=== PATIENT | male | born 2000 | race Caucasian/White ===

== ENCOUNTER 2024-01-04 10:25 | Inpatient (IN) | payer SELFPAY ==
[2024-01-04] VITALS (7 sets, daily range): BP systolic 125–136; BP diastolic 73–92; PULSE 100–129; RESP 18–20; TEMP 36.5–36.8; O2SAT 92–99; BMI 18.1
--- NOTE | 2024-01-04 10:37 | ED.C_ITS ---
HPI - Psych 2 General: Chief Complaint: Psychiatric Symptoms Stated Complaint: mhe Time Seen by Provider: 01/04/24 10:29 Source: patient Mode of arrival: ambulatory Limitations: no limitations History of Present Illness: 23-year-old male states that he has been severely depressed. He states that history depression he supposed be on meds but has not taken them in months. Patient here is a very depressed mood is very slow to answer my questions he does admit to being suicidal and having active suicidal thoughts denies any specific plan. Associated symptoms: Reports depression and suicidal ideation Related Data Home Medications Medication Instructions Recorded Confirmed No Known Home Medications 01/04/24 01/04/24 Allergies Allergy/AdvReac Type Severity Reaction Status Date / Time Penicillins Allergy ALGY-Swell Verified 01/04/24 10:48 Lip/Tongue/Throat Review of Systems 2 Const: Denies: fever(s), chills, body aches or change in appetite ENMT: Denies: throat pain or dental pain Card: Denies: chest pain Resp: Denies: dyspnea GI: Denies: abdominal pain, nausea, vomiting or diarrhea Musc: Denies: neck pain or back pain Skin/Breast: Denies: rash Neuro: Denies: headache(s) Psych: Reports: depression and suicidal ideation Physical Exam 2 Const: COMMON NORMALS: no acute distress, patient oriented x3 and healthy appearing HENMT: COMMON NORMALS: normocephalic and atraumatic HEAD & SCALP: n ormocephalic and atraumatic Eye: COMMON NORMALS: conjunctivae normal CONJUNCTIVA: Yes conjunctivae normal Neck/C-Spine: COMMON NORMALS: full ROM and supple Chest: COMMONS NORMALS: normal inspection of the chest Resp: COMMON NORMALS: normal respiratory effort Cardio: COMMON NORMALS: regular rate RATE: regular rate Extremity: COMMON NORMALS: normal to inspection and full ROM Neuro: COMMON NORMALS: patient oriented x3, moves all extremities and no focal motor deficits Psych: MOOD & AFFECT: Yes depressed mood THOUGHT CONTENT: Yes Suicidality present Skin: COMMON NORMALS: no rashes or lesions noted and no wounds GENERAL SKIN EXAM: no rashes or lesions noted Course 2 Vital Signs: Vital signs: Vital Signs Temperature 98.2 F 01/04/24 10:37 Pulse Rate 129 H 01/04/24 10:37 Blood Pressure 130/82 01/04/24 10:37 Pulse Oximetry 96 01/04/24 10:37 Oxygen Delivery Me thod Room Air 01/04/24 10:37 MDM - Psych Medical Decision Making Patient presents here with depression along with suicidal ideations patient is medically cleared I spoke to psychiatrist will admit at this time. Medical Records I reviewed the patient's medical records. Lab Data I reviewed the patient's lab results. 01/04/24 11:11 01/04/24 11:11 Laboratory Results WBC 11.26 10^3/uL (3.29-11.43) 01/04/24 11:11 RBC 5.59 10^6/uL (3.85-5.65) 01/04/24 11:11 Hgb 16.20 g/dL (11.27-16.99) 01/04/24 11:11 Hct 47.8 % (37-53) 01/04/24 11:11 MCV 85.5 fl (82-101) 01/04/24 11:11 MCH 29.0 pg (27-33) 01/04/24 11:11 MCHC 33.9 g/dL (30-55) 01/04/24 11:11 RDW 13.1 % (12.1-15.1) 01/04/24 11:11 Plt Count 284 10^3/cmm (157-399) 01/04/24 11:11 MPV 10.5 fL (7.4-10.4) H 01/04/24 11:11 Neut % (Auto) 78.5 % 01/04/24 11:11 Lymph % (Auto) 14.6 % 01/04/24 11:11 [place] % (Auto) 5.6 % 01/04/24 11:11 Eos % (Auto) 0.1 % 01/04/24 11:11 Baso % (Auto) 0.8 % 01/04/24 11:11 Neut # (Auto) 8.85 10^3/uL (1.8-7.7) H 01/04/24 11:11 Lymph # (Auto) 1.6 10^3/uL (0.8-4.8) 01/04/24 11:11 [place] # (Auto) 0.6 10^3/uL (0.2-0.9) 01/04/24 11:11 Eos # (Auto) 0.0 10^3/uL (0.0-0.8) 01/04/24 11:11 Baso # (Auto) 0.1 10^3/uL (0.0-0.1) 01/04/24 11:11 Nucleated RBC % (auto) 0 % 01/04/24 11:11 Nucleated RBCs # 0.0 /100WBC 01/04/24 11:11 Urine Opiates Screen Negative ng/mL (Negative) 01/04/24 10:38 Ur Barbiturates Screen Negative ng/mL (Negative) 01/04/24 10:38 Ur Phencyclidine Scrn Negative ng/mL (Negative) 01/04/24 10:38 Ur Amphetamines Screen Negative ng/mL (Negative) 01/04/24 10:38 U Benzodiazepines Scrn Negative ng/mL (Negative) 01/04/24 10:38 Urine Cocaine Screen Negative ng/mL (Negative) 01/04/24 10:38 U Marijuana (THC) Screen Negative ng/mL (Negative) 01/04/24 10:38 No radiology studies performed this visit Discharge Plan Discharge Patient Disposition: Admitted As Inpatient Clinical Impression: Suicidal ideation Condition: Stable Prescriptions: No Action No Known Home Medications Coding Level of Care Code ED Rotary Lithographic Press Operator for Shanika Carter
[2024-01-04 11:06] LABS: Amphetamines Screen Urine Negative (Negative); Barbiturates Screen Urine Negative (Negative); Benzodiazepines Screen Urine Negative (Negative); Cocaine Screen Urine Negative (Negative); Opiate Screen Urine Negative (Negative); PCP Screen Urine Negative (Negative); THC Screen Urine Negative (Negative)
--- NOTE | 2024-01-04 11:23 | PC.NURSE ---
96 hour hold rights read and reviewed with patient. Patient given a copy and verbalized understandings.
[2024-01-04 11:25] LABS: Basophils # 0.1 10^3/uL (0.0-0.1); Basophils % 0.8 %; Eosinophils % 0.1 %; Hematocrit 47.8 % (37-53); Lymphocytes # 1.6 10^3/uL (0.8-4.8); Lymphocytes % 14.6 %; Mean Corpuscular HGB Conc 33.9 g/dL (30-55); Mean Corpuscular Volume 85.5 fl (82-101); Mean Platelet Volume 10.5 fL (7.4-10.4); Monocytes # 0.6 10^3/uL (0.2-0.9); Monocytes % 5.6 %; Neutrophils # 8.85 10^3/uL (1.8-7.7); Neutrophils % 78.5 %; Nucleated Red Blood Cells % 0 %; Platelet Count 284 10^3/cmm (157-399); Red Blood Count 5.59 10^6/uL (3.85-5.65); Red Cell Distribution Width 13.1 % (12.1-15.1); White Blood Count 11.26 10^3/uL (3.29-11.43)
[2024-01-04 11:46] LABS: Alanine Aminotransferase 13 U/L (0-41); Alkaline Phosphatase 80 U/L (40-130); Anion Gap 22.6 (5-19); Aspartate Amino Transferase 16 U/L (0-40); Blood Urea Nitrogen 20 mg/dL (6-20); Calcium 9.7 mg/dL (8.5-10.5); Carbon Dioxide 25 mmol/L (22-29); Chloride 99 mmol/L (98-107); Creatinine Clr Calc Pharmacy 119.7767; Globulin 3.4 g/dL (1.3-4.6); Glomerular Filtration Rate 119.8 mL/min (90-130); Glucose 92 mg/dL (65-115); Osmolality Calculated 298 mOsm/kg (285-295); Potassium 3.6 mmol/L (3.5-5.1); Sodium 143 mmol/L (136-145); Total Bilirubin 0.7 mg/dL (0.15-1.2); Total Protein 8.4 g/dL (6.6-8.7)
[2024-01-04 11:47] LABS: Acetaminophen < 5.0 ug/mL (10-30); Alcohol Level < 10 mg/dL (0-10); Salicylate < 0.3 mg/dL (3-10)
[2024-01-05 05:41] VITALS: BP 118/79; PULSE 99; RESP 16; TEMP 36.6; O2SAT 100
--- NOTE | 2024-01-05 09:10 | PC.NURSE ---
PT CURRENTLY DENIES SI/HI/AH/VH. PT CURRENTLY ENDORSES DEPRESSION AND ANXIETY RATING BOTH A 10/10 ON A 0-10 SCALE WHERE 0 IS NONE AND 10 IS THE WORST POSSIBLE. THIS NURSE SPOKE WITH PT ABOUT PRN MEDICATIONS. PT INITIALLY AGREED. ONCE PT WAS GIVEN MEDICATION PT DID NOT TAKE MEDICATION. PT JUST STARED AT THIS NURSE. THIS NURSE ASKED PT IF HE STILL WANTED TO TAKE THE MEDICATION. PT CONTINUED TO JUST STARE AT THIS NURSE. DURING ASSESSMENT PT TOLD THIS NURSE I FEEL GUILTY. THIS NURSE ASKED IF THE PT WAS WILLING TO EXPLAIN WHY HE FEELS GUILTY PT STATED THE WAY I TREAT PEOPLE. PT RESPONSES ARE DELAYED AND MUMBLED. PT APPEARS GUARDED AND IS EVASIVE. PT HAS AN UNBLINKING STARE DURING CONVERSATION WITH THIS NURSE. PT WAS COOPERATIVE WITH ASSESSMENT AT THIS TIME.
--- NOTE | 2024-01-05 09:44 | PC.NURSE ---
this DINKEY MECHANIC spoke with pt about medication list. pt states uses [facility]. pt states he only takes the medicine for acid indigestion but he isnt now and the other medication he was taking he did not like so he hasnt been taking it. pt shook his head yes when asked if it was ok if I spoke with his mother and the pharmacy for medication information. spoke with [facility] phramacist stated that pt last time they recieved an prescription was 01/03/23 but pt did not pick any of them up. sertraline,buspar,venlafxine, arpiprazole. prescribing doctor is rachel Werner at [facility] phone number [phone]
--- NOTE | 2024-01-05 13:00 | P.NPUHP_ITS ---
Providers/Chief Complaint 2 Admitting Physician: Justo Ordaz MD Chief Complaint: mhe HPI NPU History of Present Illness Dangelo Moore is a 23 year old male who presented to the emergency department with complaints of being severely depressed. It was uncertain as to how the patient had come to arrive in the emergency department. He was admitted to the neuropsychiatric unit for further evaluation and treatment. On interview, the patient reports that he has been feeling more depressed. He had endorsed having some increase in suicidal thoughts but was not specific. He had answered questions extremely slowly with significant halting in his speech often lasting several seconds. He had reported that he had been previously treated for bipolar schizophrenia and stated that his previous medications had not helped him. He reports that he has not been on medication for several months. He had reported that he was initially from [place] and had come here less than a year ago in order to follow a girl. He denied any substance use. He had endorsed having increased concern that he would somehow be harmed and was reporting that he had concerns that others around him could read his mind and that his thoughts were being broadcasted. He reported having periods of intense depression but was unable to elaborate. He had reported having problems with concentration. The patient had reported no change in appetite. He had reported no clear problems with any medical issues. He had reported having some problems with managing his worry. He had indicated that he was having some difficulties with trusting others. He stated that he had previously been psychiatrically hospitalized and stated that he did not like hospitals and that he did not like taking medications. The patient had reported that he had felt that he was in some kind of trouble because he was lying to others but he did not elaborate regarding this matter. Inpatient psychiatric history: Patient had reported 2 previous inpatient hospitalizations in the last few years 1 in [facility] and another in [facility] in [place] both for psychiatric issues. Previous records had revealed that the patient had been treated with Abilify on an inpatient basis as well. Outpatient psychiatric history: None Substance abuse history: He had minimized any use of drugs or alcohol. Allergies: Penicillin Medical history: None reported Surgical history: None reported Current medications: None reported Legal history: He had reported some history of having his fingerprints tested but reported no clear legal problems. Family psychiatric history: He had reported a history of bipolar and schizophrenia and the maternal side of the family. Social history: Patient reports that he was born in [facility]. He reported that he had graduated from high school. He had denied any history of trauma during his childhood and reports that he grew up residing with his mother and stepfather. He had reported no siblings. He had reported having to previous relationships and reported having a recent break-up with a girl in [place] as well as a previous relationship with another woman in [place] who he states chose to stay in [place] when the patient moved to [place] for less than obvious reasons. He denied any history of sexual physical or emotional abuse. Meds NPU Home Medications Medication Instructions Recorded Confirmed Last Taken Type No Known Home Medications 01/04/24 01/04/24 Unknown History Allergies Allergy/AdvReac Type Severity Reaction Status Date / Time Penicillins Allergy ALGY-Swell Verified 01/04/24 10:48 Lip/Tongue/Throat Mental Status Exam 2 MSE Comments: Patient is a thin white male who appeared somewhat malnourished. There was no evidence of any abnormal involuntary motor movements tics or tremors appreciated. There was extreme psychomotor slowing noted but no overt catatonia appreciated. His speech was halting and extremely slow with incredibly prominent increase in speech latency. His thought process was linear and logical. His thought content showed some evidence of suicidal ideation without a plan. He denied any homicidal ideation. There was also evidence of guilt and a sense of hopelessness. He had acknowledged auditory hallucinations and did appear at times to be responding to internal stimuli. There was clear paranoia and evidence of some odd delusions and ideas of reference along with thought broadcasting noted. He was alert and oriented to person but did not answer regarding place or time. His recent and remote memory appeared poor at this time. His insight is impaired. His judgment is poor. His impulse control appeared limited. Vitals/I&O/Wt Last Vital Signs Temp 97.9 F 01/05/24 14:00 Pulse 105 H 01/05/24 14:00 Resp 18 01/05/24 14:00 BP 146/92 01/05/24 14:00 Pulse Ox 98 01/05/24 14:00 O2 Del Method Room Air 01/04/24 12:13 Weight last 48 hrs Weight 58.967 kg Data NPU 01/04/24 11:11 01/04/24 11:11 A&P Assessment and plan (1) Schizophrenia: Plan 23-year-old male admitted with a past history of schizophrenia or bipolar disorder currently on no medications and presenting with severe psychosis including thought blocking and thought broadcasting. #1.? Engage patient in individual milieu and group therapy. #2?? Recommend sober living treatment at the highest level of care to which the patient is willing to commit #3??? Trial of Invega recommended at 3mg, if patient refuses medication, will likely require forced medication as patient to remain on 96 hour hold. #4?? TO-15 minute checks #5?? Will attempt to gather collateral information Involuntary Hold Information 2 96 Hour Hold: 96 Hour Involuntary Admission: Yes 96 Hour Hold Ending Date: 01/10/24 96 Hour Hold Ending Time: 10:45 Attestations NPU 2 Medical Necessity Statement*: Inpatient hospitalization is medically necessary and deemed to ?be ?the clinically appropriate intervention ?at this time.? We will monitor/initiate medications and make changes as indicated.? The patient will be in the hospital for over 2 midnights.? The patient?s likely length of stay 7-10 days. Coding Level of Care Code Acute Code for Chg Fwd Diagnoses Schizophrenia F20.9
--- NOTE | 2024-01-05 13:15 | PC.NURSE ---
PT REFUSED SCHEDULED INVEGA. PT STATED THAT HE WAS WILLING TO TAKE THE MEDICATION THEN REFUSED TO TAKE IT. PT HELD THE MEDICATION CUP AND MOVED THE MEDICATION AROUND IN THE MED CUP BUT NEVER ATTEMPTED TO TAKE THE MEDICATION. PT THEN REFUSED TO TAKE THE MEDICATIONS.
[2024-01-05 14:00] VITALS: BP 146/92; PULSE 105; RESP 18; TEMP 36.6; O2SAT 98
--- NOTE | 2024-01-05 16:24 | PC.NURSE ---
@1532 female patient came to nurses window stating pt was in hallway without clothing. this maintenance and operations supervisor, CAT Escamilla, and Cat Aranda went out into hallway requested pt to go back into room an to please put his clothes back on. after walking up and down the hallway pt finally walked into his room, pt continues to stare at nursing staff but does not say anything. pt pulling on bottom of his shirt like he would like to rip it as he is pacing in his room.
--- NOTE | 2024-01-05 17:22 | PC.NURSE ---
pt in room ripped shirt in half, came out of bathroom with pants down walking towards this tar chaser and case management. pt did not respond verbally when spoken to but did after a pause pulled up his pants and gave this tar chaser his ripped shirt and replaced it with another one. pt while holding new shirt acted like he was tring to rip that one in half. security out in hallway for dayo.
[2024-01-05] MEDS: diphenhydrAMINE 50 mg/mL SDV 1mL IM (18:36)
[2024-01-05] MEDS: LORazepam 2 mg/mL INJ 1 mL IM (18:37)
[2024-01-05] MEDS: haloperidol inj 5 mg/mL INJ 1 mL IM (18:37)
--- NOTE | 2024-01-05 18:37 | PC.NURSE ---
GENERATION MANAGER ALERTED THIS NURSE THAT PT WAS ATTEMPTING TO RIP OFF HIS SCRUBS AGAIN. THIS NURSE WENT TO SPEAK WITH PT AND SEE IF THERE WAS SOMETHING WE COULD DO TO ASSIST. PT DID NOT RESPOND VERBALLY JUST CONTINUED TO ATTEMPT TO RIP HIS SCRUBS THIS NURSE OFFERED TO TAKE HIM INTO A ROOM THAT WOULD BE ONLY HIS TO MAKE HIM MORE COMFORTABLE. PT FOLLOWED THIS NURSE AND THE GENERATION MANAGER INTO HIS PRIVATE ROOM AND CONTINUED TO ATTEMPT TO RIP HIS SHIRT OFF. THIS NURSE WENT TO SPEAK WITH PHYSICIAN ABOUT NEXT STEP. PHYSICIAN ORDERED FOR PT TO RECEIVE BENADRYL 50MG IM, 5MG HALDOL IM AND 2MG ATIVAN IM. THIS NURSE CONTACTED SECURITY WHILE OPERATOR COATING FURNACE AND GENERATION MANAGER ARE WATCHING PT. THIS NURSE PREPARED MEDICATION AND THEN MEDICATIONS WERE ADMINISTERED.
--- NOTE | 2024-01-05 18:58 | PC.NURSE ---
@1825 walked down [facility] to observe pts, upon arriving to pt room pt looking out the window pt pulling on shirt attempting to rip it off, also pulling neckline of shirt hard enough to pull himself off balance an stumbling sideways. pt turn from window continuing to attempt to rip shirt off at that time pt pulled shirt up neck like he was going to choke himself x 3 times. Notified Auto Electrical Technician of pt activities.security called.this service station cashier verbally instructed pt that he was to stop pulling on his shirt and that we did not do that here, pt continued pulling shirt but did not pull his shirt as to choke himself. charge hand and security came to room pt asked to lay on bed,pt complied, Benadryl 50mg, Haldol 5mg and lorazepam 2mg administered Im by this service station cashier and Charge nurse. pt continues to lay in bed.
--- NOTE | 2024-01-05 19:45 | PC.NURSE ---
girlfriend number [phone] mom number [phone]
[2024-01-05 20:27] VITALS: BP 109/70; PULSE 111; RESP 15; O2SAT 99
[2024-01-06 06:00] VITALS: BP 116/77; PULSE 119; RESP 18; O2SAT 97
[2024-01-06] MEDS: paliperidone ER 3 mg Tablet PO (09:34)
[2024-01-06 14:00] VITALS: BP 108/70; PULSE 116; RESP 16; TEMP 36.6; O2SAT 98
--- NOTE | 2024-01-06 17:10 | P.NPUPN_ITS ---
Subjective NPU 2 Subjective: 23-year-old male with a history of unspe cified psychosis and possible schizophrenia admitted with paranoia, and complaints of depression, suicidal ideation and thought broadcasting. Patient had engaged in some very unusual behavior on the unit. He had stripped off his close yesterday and was walking around naked. He had required as needed medications for agitation. He had initially refused to take his medication orally but was able to take his medication this morning without difficulty. He had continued to report that he felt guilty and stated that he was feeling suicidal. He had admitted to having a relapse with the presence of the symptoms after discontinuing the medication shortly after his last hospitalization in the winter 2022. Mental Status Exam 2 MSE Comments: Patient is a thin white male who appeared to have significant psychomotor slowing. There was no evidence of any abnormal involuntary motor movements tics or tremors appreciated. His speech was halting and slow with incredibly prominent increase in increasee in speech latency. His thought process was linear but superficial. His thought content showed some evidence of suicidal ideation without a plan. He denied any homicidal ideation. There was also evidence of guilt and a sense of hopelessness. He had acknowledged auditory hallucinations and did appear at times to be responding to internal stimuli. There was clear paranoia and evidence of some odd delusions and ideas of reference along with thought broadcasting noted. He was alert and oriented to person but did not answer regarding place or time. There was active paranoia. His recent and remote memory appeared poor at this time. His insight is impaired. His judgment is poor. His impulse control appeared limited. He was alert and oriented to person and place, month and year but not date or day of week. Vitals/I&O/Wt Last Vital Signs Temp 97.8 F 01/06/24 14:00 Pulse 116 H 01/06/24 14:00 Resp 16 01/06/24 14:00 BP 108/70 01/06/24 14:00 Pulse Ox 98 01/06/24 14:00 O2 Del Method Room Air 01/04/24 12:13 Data NPU 01/04/24 11:11 01/04/24 11:11 A&P Assessment and plan (1) Schizophrenia: Plan 23-year-old male admitted with a past history of schizophrenia or bipolar disorder currently on no medications and presenting with severe psychosis including thought blocking and thought broadcasting. #1.? Engage patient in individual milieu and group therapy. #2?? Recommend sober living treatment at the highest level of care to which the patient is willing to commit #3??? Increase invega to 6mg daily, if patient refuses medication, he will likely require forced medication as patient to remain on 96 hour hold. #4?? TO-15 minute checks #5?? Will attempt to gather collateral information Involuntary Hold Information 2 96 Hour Hold: 96 Hour Involuntary Admission: Yes 96 Hour Hold Ending Date: 01/10/24 96 Hour Hold Ending Time: 10:45 Attestations NPU 2 Medical Necessity Statement*: Inpatient hospitalization is medically necessary and deemed to ?be ?the clinically appropriate intervention ?at this time.? We will monitor/initiate medications and make changes as indicated.? The patient?s likely length of stay 7-10 days. Coding Level of Care Code Acute Code for Chg Fwd Diagnoses Schizophrenia F20.9
[2024-01-06 22:00] VITALS: BP 111/78; PULSE 103; RESP 18; TEMP 36.8; O2SAT 97
[2024-01-07 06:00] VITALS: BP 99/68; PULSE 113; RESP 18; O2SAT 98
[2024-01-07] MEDS: paliperidone ER 3 mg Tablet 6 MG PO (08:41)
--- NOTE | 2024-01-07 08:45 | PC.NURSE ---
RN IN ROOM TO ATTEMPT ASSESSMENT. PT IS EVASIVE WITH ASSESSMENT AND PRESENTS WITH FLAT AFFECT AND STARES OFF INTO SPACE. WHEN ASKED A QUESTION PT LOOKS UP OR TO THE SIDE THEN ANSWERS THE QUESTION WITH A DELAYED RESPONSE AND IS NOTED TO HAVE DIFFICULTY FINDING THE WORDS OR FORMING SENTENCE STRUCTURE. MOOD APPEARS DEPRESSED. DOES RATE ANXIETY 4/10 AND DEPRESSION SHAKES HIS HEAD NO SHAKES HEAD YES TO SLEEPING GOOD LAST NIGHT. PT MAKES LITTLE TO NO EYE CONTACT WITH NURSE. DENIES PAIN. WHEN ASKED WHAT HIS GOAL IS FOR THE DAY PT CONTINUES TO STARE AT THE FLOOR AND GIVES NO REPSONSE. RN ASKED IF HE NEEDED ANYTHING, PT CONTINUED TO STARE OFF AND DID NOT ANSWER. SUPPORT WAS VOICED. PT DOES NOT INTERACT WITH STAFF OR PEERS. WITHDRAWS TO ROOM AND ISOLATES AWAY FROM OTHERS.
--- NOTE | 2024-01-07 11:34 | PC.NURSE ---
PT WAS OBSERVED PACING IN DAYROOM PULLING AT SCRUB TOP IF HE WAS VERY AGITATED. STAFF OBSERVED ANOTHER PT HAD MOVED CHAIRS AND TABLES RESULTING IN BLOCKING IN PT IN THE DAY ROOM. THE OTHER PT WAS ALSO OBSERVED TALKING TO HIM NON STOP WHICH RESULTED IN AGITATING HIM MORE. STAFF IMMEDIATELY WENT AND RE-ARRANGED THE CHAIRS AND TABLES SO PT COULD MOVE FREELY. STAFF ALSO REDIRECTED THE OTHER PT AWAY FROM HIM AND EDUCATED TO STOP TALKING TO HIM EXCESSIVELY. PT WAS OFFERED PRN ANXIETY MEDICATIONS BUT PT JUST STOOD AND STARED AT STAFF PULLING ON SCRUB TOP AND DID NOT SAY A WORD. PT THEN WENT TO ROOM LAID DOWN, TOOK OFF SCRUB TOP AND WAS OBSERVED RESTING. PT CONTINUES TO STAY IN ROOM AND REST. THE OTHER PATIENT ON THE UNIT THAT WAS UPSETTING HIM WAS MOVED TO THE NORTH SIDE TO DISCOURAGE ANYMORE ANXIETY INDUCING BEHAVIORS. .
[2024-01-07 14:00] VITALS: BP 116/77; PULSE 95; RESP 16; TEMP 36.6; O2SAT 100
--- NOTE | 2024-01-07 14:33 | P.NPUPN_ITS ---
Subjective NPU 2 Subjective: 23-year-old male with a history of unspe cified psychosis and possible schizophrenia admitted with paranoia, and complaints of depression, suicidal ideation and thought broadcasting. The patient described his mood is not well. He had continued to isolate himself on the milieu. He had not engaged in any stripping of his close today. He continued to endorse feeling as if his thoughts were somehow betraying him. He had reported some feelings of guilt and continued to endorse depressed mood. The patient reported having a significant amount of worry but would not elaborate. The patient had reported having some difficulties with sleep. Mental Status Exam 2 MSE Comments: Patient is a thin white male who appeared to have significant psychomotor slowing. There was no evidence of any abnormal involuntary motor movements tics or tremors appreciated. His speech was halting and slow with incredibly prominent increase in increasee in speech latency. His thought process was linear but superficial. His thought content showed some evidence of suicidal ideation without a plan. He denied any homicidal ideation. There was also evidence of guilt and a sense of hopelessness. He had acknowledged auditory hallucinations and did appear at times to be responding to internal stimuli. There was clear paranoia and evidence of some odd delusions and ideas of reference along with thought broadcasting noted. He was alert and oriented to person but did not answer regarding place or time. There was active paranoia. His recent and remote memory appeared poor at this time. His insight is impaired. His judgment is poor. His impulse control appeared limited. He was alert and oriented to person and place, month and year but not date or day of week. Vitals/I&O/Wt Last Vital Signs Temp 98 F 01/07/24 14:00 Pulse 95 01/07/24 14:00 Resp 16 01/07/24 14:00 BP 116/77 01/07/24 14:00 Pulse Ox 100 01/07/24 14:00 O2 Del Method Room Air 01/07/24 06:00 Data NPU 01/04/24 11:11 01/04/24 11:11 A&P Assessment and plan (1) Schizophrenia: Plan 23-year-old male admitted with a past history of schizophrenia or bipolar disorder currently on no medications and presenting with severe psychosis including thought blocking and thought broadcasting. #1.? Engage patient in individual milieu and group therapy. #2?? Recommend sober living treatment at the highest level of care to which the patient is willing to commit #3???Continue invega 6mg daily, if patient refuses medication, he will likely require forced medication as patient to remain on 96 hour hold. #4?? TO-15 minute checks #5?? Will attempt to gather collateral information Involuntary Hold Information 2 96 Hour Hold: 96 Hour Involuntary Admission: Yes 96 Hour Hold Ending Date: 01/10/24 96 Hour Hold Ending Time: 10:45 Attestations NPU 2 Medical Necessity Statement*: Inpatient hospitalization is medically necessary and deemed to ?be ?the clinically appropriate intervention ?at this time.? We will monitor/initiate medications and make changes as indicated.? The patient?s likely length of stay 7-10 days. Coding Level of Care Code Acute Code for Chg Fwd Diagnoses Schizophrenia F20.9
[2024-01-07 20:50] VITALS: BP 124/89; PULSE 128; RESP 20; TEMP 36.4; O2SAT 98
[2024-01-07] MEDS: diphenhydrAMINE 50 mg/mL SDV 1mL IM (20:52)
[2024-01-07] MEDS: LORazepam 2 mg/mL INJ 1 mL IM (21:25)
[2024-01-07 22:16] VITALS: BP 121/86; PULSE 108; RESP 17; TEMP 36.6; O2SAT 99
--- NOTE | 2024-01-07 23:18 | PC.NURSE ---
Patient medication reaction Around 2044 patient calmly walked up to the nurse?s station complaining of his neck hurting. It was observed that his head was tipped toward his left shoulder and fixed. This nurse administered Cogentin per protocol for EPS, see Mar, than called Dr. Singer immediately. Orders where given to give 50 mg of Benadryl IM and it was administered at 2049, see MAR, while patient was sitting on the bench. Security was present. It was observed that the patient?s eyes were fixed and he was not responding to questions unless they were repeated several times. Patient was than assisted back to his room and this nurse and CK Manriquez stayed with the patient. type photography supervisor Xochilt was notified and arrived shortly after. By 2112, the patient?s symptoms, as stated, where not improving so this nurse called Dr. Singer again. Orders were given to give 2 mg Ativan IM. It was given at 2122, see MAR. New orders received for further treatment if symptoms return. Staff remained with patient. Around 2139 the patients symptoms had resolved and he walked to the desk to get snacks. Patient than went to the dayroom and played cards and CK Manriquez remained with him for approximately 30 minutes. Patient remained calm during this episode. Patient stated the symptoms had started just moments before he notified staff. Patient was educated that if these symptoms return to notify staff immediately.
[2024-01-08 06:00] VITALS: BP 101/65; PULSE 78; RESP 16; O2SAT 97
--- NOTE | 2024-01-08 09:27 | PC.NURSE ---
Addendum entered by Kori Christianson RN 01/08/24 09:29: continuation of note: Patient also said that he is doing better than yesterday because he is not letting thoughts get into my head. This nurse asked if he remembered what has been going on over the last few days. Patient said that he remembers groups and what people have told him. Patient oriented to self and location, able to answer that he is in a hospital in [place]. Denies pain. BM today. Original Note: Morning Assessment Patient cooperative and appropriate during morning assessment. Patient had appropriate eye contact with this nurse, with appropriate speech delivery. Patient denies suicidal thoughts, homicidal thoughts, and AVH. Patient states that he has some anxious and depressive feelings because he is always trying to make everybody else happy, always trying to not let people down. Patient went on to say that he puts everybody's needs above his own needs. Aliyah
[2024-01-08 14:00] VITALS: BP 106/72; PULSE 103; RESP 16; TEMP 36.8; O2SAT 96
--- NOTE | 2024-01-08 14:53 | P.NPUPN_ITS ---
Subjective NPU 2 Subjective: 23-year-old male with a history of unspe cified psychosis and possible schizophrenia admitted with paranoia, and complaints of depression, suicidal ideation and thought broadcasting. The patient had reported feeling significantly better and was more alert and engaged in treatment. Unfortunately the patient appeared to have some episode of neck stiffness a lot requiring the use of anticholinergics last night to relieve the symptoms. He had also reported having this problem previously on Abilify approximately 9 months ago. He had continued to report being distracted by his thoughts but stated that it was better currently. There was no episodes of stripping his clothes off yesterday. Mental Status Exam 2 MSE Comments: Patient is a thin white male who appeared to have significant psychomotor slowing. There was no evidence of any abnormal involuntary motor movements tics or tremors appreciated. His speech was halting but more fluent and less prominent speech latency. His thought process was linear but superficial. His thought content showed some evidence of suicidal ideation without a plan. He denied any homicidal ideation. There was also evidence of guilt and a sense of hopelessness. He had acknowledged auditory hallucinations and did appear at times to be responding to internal stimuli. There was clear paranoia and evidence of some odd delusions and ideas of reference along with thought broadcasting noted. He was alert and oriented to person but did not answer regarding place or time. There was active paranoia. His recent and remote memory appeared poor at this time. His insight is impaired. His judgment is poor. His impulse control appeared limited. He was alert and oriented to person and place, month and year but not date or day of week. Vitals/I&O/Wt Last Vital Signs Temp 98.2 F 01/08/24 14:00 Pulse 103 H 01/08/24 14:00 Resp 16 01/08/24 14:00 BP 106/72 01/08/24 14:00 Pulse Ox 96 01/08/24 14:00 O2 Del Method Room Air 01/08/24 14:00 Weight last 48 hrs Weight 60.951 kg Data NPU 01/04/24 11:11 01/04/24 11:11 A&P Assessment and plan (1) Schizophrenia: Plan 23-year-old male admitted with a past history of schizophrenia or bipolar disorder currently on no medications and presenting with severe psychosis including thought blocking and thought broadcasting. #1.? Engage patient in individual milieu and group therapy. #2?? Recommend sober living treatment at the highest level of care to which the patient is willing to commit #3???Will hold Invega and begin Abilify 10mg daily instead. #4?? TO-15 minute checks #5?? Will attempt to gather collateral information Involuntary Hold Information 2 96 Hour Hold: 96 Hour Involuntary Admission: Yes 96 Hour Hold Ending Date: 01/10/24 96 Hour Hold Ending Time: 10:45 Attestations NPU 2 Medical Necessity Statement*: Inpatient hospitalization is medically necessary and deemed to ?be ?the clinically appropriate intervention ?at this time.? We will monitor/initiate medications and make changes as indicated.? The patient?s likely length of stay 7-10 days. Coding Level of Care Code Acute Code for Chg Fwd Diagnoses Schizophrenia F20.9
[2024-01-08] MEDS: benztropine 1 mg Tablet PO (17:58)
[2024-01-08] MEDS: ARIPiprazole 10 mg Tablet PO (20:09)
[2024-01-08] MEDS: hyDROXYzine 25 mg Capsule 50 MG PO (20:09)
[2024-01-08 21:29] VITALS: BP 123/77; PULSE 108; RESP 18; TEMP 36.5; O2SAT 96
[2024-01-09 06:00] VITALS: BP 118/78; PULSE 105; RESP 17; TEMP 36.4; O2SAT 98
--- NOTE | 2024-01-09 08:54 | PC.NURSE ---
IN DAY ROOM EATING BREAKFAST. DENIES PAIN. DENIES SI/HI AND AVH AT THIS TIME. PT IS NOTED TO HAVE FLAT AFFECT BUT IS INTERACTING WITH RN BETTER THAN PREVIOUS DAYS. PTS SPEECH IS NO LONGER DELAYED. RATES ANXIETY 5/10 AND DEPRESSION 4/10. MED NURSE NOTIFIED OF INCREASED ANXIETY SO PT CAN RECEIVE MEDICATIONS TO HELP DECREASE HIS ANXIETY. PT STATES GOAL FOR THE DAY IS THE SAME USUAL I NEED TO JUST GET RIGHT I GUESS. PT REPORTED A REACTION WHILE TAKING THE INVEGA THAT IT MADE MY NECK REAL TIGHT. PT WAS EDUCATED THAT HE WOULD CONTINUE TO RECEIVE COGENTIN WHILE ON ANTIPSYCHOTICS TO REDUCE AND RELIEVE THE EFFECTS. PT VERBALZIED UNDERSTANDING. ALL QUESTIONS ANSWERED AND SUPPORT VOICED.
[2024-01-09] MEDS: benztropine 1 mg Tablet PO ×2 (09:04→17:50)
[2024-01-09] MEDS: hyDROXYzine 25 mg Capsule 50 MG PO ×2 (09:04→21:06)
[2024-01-09 14:00] VITALS: BP 116/77; PULSE 107; RESP 16; TEMP 36.7; O2SAT 99
--- NOTE | 2024-01-09 16:11 | P.NPUPN_ITS ---
Subjective NPU 2 Subjective: 23-year-old male with a history of unspe cified psychosis and likely schizophrenia admitted with paranoia, and complaints of depression, suicidal ideation and thought broadcasting. The patient reported that he continued to have isolate himself fearing that others could listen to his thoughts. The patient had reported adequate sleep. He had reported no complaints of neck stiffness today. He reported continued depression but minimized having thoughts of suicide today. He had continued to state that he had been distracted by his thoughts as he had described having problems with making decisions. No bizarre behavior was noted on the unit today. Mental Status Exam 2 MSE Comments: Patient is a thin white male who appeared to have significant psychomotor slowing. There was no evidence of any abnormal involuntary motor movements tics or tremors appreciated. His speech was halting but more fluent and with continued increase in speech latency. His thought process was linear but superficial. His thought content showed some evidence of suicidal ideation without a plan. He denied any homicidal ideation. There was also evidence of guilt and a sense of hopelessness. He had acknowledged auditory hallucinations and did appear at times to be responding to internal stimuli. There was clear paranoia and evidence of some odd delusions and ideas of reference along with thought broadcasting noted. He was alert and oriented to person but did not answer regarding place or time. There was active paranoia. His recent and remote memory appeared poor at this time. His insight is impaired. His judgment is poor. His impulse control appeared limited. He was alert and oriented to person and place, month and year but not date or day of week. Vitals/I&O/Wt Last Vital Signs Temp 98.1 F 01/09/24 14:00 Pulse 107 H 01/09/24 14:00 Resp 16 01/09/24 14:00 BP 116/77 01/09/24 14:00 Pulse Ox 99 01/09/24 14:00 O2 Del Method Room Air 01/09/24 14:00 Weight last 48 hrs Weight 60.951 kg Data NPU 01/04/24 11:11 01/04/24 11:11 A&P Assessment and plan (1) Schizophrenia: Plan 23-year-old male admitted with a past history of schizophrenia or bipolar disorder currently on no medications and presenting with severe psychosis including thought blocking and thought broadcasting. #1.? Engage patient in individual milieu and group therapy. #2?? Recommend sober living treatment at the highest level of care to which the patient is willing to commit #3???Increase abilify to 15mg daily. #4?? TO-15 minute checks #5?? Will attempt to gather collateral information Involuntary Hold Information 2 96 Hour Hold: 96 Hour Involuntary Admission: Yes 96 Hour Hold Ending Date: 01/10/24 96 Hour Hold Ending Time: 10:45 Attestations NPU 2 Medical Necessity Statement*: Inpatient hospitalization is medically necessary and deemed to ?be ?the clinically appropriate intervention ?at this time.? We will monitor/initiate medications and make changes as indicated.? The patient?s likely length of stay 5-7 days. Coding Level of Care Code Acute Code for Chg Fwd Diagnoses Schizophrenia F20.9
[2024-01-09] MEDS: ARIPiprazole 10 mg Tablet PO (21:06)
[2024-01-09 22:00] VITALS: BP 124/86; PULSE 91; RESP 16; TEMP 36.7; O2SAT 98
[2024-01-10 06:00] VITALS: BP 100/69; PULSE 97; RESP 13; TEMP 37.2; O2SAT 97
[2024-01-10] MEDS: benztropine 1 mg Tablet PO ×2 (08:56→18:40)
[2024-01-10 14:00] VITALS: BP 121/82; PULSE 89; RESP 16; O2SAT 99
--- NOTE | 2024-01-10 16:49 | P.NPUPN_ITS ---
Subjective NPU 2 Subjective: 23-year-old male with a history of unspe cified psychosis and likely schizophrenia admitted with paranoia, and complaints of depression, suicidal ideation and thought broadcasting. The patient had reported feeling much better. He had been less isolative on the milieu. He had been conversant with other peers. The patient had stated that he had spoken with his current girlfriend and was willing to sign into the hospital voluntarily today. The patient was able to admit that he had been noncompliant with these medications before but stated that he would probably be able to remember to take 1 pill a day. He had been reporting less ideas of feeling as if his mind and thoughts were being broadcasted for 2 others. Mental Status Exam 2 MSE Comments: Patient is a thin white male who appeared to have less psychomotor slowing. There was no evidence of any abnormal involuntary motor movements tics or tremors appreciated. His speech was halting but more fluent and with less speech latency. His thought process was linear and logical. His thought content showed no suicidal or homicidal ideation. He had acknowledged auditory hallucinations and did appear at times to be responding to internal stimuli. There was residual paranoia but no overt paranoia. He was alert and oriented to person but did not answer regarding place or time. His recent and remote memory appeared poor at this time. His insight is impaired. His judgment is poor. His impulse control appeared limited. He was alert and oriented to person and place, month and year but not date or day of week. Vitals/I&O/Wt Last Vital Signs Temp 99.0 F 01/10/24 06:00 Pulse 89 01/10/24 14:00 Resp 16 01/10/24 14:00 BP 121/82 01/10/24 14:00 Pulse Ox 99 01/10/24 14:00 O2 Del Method Room Air 01/10/24 06:00 Data NPU 01/04/24 11:11 01/04/24 11:11 A&P Assessment and plan (1) Schizophrenia: Plan 23-year-old male admitted with a past history of schizophrenia or bipolar disorder currently on no medications and presenting with severe psychosis including thought blocking and thought broadcasting. #1.? Engage patient in individual milieu and group therapy. #2?? Recommend sober living treatment at the highest level of care to which the patient is willing to commit #3?? Continue abilify at 15mg daily. #4?? TO-15 minute checks #5?? Will attempt to gather collateral information Involuntary Hold Information 2 96 Hour Hold: 96 Hour Involuntary Admission: Yes 96 Hour Hold Ending Date: 01/10/24 96 Hour Hold Ending Time: 10:45 Attestations NPU 2 Medical Necessity Statement*: Inpatient hospitalization is medically necessary and deemed to ?be ?the clinically appropriate intervention ?at this time.? We will monitor/initiate medications and make changes as indicated.? The patient?s likely length of stay 5-7 days. Coding Level of Care Code Acute Code for Chg Fwd Diagnoses Schizophrenia F20.9
[2024-01-10 20:20] VITALS: BP 119/83; PULSE 85; RESP 18; TEMP 36.6; O2SAT 99
[2024-01-10] MEDS: sennosides-docusate Tablet 1 TAB PO (20:29)
[2024-01-10] MEDS: hyDROXYzine 25 mg Capsule 50 MG PO (20:29)
[2024-01-10] MEDS: ARIPiprazole 10 mg Tablet 15 MG PO (20:29)
[2024-01-11 06:00] VITALS: BP 107/74; PULSE 97; RESP 16; TEMP 36.6; O2SAT 99
[2024-01-11] MEDS: benztropine 1 mg Tablet PO ×2 (08:41→17:42)
[2024-01-11] MEDS: bisacodyl 10 mg Supp PR (11:13)
[2024-01-11 14:00] VITALS: BP 116/80; PULSE 106; RESP 16; TEMP 36.9; O2SAT 97
--- NOTE | 2024-01-11 18:47 | P.NPUPN_ITS ---
Subjective NPU 2 Subjective: 23-year-old male with acute psychosis ad mitted with increased paranoia and thought broadcasting. The patient reported feeling much better. He reported no suicidal thoughts. He had stated that he felt much better other than having problems with extreme constipation. He had stated that he was less fearful that his thoughts were being broadcast and stated that the voices in his head were quieter. The patient reported that he was comfortable with going home soon and stated that he understood that he needed to continue to take this medication to prevent relapse. Mental Status Exam 2 MSE Comments: Patient is a thin white male who appeared to have considerably less psychomotor slowing. There was no evidence of any abnormal involuntary motor movements tics or tremors appreciated. His speech was more fluent and minimal speech latency. His thought process was linear and logical. His thought content showed no suicidal or homicidal ideation. He had acknowledged auditory hallucinations that were quieter as he did not appear to be responding to internal stimuli. There was no paranoia. He His recent and remote memory appeared improved at this time. His insight is improving. His judgment is better. His impulse control appeared guarded. He was alert and oriented x3 Vitals/I&O/Wt Last Vital Signs Temp 98.4 F 01/11/24 14:00 Pulse 106 H 01/11/24 14:00 Resp 16 01/11/24 14:00 BP 116/80 01/11/24 14:00 Pulse Ox 97 01/11/24 14:00 O2 Del Method Room Air 01/11/24 14:00 Data NPU 01/04/24 11:11 01/04/24 11:11 A&P Assessment and plan (1) Schizophrenia: Plan 23-year-old male admitted with a past history of schizophrenia or bipolar disorder currently on no medications and presenting with severe psychosis including thought blocking and thought broadcasting. #1.? Engage patient in individual milieu and group therapy. #2?? Recommend sober living treatment at the highest level of care to which the patient is willing to commit #3?? Continue abilify at 15mg daily. #4?? TO-15 minute checks #5?? Will help with constipation today, use of suppository and laxative. Likely d/c in 1-2 days. Involuntary Hold Information 2 96 Hour Hold: 96 Hour Involuntary Admission: Yes 96 Hour Hold Ending Date: 01/10/24 96 Hour Hold Ending Time: 10:45 Attestations NPU 2 Medical Necessity Statement*: Inpatient hospitalization is medically necessary and deemed to ?be ?the clinically appropriate intervention ?at this time.? We will monitor/initiate medications and make changes as indicated.? The patient?s likely length of stay 1-2 days. Coding Level of Care Code Acute Code for Chg Fwd Diagnoses Schizophrenia F20.9
[2024-01-11 20:17] VITALS: BP 118/79; PULSE 93; RESP 18; TEMP 36.4; O2SAT 100
[2024-01-11] MEDS: sennosides-docusate Tablet 1 TAB PO (21:08)
[2024-01-11] MEDS: ARIPiprazole 10 mg Tablet 15 MG PO (21:09)
[2024-01-12 06:30] VITALS: BP 120/74; PULSE 89; RESP 17; TEMP 36.4; O2SAT 98
--- NOTE | 2024-01-12 09:33 | PC.NURSE ---
IN DAY ROOM EATING. PT CONTINUES TO HAVE A VERY FLAT AFFECT WITH DELAYED SPEECH AND SLOW TO RESPOND TO QUESTIONS. PT APPEARS TO BE CONFUSED ABOUT WHAT RN IS ASKING AND HAS TO BE PROMPTED ON THE ANSWERS OR QUESTIONS NEED REPEATED. DENIES PAIN.. DENIES SI/HI AND AVH AT THIS TIME. REPORTS HE SLEPT OKAY I THINK STATES HE HAS NOT HAD A BM IN A FEW DAYS BUT HAS TAKEN SOMETHING TO GO. PT STATES HIS GOAL IS TO LEAVE AND SEE MY FAMILY. PT WAS GIVEN PRIVACY TO USE THE RESTROOM. ALL QUESTIONS ANSWERED AND SUPPORT WAS VOICED.
[2024-01-12] MEDS: benztropine 1 mg Tablet PO ×2 (10:55→17:01)
[2024-01-12] MEDS: magnesium hydroxide 30 mL UDC PO (10:55)
[2024-01-12 14:00] VITALS: BP 117/72; PULSE 117; RESP 16; TEMP 36.5; O2SAT 97
--- NOTE | 2024-01-12 14:56 | P.NPUPN_ITS ---
Subjective NPU 2 Subjective: 23-year-old male with acute psychosis ad mitted with increased paranoia and thought broadcasting. The patient had reported feeling worse today. He had reported feeling guilty and stated that he had been lying to his friends and family regarding how he was doing. He had reported that he continued to feel distracted by his thoughts. He was found to be spending excessive amounts of time in the bathroom. He had complained of constipation but stated that he had been spending time thinking. Staff notes the patient had appeared more isolative and he had shown evidence of difficulties with word finding. Mental Status Exam 2 MSE Comments: Patient is a thin white male who appeared to have increased psychomotor slowing today. There was no evidence of any abnormal involuntary motor movements tics or tremors appreciated. His speech was less fluent and increase in speech latency compared to yesterday. His thought process was linear and logical. His thought content showed no suicidal or homicidal ideation. He had acknowledged auditory hallucinations and appeared to be preoccupied with excess rumination noted. He did appear to be responding to internal stimuli. His recent and remote memory appeared worse today. His insight is limited. His judgment was poor today. His impulse control appeared guarded. He was alert and oriented x3. Vitals/I&O/Wt Last Vital Signs Temp 97.5 F L 01/12/24 06:30 Pulse 89 01/12/24 06:30 Resp 17 01/12/24 06:30 BP 120/74 01/12/24 06:30 Pulse Ox 98 01/12/24 06:30 O2 Del Method Room Air 01/11/24 14:00 Data NPU 01/04/24 11:11 01/04/24 11:11 A&P Assessment and plan (1) Schizophrenia: Plan 23-year-old male admitted with a past history of schizophrenia or bipolar disorder currently on no medications and presenting with severe psychosis including thought blocking and thought broadcasting. #1.? Engage patient in individual milieu and group therapy. #2?? Recommend sober living treatment at the highest level of care to which the patient is willing to commit #3?? Increase abilify to 20mg daily. MONITOR closely for EPS. #4?? TO-15 minute checks #5?? Will help with constipation today, use of suppository and laxative. Involuntary Hold Information 2 96 Hour Hold: 96 Hour Involuntary Admission: Yes 96 Hour Hold Ending Date: 01/10/24 96 Hour Hold Ending Time: 10:45 Attestations NPU 2 Medical Necessity Statement*: Inpatient hospitalization is medically necessary and deemed to ?be ?the clinically appropriate intervention ?at this time.? We will monitor/initiate medications and make changes as indicated.? The patient?s likely length of stay 3-5 Mondays. Coding Level of Care Code Acute Code for Chg Fwd Diagnoses Schizophrenia F20.9
[2024-01-12] MEDS: ARIPiprazole 10 mg Tablet 15 MG PO (21:09)
[2024-01-12] MEDS: trazodone 50 mg Tablet PO (21:09)
[2024-01-12] MEDS: sennosides-docusate Tablet 1 TAB PO (21:09)
[2024-01-12 22:00] VITALS: BP 122/78; PULSE 89; RESP 18; TEMP 36.7; O2SAT 97
[2024-01-13 05:41] VITALS: BP 105/62; PULSE 95; RESP 16; TEMP 36.5; O2SAT 98
[2024-01-13] MEDS: benztropine 1 mg Tablet PO ×2 (08:45→17:15)
[2024-01-13] MEDS: hyDROXYzine 25 mg Capsule 50 MG PO (08:57)
--- NOTE | 2024-01-13 09:06 | PC.NURSE ---
Morning Assessment Patient reports constant anxiety. Patient says that he is always trying to help others instead of focusing on his own needs, which is triggering his anxiety. Patient denies suicidal ideation, homicidal ideation, and hallucinations. patient's responses to questions were delayed at times. Patient given vistaril 50mg PO. All questions answered.
[2024-01-13 14:00] VITALS: BP 114/78; PULSE 114; RESP 18; TEMP 37.5; O2SAT 97
--- NOTE | 2024-01-13 17:52 | P.NPUPN_ITS ---
Subjective NPU 2 Subjective: Patient presented today reporting that he is doing okay. He reports that things had been difficult recently. He reported that he feels he is getting better with the medication and denied any specific side effects to it. He reports how he had stopped taking the medication because he really does not like being on medication. He did report that he has been on the Abilify in the past and he thinks that it helped but he is not sure why he really stopped it. We talked about the likelihood of increasing his Abilify tomorrow after discussion of the risks, benefits and alternatives he understood and agreed to proceed as is documented in this note. He denies any current side effects of the medication. Mental Status Exam 2 MSE Comments: This is an underweight versus cachectic thin white male in hospital scrubs with limited grooming and eye contact. No abnormal movements except for psychomotor retardation.. There was no evidence of any abnormal involuntary motor movements tics or tremors appreciated. His speech was limited and decreased rate and volume. Mood described as okay, affect slightly subdued. His thought process was linear and logical. His thought content showed no suicidal or homicidal ideation. He had acknowledged auditory hallucinations and appeared to be preoccupied with excess rumination noted. He did appear to be responding to internal stimuli. Attention and concentration were limited. His recent and remote memory appeared worse today. His insight is limited. His judgment was poor today. His impulse control appeared guarded. He was alert and oriented x3. Vitals/I&O/Wt Last Vital Signs Temp 99.5 F 01/13/24 14:00 Pulse 114 H 01/13/24 14:00 Resp 18 01/13/24 14:00 BP 114/78 01/13/24 14:00 Pulse Ox 97 01/13/24 14:00 O2 Del Method Room Air 01/13/24 14:00 Data NPU 01/04/24 11:11 01/04/24 11:11 A&P Assessment and plan (1) Schizophrenia: Plan 23-year-old male admitted with a past history of schizophrenia or bipolar disorder currently on no medications and presenting with severe psychosis including thought blocking and thought broadcasting. 1. Continue current medication. Will increase Abilify to 20 mg p.o. daily tomorrow. Be mindful for EPS. 2. Continue every 15 minute checks for safety. 3. Encourage individual, group and milieu therapy. 4. Encourage sober living treatment after discharge at the highest level care to which he is willing to commit. Involuntary Hold Information 2 96 Hour Hold: 96 Hour Involuntary Admission: Yes 96 Hour Hold Ending Date: 01/10/24 96 Hour Hold Ending Time: 10:45 Attestations NPU 2 Medical Necessity Statement*: Inpatient hospitalization is medically necessary and deemed to ?be ?the clinically appropriate intervention ?at this time.? We will monitor/initiate medications and make changes as indicated.? The patient?s likely length of stay 3-5 days. Coding Level of Care Code Acute Code for Chg Fwd Diagnoses Schizophrenia F20.9
[2024-01-13] MEDS: ARIPiprazole 10 mg Tablet 15 MG PO (20:31)
[2024-01-13] MEDS: sennosides-docusate Tablet 1 TAB PO (20:31)
[2024-01-13] MEDS: trazodone 50 mg Tablet PO (20:31)
[2024-01-13 21:27] VITALS: BP 107/75; PULSE 109; RESP 18; TEMP 36.9; O2SAT 96
[2024-01-14 06:00] VITALS: BP 108/68; PULSE 83; RESP 16; TEMP 36.5; O2SAT 98
[2024-01-14] MEDS: benztropine 1 mg Tablet PO ×2 (10:07→17:41)
--- NOTE | 2024-01-14 11:54 | P.NPUPN_ITS ---
Subjective NPU 2 Subjective: Patient presented today reporting that he is doing okay. He appears to appreciate the impact of the medication and was focusing on how he seems to get caught up in these patterns of thing he does not need the medication and that he is better off without it and then he gets into difficult times and then the medications restarted and is clear at that time that the medication helps but he somehow loses sight of that. He denies any side effects of the medication and reports a plan to continue it after discharge. Mental Status Exam 2 MSE Comments: This is an underweight versus cachectic thin white male in hospital scrubs with limited grooming and eye contact. No abnormal movements except for psychomotor retardation.. There was no evidence of any abnormal involuntary motor movements tics or tremors appreciated. His speech was limited and decreased rate and volume. Mood described as okay, affect slightly subdued. His thought process was linear and logical. His thought content showed no suicidal or homicidal ideation. He had acknowledged auditory hallucinations and appeared to be preoccupied with excess rumination noted. He did appear to be responding to internal stimuli. Attention and concentration were limited. His recent and remote memory appeared worse today. His insight is limited. His judgment was poor today. His impulse control appeared guarded. He was alert and oriented x3. Vitals/I&O/Wt Last Vital Signs Temp 97.7 F 01/14/24 06:00 Pulse 83 01/14/24 06:00 Resp 16 01/14/24 06:00 BP 108/68 01/14/24 06:00 Pulse Ox 98 01/14/24 06:00 O2 Del Method Room Air 01/14/24 06:00 Data NPU 01/04/24 11:11 01/04/24 11:11 A&P Assessment and plan (1) Schizophrenia: Plan 23-year-old male admitted with a past history of schizophrenia or bipolar disorder currently on no medications and presenting with severe psychosis including thought blocking and thought broadcasting. 1. Continue current medication. Increased Abilify to 20 mg p.o. daily. Be mindful for EPS. 2. Continue every 15 minute checks for safety. 3. Encourage individual, group and milieu therapy. 4. Encourage sober living treatment after discharge at the highest level care to which he is willing to commit. Involuntary Hold Information 2 96 Hour Hold: 96 Hour Involuntary Admission: Yes 96 Hour Hold Ending Date: 01/10/24 96 Hour Hold Ending Time: 10:45 Attestations NPU 2 Medical Necessity Statement*: Inpatient hospitalization is medically necessary and deemed to ?be ?the clinically appropriate intervention ?at this time.? We will monitor/initiate medications and make changes as indicated.? The patient?s likely length of stay 2-4 days. Coding Level of Care Code Acute Code for Chg Fwd Diagnoses Schizophrenia F20.9
[2024-01-14] MEDS: magnesium hydroxide 30 mL UDC PO (12:23)
--- NOTE | 2024-01-14 12:29 | PC.NURSE ---
PT REQUESTED PRN MEDICATION TO ASSIST IN BOWEL MOVEMENT HE FEELS LIKE HE IS STRUGGLING. PT STATES HE HAD SMALL HARD BM TODAY. PT RECEIVED PRN MILK OF MAG. PT CURRENT NEEDS ARE MET AT THIS TIME.
[2024-01-14 14:00] VITALS: BP 111/73; PULSE 106; RESP 18; TEMP 36.9; O2SAT 97
[2024-01-14] MEDS: OLANZapine 5 mg ODT PO (14:26)
[2024-01-14 19:28] VITALS: BP 112/70; PULSE 122; RESP 18; TEMP 37.1; O2SAT 98
[2024-01-14] MEDS: sennosides-docusate Tablet 1 TAB PO (21:24)
[2024-01-14] MEDS: ARIPiprazole 10 mg Tablet 20 MG PO (21:25)
[2024-01-14] MEDS: hyDROXYzine 25 mg Capsule 50 MG PO (21:25)
[2024-01-14] MEDS: trazodone 50 mg Tablet PO (21:25)
[2024-01-15 06:00] VITALS: BP 102/67; PULSE 98; RESP 18; TEMP 36.8; O2SAT 97; BMI 19.0
[2024-01-15] MEDS: benztropine 1 mg Tablet PO ×2 (09:36→17:12)
[2024-01-15 14:00] VITALS: BP 111/78; PULSE 125; RESP 18; TEMP 37.2; O2SAT 95
--- NOTE | 2024-01-15 18:06 | P.NPUPN_ITS ---
Subjective NPU 2 Subjective: Patient presented today reporting that he is doing okay. We discussed the risks, benefits and alternatives of considering the long-acting injectable. We discussed the Abilify Maintena and Abilify Asimtufii. We discussed how that could help overall. He denied any side effects to his medication. Mental Status Exam 2 MSE Comments: This is an underweight versus cachectic thin white male in hospital scrubs with limited grooming and eye contact. No abnormal movements except for psychomotor retardation.. There was no evidence of any abnormal involuntary motor movements tics or tremors appreciated. His speech was limited and decreased rate and volume. Mood described as okay, affect slightly subdued. His thought process was linear and logical. His thought content showed no suicidal or homicidal ideation. He had acknowledged auditory hallucinations and appeared to be preoccupied with excess rumination noted. He did appear to be responding to internal stimuli. Attention and concentration were limited. His recent and remote memory appeared worse today. His insight is limited. His judgment was poor today. His impulse control appeared guarded. He was alert and oriented x3. Vitals/I&O/Wt Last Vital Signs Temp 98.4 F 01/15/24 21:55 Pulse 98 01/16/24 06:00 Resp 18 01/16/24 06:00 BP 107/75 01/16/24 06:00 Pulse Ox 98 01/16/24 06:00 O2 Del Method Room Air 01/16/24 06:00 Weight last 48 hrs Weight 61.745 kg Data NPU 01/04/24 11:11 01/04/24 11:11 A&P Assessment and plan (1) Schizophrenia: Plan 23-year-old male admitted with a past history of schizophrenia or bipolar disorder currently on no medications and presenting with severe psychosis including thought blocking and thought broadcasting. 1. Continue current medication. Increased Abilify to 20 mg p.o.daily. Be mindful for EPS. 2. Continue every 15 minute checks for safety. 3. Encourage individual, group and milieu therapy. 4. Encourage sober living treatment after discharge at the highest level care to which he is willing to commit. Involuntary Hold Information 2 96 Hour Hold: 96 Hour Involuntary Admission: Yes 96 Hour Hold Ending Date: 01/10/24 96 Hour Hold Ending Time: 10:45 Attestations NPU 2 Medical Necessity Statement*: Inpatient hospitalization is medically necessary and deemed to ?be ?the clinically appropriate intervention ?at this time.? We will monitor/initiate medications and make changes as indicated.? The patient?s likely length of stay 2-4 days. Coding Level of Care Code Acute Code for Chg Fwd Diagnoses Schizophrenia F20.9
[2024-01-15] MEDS: hyDROXYzine 25 mg Capsule 50 MG PO (20:13)
[2024-01-15] MEDS: sennosides-docusate Tablet 1 TAB PO (20:13)
[2024-01-15] MEDS: ARIPiprazole 10 mg Tablet 20 MG PO (20:13)
[2024-01-15 21:55] VITALS: BP 108/74; PULSE 110; RESP 18; TEMP 36.9; O2SAT 97
[2024-01-16 06:00] VITALS: BP 107/75; PULSE 98; RESP 18; O2SAT 98
[2024-01-16] MEDS: ARIPiprazole Maintena 400 MG IM (09:31)
[2024-01-16] MEDS: magnesium hydroxide 30 mL UDC PO (09:31)
[2024-01-16] MEDS: benztropine 1 mg Tablet PO ×2 (09:31→17:29)
--- NOTE | 2024-01-16 09:44 | PC.NURSE ---
IN DAY ROOM SITTING WATCHING TV. FLAT AFFECT AND DEPRESSED MOOD IS NOTED. PT IS MORE INTERACTIVE BUT AT TIMES SLOW TO RESPOND TO QUESTIONS. RATES ANXIETY AND DEPRESSION 01/18. OFFERED MEDICATIONS PT STATES I TOOK SOMETHING ALREADY PT IS REQUESTING STAFF GIVE HIM ANOTHER SUPPOSITORY FOR CONSTIPATION EVEN THO HE REPORTS A BM ON 01/15/24. THIS RN EDUCATED PT THAT WE COULD GIVE HIM SOMETHING BY MOUTH IF HE IS STILL HAVING SOME CONSTIPATION. PT STATES HE WOULD RATHER HAVE THE SUPPOSITORY. PT CONTINUES TO FIXATE ON BOWELS AND WANTS NURSING STAFF TO GIVE SUPPOSITORY. MED NURSE NOTIFIED TO GIVE SOMETHING BY MOUTH. PT STATES GOAL FOR THE DAY IS TO MAKE SOMEONE HAPPY. PT REPORTS HE IS HAVING SUICIDAL THOUGHTS THIS MORNING BUT STATES NO PLAN ONLY THOUGHTS DENIES HI AND AVH AT THIS TIME. REPORTS HE SLEPT GOOD DENIES PAIN AT THIS TIME. PT IS DUE FOR HIS ABILIFY INJECTION TODAY. EDUCATION WAS PROVIDED. ALL QUESTIONS ANSWERED AND SUPPORT WAS VOICEE.
[2024-01-16 14:00] VITALS: BP 126/83; PULSE 114; RESP 17; TEMP 36.6; O2SAT 98
--- NOTE | 2024-01-16 18:44 | P.NPUPN_ITS ---
Subjective NPU 2 Subjective: Patient presented today reporting that he is doing better. He reports that he got the injection and feels that there were no issues with that thus far. We discussed the 13 additional days of oral cross coverage that he would need but that then he could do the 1 month or 2-month injection moving forward. Staff reports of greater affect of reactivity which was also noted on direct observation. He denied any side effects to the medication. Mental Status Exam 2 MSE Comments: This is an underweight versus cachectic thin white male in hospital scrubs with limited grooming and eye contact. No abnormal movements except for psychomotor retardation.. There was no evidence of any abnormal involuntary motor movements tics or tremors appreciated. His speech was limited and decreased rate and volume. Mood described as okay, affect slightly subdued. His thought process was linear and logical. His thought content showed no suicidal or homicidal ideation. He had acknowledged auditory hallucinations and appeared to be preoccupied with excess rumination noted. He did appear to be responding to internal stimuli. Attention and concentration were limited. His recent and remote memory appeared worse today. His insight is limited. His judgment was poor today. His impulse control appeared improving. He was alert and oriented x3. Vitals/I&O/Wt Last Vital Signs Temp 97.9 F 01/16/24 14:00 Pulse 114 H 01/16/24 14:00 Resp 17 01/16/24 14:00 BP 126/83 01/16/24 14:00 Pulse Ox 98 01/16/24 14:00 O2 Del Method Room Air 01/16/24 06:00 Weight last 48 hrs Weight 61.745 kg Data NPU 01/04/24 11:11 01/04/24 11:11 A&P Assessment and plan (1) Schizophrenia: Plan 23-year-old male admitted with a past history of schizophrenia or bipolar disorder currently on no medications and presenting with severe psychosis including thought blocking and thought broadcasting. 1. Continue current medication. Increased Abilify to 20 mg p.o.daily. Be mindful for EPS. Abilify Maintena 400 mg IM initiated. Left 13 additional days of oral cross cover. 2. Continue every 15 minute checks for safety. 3. Encourage individual, group and milieu therapy. 4. Encourage sober living treatment after discharge at the highest level care to which he is willing to commit. Involuntary Hold Information 2 96 Hour Hold: 96 Hour Involuntary Admission: Yes 96 Hour Hold Ending Date: 01/10/24 96 Hour Hold Ending Time: 10:45 Attestations NPU 2 Medical Necessity Statement*: Inpatient hospitalization is medically necessary and deemed to ?be ?the clinically appropriate intervention ?at this time.? We will monitor/initiate medications and make changes as indicated.? The patient?s likely length of stay 2-4 days. Coding Level of Care Code Acute Code for Chg Fwd Diagnoses Schizophrenia F20.9
[2024-01-16 20:06] VITALS: BP 108/74; PULSE 96; RESP 16; TEMP 36.8; O2SAT 98
[2024-01-16] MEDS: ARIPiprazole 10 mg Tablet 20 MG PO (20:45)
[2024-01-16] MEDS: hyDROXYzine 25 mg Capsule 50 MG PO (20:45)
[2024-01-16] MEDS: sennosides-docusate Tablet 1 TAB PO (20:46)
[2024-01-17 06:00] VITALS: BP 120/80; PULSE 90; RESP 15; TEMP 36.6; O2SAT 99
[2024-01-17] MEDS: benztropine 1 mg Tablet PO ×2 (09:20→17:27)
[2024-01-17 14:00] VITALS: BP 107/74; PULSE 96; RESP 16; TEMP 37.1; O2SAT 98
--- NOTE | 2024-01-17 15:54 | P.NPUPN_ITS ---
Subjective NPU 2 Subjective: Patient presents today reporting that he is feeling okay. Staff report him appearing a little more subdued today but otherwise seeming to be more pleasant. This is also noted on direct observation. He began discussing feeling guilty about things that he has done but he could not really explain what he meant by that. He agreed we could sit down tomorrow and he could try to explain what he feels he needs to be guilty about. He denies any challenges with the medication and continues the cross cover denying any side effects. Mental Status Exam 2 MSE Comments: This is an underweight versus cachectic thin white male in hospital scrubs with limited grooming and eye contact. No abnormal movements except for psychomotor retardation.. There was no evidence of any abnormal involuntary motor movements tics or tremors appreciated. His speech was limited and decreased rate and volume. Mood described as okay, affect slightly subdued. His thought process was linear and logical. His thought content showed no suicidal or homicidal ideation. He had acknowledged auditory hallucinations and appeared to be preoccupied with excess rumination noted. He did appear to be responding to internal stimuli. Attention and concentration were limited. His recent and remote memory appeared worse today. His insight is limited. His judgment was poor today. His impulse control appeared improving. He was alert and oriented x3. Vitals/I&O/Wt Last Vital Signs Temp 98.8 F 01/17/24 14:00 Pulse 96 01/17/24 14:00 Resp 16 01/17/24 14:00 BP 107/74 01/17/24 14:00 Pulse Ox 98 01/17/24 14:00 O2 Del Method Room Air 01/17/24 06:00 Data NPU 01/04/24 11:11 01/04/24 11:11 A&P Assessment and plan (1) Schizophrenia: Plan 23-year-old male admitted with a past history of schizophrenia or bipolar disorder currently on no medications and presenting with severe psychosis including thought blocking and thought broadcasting. 1. Continue current medication. Increased Abilify to 20 mg p.o.daily. Be mindful for EPS. Abilify Maintena 400 mg IM initiated. Left 12 additional days of oral cross cover. 2. Continue every 15 minute checks for safety. 3. Encourage individual, group and milieu therapy. 4. Encourage sober living treatment after discharge at the highest level care to which he is willing to commit. Involuntary Hold Information 2 96 Hour Hold: 96 Hour Involuntary Admission: Yes 96 Hour Hold Ending Date: 01/10/24 96 Hour Hold Ending Time: 10:45 Attestations NPU 2 Medical Necessity Statement*: Inpatient hospitalization is medically necessary and deemed to ?be ?the clinically appropriate intervention ?at this time.? We will monitor/initiate medications and make changes as indicated.? The patient?s likely length of stay 1-3 days. Coding Level of Care Code Acute Code for Chg Fwd Diagnoses Schizophrenia F20.9
[2024-01-17 19:22] VITALS: BP 137/91; PULSE 94; RESP 16; TEMP 36.5; O2SAT 100
[2024-01-17] MEDS: ARIPiprazole 10 mg Tablet 20 MG PO (20:35)
[2024-01-17] MEDS: sennosides-docusate Tablet 1 TAB PO (20:35)
[2024-01-17] MEDS: trazodone 50 mg Tablet PO (20:36)
[2024-01-18 06:00] VITALS: BP 125/89; PULSE 96; RESP 18; TEMP 36.6; O2SAT 98
[2024-01-18] MEDS: benztropine 1 mg Tablet PO ×2 (09:22→17:41)
[2024-01-18 14:00] VITALS: BP 103/71; PULSE 89; RESP 16; TEMP 36.9; O2SAT 99
--- NOTE | 2024-01-18 16:03 | P.NPUPN_ITS ---
Subjective NPU 2 Subjective: Patient presented today reporting that he is doing okay. Significant change in plans occurred as his significant other came to understand some issues from his past that led her to not want him to return and so he is now focused on how he can get back to [place]. He is unsure of whether his truck is in the condition to make a 12-hour trip plus he is short on findings and says that it took him at least $200 to get out here and will take at least that much to get back. He denies any side effects of the medication and we discussed the likelihood of discharge in the next 48 hours. Mental Status Exam 2 MSE Comments: This is an underweight versus cachectic thin white male in hospital scrubs with limited grooming and eye contact. No abnormal movements except for psychomotor retardation.. There was no evidence of any abnormal involuntary motor movements tics or tremors appreciated. His speech was limited and decreased rate and volume. Mood described as okay, affect slightly subdued. His thought process was linear and logical. His thought content showed no suicidal or homicidal ideation. He had acknowledged auditory hallucinations and appeared to be preoccupied with excess rumination noted. He did appear to be responding to internal stimuli. Attention and concentration were limited. His recent and remote memory appeared worse today. His insight is limited. His judgment was poor today. His impulse control appeared improving. He was alert and oriented x3. Vitals/I&O/Wt Last Vital Signs Temp 98.4 F 01/18/24 14:00 Pulse 89 01/18/24 14:00 Resp 16 01/18/24 14:00 BP 103/71 01/18/24 14:00 Pulse Ox 99 01/18/24 14:00 O2 Del Method Room Air 01/18/24 14:00 Data NPU 01/04/24 11:11 01/04/24 11:11 A&P Assessment and plan (1) Schizophrenia: Plan 23-year-old male admitted with a past history of schizophrenia or bipolar disorder currently on no medications and presenting with severe psychosis including thought blocking and thought broadcasting. 1. Continue current medication. Increased Abilify to 20 mg p.o.daily. Be mindful for EPS. Abilify Maintena 400 mg IM initiated. Left 11 additional days of oral cross cover. 2. Continue every 15 minute checks for safety. 3. Encourage individual, group and milieu therapy. 4. Encourage sober living treatment after discharge at the highest level care to which he is willing to commit. Involuntary Hold Information 2 96 Hour Hold: 96 Hour Involuntary Admission: Yes 96 Hour Hold Ending Date: 01/10/24 96 Hour Hold Ending Time: 10:45 Attestations NPU 2 Medical Necessity Statement*: Inpatient hospitalization is medically necessary and deemed to ?be ?the clinically appropriate intervention ?at this time.? We will monitor/initiate medications and make changes as indicated.? The patient?s likely length of stay 1-3 days. Coding Level of Care Code Acute Code for Chg Fwd Diagnoses Schizophrenia F20.9
[2024-01-18 19:46] VITALS: BP 118/75; PULSE 108; RESP 16; TEMP 36.6; O2SAT 98
[2024-01-18] MEDS: trazodone 50 mg Tablet PO (21:07)
[2024-01-18] MEDS: ARIPiprazole 10 mg Tablet 20 MG PO (21:07)
[2024-01-18] MEDS: sennosides-docusate Tablet 1 TAB PO (21:07)
[2024-01-19 06:00] VITALS: BP 114/71; PULSE 105; RESP 15; TEMP 36.6; O2SAT 99
[2024-01-19] MEDS: benztropine 1 mg Tablet PO ×2 (09:03→18:09)
[2024-01-19] MEDS: hyDROXYzine 25 mg Capsule 50 MG PO (09:36)
--- NOTE | 2024-01-19 09:37 | PC.NURSE ---
patient visibly anxious. administered vistaril 50mg PO. Patient is unable to verbalize cause of anxiety. Patient tremulous with delayed responses to questions. Patient has flat affect.
[2024-01-19 14:00] VITALS: BP 128/79; PULSE 98; RESP 14; TEMP 37.2; O2SAT 100
--- NOTE | 2024-01-19 15:00 | P.NPUPN_ITS ---
Subjective NPU 2 Subjective: Patient presents today reporting that he is doing okay. He continues to be somewhat unclear of things per staff reports and direct observation. There are significant logistical concerns related to him being discharged and going home in this truck including issues with the truck itself, finances as well as concerns about whether he is actually in a state where driving [place]country alone would be appropriate. He is starting to come to supervisor weaving with the fact that the relationship that he entered is likely dissolved and he is trying to come up with a plan be in his current somewhat confused state. He denies any side effects of the medications. Mental Status Exam 2 MSE Comments: This is an underweight versus cachectic thin white male in hospital scrubs with limited grooming and eye contact. No abnormal movements except for psychomotor retardation.. There was no evidence of any abnormal involuntary motor movements tics or tremors appreciated. His speech was limited and decreased rate and volume. Mood described as okay, affect slightly subdued. His thought process was linear and logical. His thought content showed no suicidal or homicidal ideation. He had acknowledged auditory hallucinations and appeared to be preoccupied with excess rumination noted. He did appear to be responding to internal stimuli. Attention and concentration were limited. His recent and remote memory appeared worse today. His insight is limited. His judgment was poor today. His impulse control appeared improving. He was alert and oriented x3. Vitals/I&O/Wt Last Vital Signs Temp 97.8 F 01/19/24 06:00 Pulse 105 H 01/19/24 06:00 Resp 15 01/19/24 06:00 BP 114/71 01/19/24 06:00 Pulse Ox 99 01/19/24 06:00 O2 Del Method Room Air 01/19/24 06:00 Data NPU 01/04/24 11:11 01/04/24 11:11 A&P Assessment and plan (1) Schizophrenia: Plan 23-year-old male admitted with a past history of schizophrenia or bipolar disorder currently on no medications and presenting with severe psychosis including thought blocking and thought broadcasting. 1. Continue current medication. Increased Abilify to 20 mg p.o.daily. Be mindful for EPS. Abilify Maintena 400 mg IM initiated. Left 10 additional days of oral cross cover. 2. Continue every 15 minute checks for safety. 3. Encourage individual, group and milieu therapy. 4. Encourage sober living treatment after discharge at the highest level care to which he is willing to commit. 5. Discussions about discharge underway however significant limitations exist in the possible plan of him returning back to [place]. Supposedly the vehicle is in disrepair and may not be the best option for making the trip. The cost of the repairs exceed monies he has available and he is even limited in the monies he may have for gas. He also continues to be somewhat confused and is unclear whether him driving home without a copilot is a reasonable idea. Involuntary Hold Information 2 96 Hour Hold: 96 Hour Involuntary Admission: Yes 96 Hour Hold Ending Date: 01/10/24 96 Hour Hold Ending Time: 10:45 Attestations NPU 2 Medical Necessity Statement*: Inpatient hospitalization is medically necessary and deemed to ?be ?the clinically appropriate intervention ?at this time.? We will monitor/initiate medications and make changes as indicated.? The patient?s likely length of stay 1-3 days. Coding Level of Care Code Acute Code for Chg Fwd Diagnoses Schizophrenia F20.9
[2024-01-19 20:16] VITALS: BP 126/85; PULSE 90; RESP 16; TEMP 36.7; O2SAT 99
[2024-01-19] MEDS: sennosides-docusate Tablet 1 TAB PO (21:00)
[2024-01-19] MEDS: ARIPiprazole 10 mg Tablet 20 MG PO (21:00)
[2024-01-20 06:00] VITALS: BP 110/75; PULSE 96; RESP 16; TEMP 36.8; O2SAT 99
[2024-01-20] MEDS: benztropine 1 mg Tablet PO ×2 (09:41→18:01)
[2024-01-20 14:00] VITALS: BP 117/77; PULSE 105; RESP 16; TEMP 36.6; O2SAT 100
--- NOTE | 2024-01-20 18:43 | P.NPUPN_ITS ---
Subjective NPU 2 Subjective: Patient presented today reporting that he is doing okay. 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 He is working with the social work team for possible correction situation here in town while things improving are feasible for him to possibly leave the area. He denied any side effects of the medication. Mental Status Exam 2 MSE Comments: This is an underweight versus cachectic thin white male in hospital scrubs with limited grooming and eye contact. No abnormal movements except for psychomotor retardation.. There was no evidence of any abnormal involuntary motor movements tics or tremors appreciated. His speech was limited and decreased rate and volume. Mood described as okay, affect slightly subdued. His thought process was linear and logical. His thought content showed no suicidal or homicidal ideation. He had acknowledged auditory hallucinations and appeared to be preoccupied with excess rumination noted. He did appear to be responding to internal stimuli. Attention and concentration were limited. His recent and remote memory appeared worse today. His insight is limited. His judgment was poor today. His impulse control appeared improving. He was alert and oriented x3. Vitals/I&O/Wt Last Vital Signs Temp 98 F 01/20/24 14:00 Pulse 105 H 01/20/24 14:00 Resp 16 01/20/24 14:00 BP 117/77 01/20/24 14:00 Pulse Ox 100 01/20/24 14:00 O2 Del Method Room Air 01/20/24 14:00 Data NPU 01/04/24 11:11 01/04/24 11:11 A&P Assessment and plan (1) Schizophrenia: Plan 23-year-old male admitted with a past history of schizophrenia or bipolar disorder currently on no medications and presenting with severe psychosis including thought blocking and thought broadcasting. 1. Continue current medication. Increased Abilify to 20 mg p.o.daily. Be mindful for EPS. Abilify Maintena 400 mg IM initiated. Left 10 additional days of oral cross cover. 2. Continue every 15 minute checks for safety. 3. Encourage individual, group and milieu therapy. 4. Encourage sober living treatment after discharge at the highest level care to which he is willing to commit. 5. Discussions about discharge underway however significant limitations exist in the possible plan of him returning back to [place]. Supposedly the vehicle is in disrepair and may not be the best option for making the trip. The cost of the repairs exceed monies he has available and he is even limited in the monies he may have for gas. He also continues to be somewhat confused and is unclear whether him driving home without a copilot is a reasonable idea. Involuntary Hold Information 2 96 Hour Hold: 96 Hour Involuntary Admission: Yes 96 Hour Hold Ending Date: 01/10/24 96 Hour Hold Ending Time: 10:45 Attestations NPU 2 Medical Necessity Statement*: Inpatient hospitalization is medically necessary and deemed to ?be ?the clinically appropriate intervention ?at this time.? We will monitor/initiate medications and make changes as indicated.? The patient?s likely length of stay 3-4 days. Coding Level of Care Code Acute Code for Chg Fwd Diagnoses Schizophrenia F20.9
[2024-01-20] MEDS: ARIPiprazole 10 mg Tablet 20 MG PO (20:19)
[2024-01-20] MEDS: sennosides-docusate Tablet 1 TAB PO (20:19)
[2024-01-20 20:47] VITALS: BP 99/67; PULSE 82; RESP 17; TEMP 36.6; O2SAT 98
[2024-01-21 06:00] VITALS: BP 95/60; PULSE 95; RESP 16; TEMP 36.6; O2SAT 98
--- NOTE | 2024-01-21 08:30 | P.NPUPN_ITS ---
Subjective NPU 2 Subjective: Patient presented today that he is doing okay. He is in agreement that we need to have a better plan for his discharge given his current limitations but he continues to feel like he is getting better daily. We discussed the possibility that he might need to get a ride home and have the vehicle be a secondary plan versus a primary plan. He denied any side effects of medication. Mental Status Exam 2 MSE Comments: This is an underweight versus cachectic thin white male in hospital scrubs with limited grooming and eye contact. No abnormal movements except for psychomotor retardation.. There was no evidence of any abnormal involuntary motor movements tics or tremors appreciated. His speech was limited and decreased rate and volume. Mood described as okay, affect slightly subdued. His thought process was linear and logical. His thought content showed no suicidal or homicidal ideation. He had acknowledged auditory hallucinations and appeared to be preoccupied with excess rumination noted. He did appear to be responding to internal stimuli. Attention and concentration were limited. His recent and remote memory appeared worse today. His insight is limited. His judgment was poor today. His impulse control appeared improving. He was alert and oriented x3. Vitals/I&O/Wt Last Vital Signs Temp 97.9 F 01/21/24 06:00 Pulse 95 01/21/24 06:00 Resp 16 01/21/24 06:00 BP 95/60 01/21/24 06:00 Pulse Ox 98 01/21/24 06:00 O2 Del Method Room Air 01/21/24 06:00 01/21/24 01/22/24 01/22/24 22:59 06:59 14:59 Intake Total 240 / 240 Balance 240 / 240 Weight last 48 hrs Weight 60.237 kg Data NPU 01/04/24 11:11 01/04/24 11:11 A&P Assessment and plan (1) Schizophrenia: Plan 23-year-old male admitted with a past history of schizophrenia or bipolar disorder currently on no medications and presenting with severe psychosis including thought blocking and thought broadcasting. 1. Continue current medication. Increased Abilify to 20 mg p.o.daily. Be mindful for EPS. Abilify Maintena 400 mg IM initiated. Left 10 additional days of oral cross cover. 2. Continue every 15 minute checks for safety. 3. Encourage individual, group and milieu therapy. 4. Encourage sober living treatment after discharge at the highest level care to which he is willing to commit. 5. Discussions about discharge underway however significant limitations exist in the possible plan of him returning back to [place]. Supposedly the vehicle is in disrepair and may not be the best option for making the trip. The cost of the repairs exceed monies he has available and he is even limited in the monies he may have for gas. He also continues to be somewhat confused and is unclear whether him driving home without a copilot is a reasonable idea. Involuntary Hold Information 2 96 Hour Hold: 96 Hour Involuntary Admission: Yes 96 Hour Hold Ending Date: 01/10/24 96 Hour Hold Ending Time: 10:45 Attestations NPU 2 Medical Necessity Statement*: Inpatient hospitalization is medically necessary and deemed to ?be ?the clinically appropriate intervention ?at this time.? We will monitor/initiate medications and make changes as indicated.? The patient?s likely length of stay 3-4 days. Coding Level of Care Code Acute Code for Chg Fwd Diagnoses Schizophrenia F20.9
[2024-01-21] MEDS: benztropine 1 mg Tablet PO ×2 (09:29→18:31)
[2024-01-21 14:00] VITALS: BP 99/66; PULSE 85; RESP 16; TEMP 36.7; O2SAT 99
[2024-01-21] MEDS: ARIPiprazole 10 mg Tablet 20 MG PO (20:05)
[2024-01-21] MEDS: sennosides-docusate Tablet 1 TAB PO (20:05)
[2024-01-21 20:15] VITALS: BP 101/73; PULSE 89; RESP 18; TEMP 37.1; O2SAT 97
[2024-01-22 06:00] VITALS: BP 106/71; PULSE 89; RESP 18; TEMP 36.8; O2SAT 97
[2024-01-22] MEDS: benztropine 1 mg Tablet PO ×2 (08:39→17:21)
--- NOTE | 2024-01-22 12:33 | P.NPUPN_ITS ---
Subjective NPU 2 Subjective: Patient presented today reporting that he is doing okay. Staff report that he appears brighter which is noted on direct observation. We continue to discuss discharge planning and the possibility that instead of focusing everything about how he is going to get his car back and get money to make sure that his car is in appropriate repair to make the drive that maybe we should talk to his family about him going home and having a place that the truck can be parked and maybe has a stable he could return and figure out what to do with the truck instead of staying here without support and hoping for stability to get the truck back. We discussed working with the social work team on this possibility tomorrow. Mental Status Exam 2 MSE Comments: This is an underweight versus cachectic thin white male in hospital scrubs with limited grooming and eye contact. No abnormal movements except for psychomotor retardation.. There was no evidence of any abnormal involuntary motor movements tics or tremors appreciated. His speech was limited and decreased rate and volume. Mood described as okay, affect slightly subdued. His thought process was linear and logical. His thought content showed no suicidal or homicidal ideation. He had acknowledged auditory hallucinations and appeared to be preoccupied with excess rumination noted. He did appear to be responding to internal stimuli. Attention and concentration were limited. His recent and remote memory appeared worse today. His insight is limited. His judgment was poor today. His impulse control appeared improving. He was alert and oriented x3. Vitals/I&O/Wt Last Vital Signs Temp 98.2 F 01/22/24 06:00 Pulse 89 01/22/24 06:00 Resp 18 01/22/24 06:00 BP 106/71 01/22/24 06:00 Pulse Ox 97 01/22/24 06:00 O2 Del Method Room Air 01/21/24 06:00 01/21/24 01/22/24 01/22/24 22:59 06:59 14:59 Intake Total 240 / 240 Balance 240 / 240 Weight last 48 hrs Weight 60.237 kg Data NPU 01/04/24 11:11 01/04/24 11:11 A&P Assessment and plan (1) Schizophrenia: Plan 23-year-old male admitted with a past history of schizophrenia or bipolar disorder currently on no medications and presenting with severe psychosis including thought blocking and thought broadcasting. 1. Continue current medication. Increased Abilify to 20 mg p.o.daily. Be mindful for EPS. Abilify Maintena 400 mg IM initiated. Left 5 additional days of oral cross cover. 2. Continue every 15 minute checks for safety. 3. Encourage individual, group and milieu therapy. 4. Encourage sober living treatment after discharge at the highest level care to which he is willing to commit. 5. Discussions about discharge underway however significant limitations exist in the possible plan of him returning back to [place]. Supposedly the vehicle is in disrepair and may not be the best option for making the trip. The cost of the repairs exceed monies he has available and he is even limited in the monies he may have for gas. He also continues to be somewhat confused and is unclear whether him driving home without a copilot is a reasonable idea. Involuntary Hold Information 2 96 Hour Hold: 96 Hour Involuntary Admission: Yes 96 Hour Hold Ending Date: 01/10/24 96 Hour Hold Ending Time: 10:45 Attestations NPU 2 Medical Necessity Statement*: Inpatient hospitalization is medically necessary and deemed to ?be ?the clinically appropriate intervention ?at this time.? We will monitor/initiate medications and make changes as indicated.? The patient?s likely length of stay 2-3 days. Coding Level of Care Code Acute Code for Chg Fwd Diagnoses Schizophrenia F20.9
[2024-01-22 14:00] VITALS: BP 109/77; PULSE 75; RESP 16; TEMP 36.6; O2SAT 100
[2024-01-22] MEDS: ARIPiprazole 10 mg Tablet 20 MG PO (20:33)
[2024-01-22] MEDS: sennosides-docusate Tablet 1 TAB PO (20:33)
[2024-01-22 21:13] VITALS: BP 124/87; PULSE 101; RESP 18; TEMP 37.1; O2SAT 99
[2024-01-23 06:00] VITALS: BP 113/77; PULSE 97; RESP 17; TEMP 36.8; O2SAT 98
[2024-01-23] MEDS: docusate sodium 100 mg Capsule PO (11:49)
[2024-01-23] MEDS: benztropine 1 mg Tablet PO ×2 (11:49→18:07)
[2024-01-23] MEDS: diphenhydrAMINE 50 mg Capsule PO (12:20)
[2024-01-23 14:00] VITALS: BP 120/78; PULSE 94; RESP 16; TEMP 36.6; O2SAT 100
--- NOTE | 2024-01-23 15:06 | P.NPUPN_ITS ---
Subjective NPU 2 Subjective: Patient presented today reporting that he is doing okay. We continue to discuss the idea of him considering [place] versus staying around here. He has been working with the social work team and with some family members about what possibilities exist for him in [place]. Also there have been discussions that instead of ever coming back for the truck that he sells the truck here and uses the money to get back home. He denied any side effects to the medication and we continue to discuss the plan for discontinuing the oral medication this week. Mental Status Exam 2 MSE Comments: This is an underweight versus cachectic thin white male in hospital scrubs with limited grooming and eye contact. No abnormal movements except for psychomotor retardation.. There was no evidence of any abnormal involuntary motor movements tics or tremors appreciated. His speech was limited and decreased rate and volume. Mood described as okay, affect slightly subdued. His thought process was linear and logical. His thought content showed no suicidal or homicidal ideation. He had acknowledged auditory hallucinations and appeared to be preoccupied with excess rumination noted. He did appear to be responding to internal stimuli. Attention and concentration were limited. His recent and remote memory appeared worse today. His insight is limited. His judgment was poor today. His impulse control appeared improving. He was alert and oriented x3. Vitals/I&O/Wt Last Vital Signs Temp 98.2 F 01/23/24 06:00 Pulse 97 01/23/24 06:00 Resp 17 01/23/24 06:00 BP 113/77 01/23/24 06:00 Pulse Ox 98 01/23/24 06:00 O2 Del Method Room Air 01/21/24 06:00 Weight last 48 hrs Weight 60.237 kg Data NPU 01/04/24 11:11 01/04/24 11:11 A&P Assessment and plan (1) Schizophrenia: Plan 23-year-old male admitted with a past history of schizophrenia or bipolar disorder currently on no medications and presenting with severe psychosis including thought blocking and thought broadcasting. 1. Continue current medication. Increased Abilify to 20 mg p.o.daily. Be mindful for EPS. Abilify Maintena 400 mg IM initiated. Left 4 additional days of oral cross cover. 2. Continue every 15 minute checks for safety. 3. Encourage individual, group and milieu therapy. 4. Encourage sober living treatment after discharge at the highest level care to which he is willing to commit. 5. Discussions about discharge underway however significant limitations exist in the possible plan of him returning back to [place]. Supposedly the vehicle is in disrepair and may not be the best option for making the trip. The cost of the repairs exceed monies he has available and he is even limited in the monies he may have for gas. He also continues to be somewhat confused and is unclear whether him driving home without a copilot is a reasonable idea. Involuntary Hold Information 2 96 Hour Hold: 96 Hour Involuntary Admission: Yes 96 Hour Hold Ending Date: 01/10/24 96 Hour Hold Ending Time: 10:45 Attestations NPU 2 Medical Necessity Statement*: Inpatient hospitalization is medically necessary and deemed to ?be ?the clinically appropriate intervention ?at this time.? We will monitor/initiate medications and make changes as indicated.? The patient?s likely length of stay 1-3 days. Coding Level of Care Code Acute Code for Chg Fwd Diagnoses Schizophrenia F20.9
[2024-01-23] MEDS: sennosides-docusate Tablet 1 TAB PO (20:35)
[2024-01-23] MEDS: ARIPiprazole 10 mg Tablet 20 MG PO (20:35)
[2024-01-23 21:03] VITALS: BP 108/76; PULSE 94; RESP 16; TEMP 36.8; O2SAT 98
[2024-01-24 06:00] VITALS: BP 107/70; PULSE 66; RESP 15; TEMP 36.7; O2SAT 98
[2024-01-24] MEDS: benztropine 1 mg Tablet PO ×2 (08:01→17:27)
[2024-01-24] MEDS: polyethylene glycol 3350 Pkt 17 gm PO (08:01)
--- NOTE | 2024-01-24 08:03 | P.NPUPN_ITS ---
Subjective NPU 2 Subjective: Patient presented today reporting that he is doing okay. He is working with the social work team on the possibility of his aunt being able to help out with getting a body here. We continue to assist him because he has a court case on and we are trying to see if we can come to some resolution on that as well so that he can leave town Free and clear and not worry about having to come back either for any legal issues or even his truck possibly as he is considering selling that. But he also reports he is not clear if he has a tidal or not which were trying to determine. He denied any side effects to the medication. Mental Status Exam 2 MSE Comments: This is an underweight versus cachectic thin white male in hospital scrubs with limited grooming and eye contact. No abnormal movements except for psychomotor retardation.. There was no evidence of any abnormal involuntary motor movements tics or tremors appreciated. His speech was limited and decreased rate and volume. Mood described as okay, affect slightly subdued. His thought process was linear and logical. His thought content showed no suicidal or homicidal ideation. He had acknowledged auditory hallucinations and appeared to be preoccupied with excess rumination noted. He did appear to be responding to internal stimuli. Attention and concentration were limited. His recent and remote memory appeared worse today. His insight is limited. His judgment was poor today. His impulse control appeared improving. He was alert and oriented x3. Vitals/I&O/Wt Last Vital Signs Temp 98.0 F 01/24/24 06:00 Pulse 66 01/24/24 06:00 Resp 15 01/24/24 06:00 BP 107/70 01/24/24 06:00 Pulse Ox 98 01/24/24 06:00 O2 Del Method Room Air 01/23/24 14:00 Data NPU 01/04/24 11:11 01/04/24 11:11 A&P Assessment and plan (1) Schizophrenia: Plan 23-year-old male admitted with a past history of schizophrenia or bipolar disorder currently on no medications and presenting with severe psychosis including thought blocking and thought broadcasting. 1. Continue current medication. Increased Abilify to 20 mg p.o.daily. Be mindful for EPS. Abilify Maintena 400 mg IM initiated. Left 3 additional days of oral cross cover. 2. Continue every 15 minute checks for safety. 3. Encourage individual, group and milieu therapy. 4. Encourage sober living treatment after discharge at the highest level care to which he is willing to commit. 5. Discussions about discharge underway however significant limitations exist in the possible plan of him returning back to [place]. Supposedly the vehicle is in disrepair and may not be the best option for making the trip. The cost of the repairs exceed monies he has available and he is even limited in the monies he may have for gas. He also continues to be somewhat confused and is unclear whether him driving home without a copilot is a reasonable idea. Involuntary Hold Information 2 96 Hour Hold: 96 Hour Involuntary Admission: Yes 96 Hour Hold Ending Date: 01/10/24 96 Hour Hold Ending Time: 10:45 Attestations NPU 2 Medical Necessity Statement*: Inpatient hospitalization is medically necessary and deemed to ?be ?the clinically appropriate intervention ?at this time.? We will monitor/initiate medications and make changes as indicated.? The patient?s likely length of stay 1-3 days. Coding Level of Care Code Acute Code for Chg Fwd Diagnoses Schizophrenia F20.9
[2024-01-24 14:00] VITALS: BP 117/77; PULSE 88; RESP 16; TEMP 36.9; O2SAT 98
[2024-01-24] MEDS: ARIPiprazole 10 mg Tablet 20 MG PO (19:25)
[2024-01-24] MEDS: sennosides-docusate Tablet 1 TAB PO (19:27)
[2024-01-24 19:29] VITALS: BP 97/67; PULSE 93; RESP 18; TEMP 36.9; O2SAT 97
[2024-01-25 06:00] VITALS: BP 101/71; PULSE 86; RESP 18; TEMP 36.6; O2SAT 99
[2024-01-25] MEDS: benztropine 1 mg Tablet PO ×2 (08:44→17:12)
[2024-01-25] MEDS: polyethylene glycol 3350 Pkt 17 gm PO (08:44)
--- NOTE | 2024-01-25 16:40 | W.PM.NPUDCS ---
Diagnoses at Discharge Discharge Diagnosis (1) Schizophrenia: Status: Acute Reason for Visit Reason for Visit: mhe Brief History: History of Present Illness Dangelo Moore is a 23 year old male who presented to the emergency department with complaints of being severely depressed. It was uncertain as to how the patient had come to arrive in the emergency department. He was admitted to the neuropsychiatric unit for further evaluation and treatment. On interview, the patient reports that he has been feeling more depressed. He had endorsed having some increase in suicidal thoughts but was not specific. He had answered questions extremely slowly with significant halting in his speech often lasting several seconds. He had reported that he had been previously treated for bipolar schizophrenia and stated that his previous medications had not helped him. He reports that he has not been on medication for several months. He had reported that he was initially from [place] and had come here less than a year ago in order to follow a girl. He denied any substance use. He had endorsed having increased concern that he would somehow be harmed and was reporting that he had concerns that others around him could read his mind and that his thoughts were being broadcasted. He reported having periods of intense depression but was unable to elaborate. He had reported having problems with concentration. The patient had reported no change in appetite. He had reported no clear problems with any medical issues. He had reported having some problems with managing his worry. He had indicated that he was having some difficulties with trusting others. He stated that he had previously been psychiatrically hospitalized and stated that he did not like hospitals and that he did not like taking medications. The patient had reported that he had felt that he was in some kind of trouble because he was lying to others but he did not elaborate regarding this matter. Inpatient psychiatric history: Patient had reported 2 previous inpatient hospitalizations in the last few years 1 in [facility] and another in [facility] in [place] both for psychiatric issues. Previous records had revealed that the patient had been treated with Abilify on an inpatient basis as well. Outpatient psychiatric history: None Substance abuse history: He had minimized any use of drugs or alcohol. Allergies: Penicillin Medical history: None reported Surgical history: None reported Current medications: None reported Legal history: He had reported some history of having his fingerprints tested but reported no clear legal problems. Family psychiatric history: He had reported a history of bipolar and schizophrenia and the maternal side of the family. Social history: Patient reports that he was born in [facility]. He reported that he had graduated from high school. He had denied any history of trauma during his childhood and reports that he grew up residing with his mother and stepfather. He had reported no siblings. He had reported having to previous relationships and reported having a recent break-up with a girl in [place] as well as a previous relationship with another woman in [place] who he states chose to stay in [place] when the patient moved to [place] for less than obvious reasons. He denied any history of sexual physical or emotional abuse. Involuntary Hold Information 96 Hour Hold: 96 Hour Involuntary Admission: Yes 96 Hour Hold Ending Date: 01/10/24 96 Hour Hold Ending Time: 10:45 Mental Status Exam MSE Comments: This is an underweight versus cachectic thin white male in hospital scrubs with limited grooming and eye contact. No abnormal movements except for psychomotor retardation.. There was no evidence of any abnormal involuntary motor movements tics or tremors appreciated. His speech was limited and decreased rate and volume. Mood described as okay, affect slightly subdued. His thought process was linear and logical. His thought content showed no suicidal or homicidal ideation. He had acknowledged auditory hallucinations and appeared to be preoccupied with excess rumination noted. He did appear to be responding to internal stimuli. Attention and concentration were limited. His recent and remote memory appeared worse today. His insight is limited. His judgment was poor today. His impulse control appeared improving. He was alert and oriented x3. Discharge Data Studies Completed and Pending: Laboratory Results WBC 11.26 10^3/uL (3. 29-11.43) 01/04/24 11:11 RBC 5.59 10^6/uL (3.8 5-5.65) 01/04/24 11:11 Hgb 16.20 g/dL (11.27 -16.99) 01/04/24 11:11 Hct 47.8 % (37-53) 01/04/24 11:11 MCV 85.5 fl (82-101) 01/04/24 11:11 MCH 29.0 pg (27-33) 01/04/24 11:11 MCHC 33.9 g/dL (30-55) 01/04/24 11:11 RDW 13.1 % (12.1-15.1 ) 01/04/24 11:11 Plt Count 284 10^3/cmm (157 -399) 01/04/24 11:11 MPV 10.5 fL (7.4-10.4 ) H 01/04/24 11:11 Neut % (Auto) 78.5 % 01/04/24 11:11 Lymph % (Auto) 14.6 % 01/04/24 11:11 Saunders % (Auto) 5.6 % 01/04/24 11:11 Eos % (Auto) 0.1 % 01/04/24 11:11 Baso % (Auto) 0.8 % 01/04/24 11:11 Neut # (Auto) 8.85 10^3/uL (1.8 -7.7) H 01/04/24 11:11 Lymph # (Auto) 1.6 10^3/uL (0.8- 4.8) 01/04/24 11:11 Saunders # (Auto) 0.6 10^3/uL (0.2- 0.9) 01/04/24 11:11 Eos # (Auto) 0.0 10^3/uL (0.0- 0.8) 01/04/24 11:11 Baso # (Auto) 0.1 10^3/uL (0.0- 0.1) 01/04/24 11:11 Nucleated RBC % (a uto) 0 % 01/04/24 11:11 Nucleated RBCs # 0.0 /100WBC 01/04/24 11:11 Sodium 143 mmol/L (136-1 45) 01/04/24 11:11 Potassium 3.6 mmol/L (3.5-5 .1) 01/04/24 11:11 Chloride 99 mmol/L (98-107 ) 01/04/24 11:11 Carbon Dioxide 25 mmol/L (22-29) 01/04/24 11:11 Anion Gap 22.6 (5-19) H 01/04/24 11:11 BUN 20 mg/dL (6-20) 01/04/24 11:11 Creatinine 0.8 mg/dL (0.7-1. 2) 01/04/24 11:11 GFR Calculation 119.8 mL/min (90- 130) 01/04/24 11:11 Glucose 92 mg/dL (65-115) 01/04/24 11:11 Calculated Osmolal ity 298 mOsm/kg (285- 295) H 01/04/24 11:11 Calcium 9.7 mg/dL (8.5-10 .5) 01/04/24 11:11 Total Bilirubin 0.7 mg/dL (0.15-1 .2) 01/04/24 11:11 AST 16 U/L (0-40) 01/04/24 11:11 ALT 13 U/L (0-41) 01/04/24 11:11 Alkaline Phosphata se 80 U/L (40-130) 01/04/24 11:11 Total Protein 8.4 g/dL (6.6-8.7 ) 01/04/24 11:11 Albumin 5.0 g/dL (3.5-5.2 ) 01/04/24 11:11 Globulin 3.4 g/dL (1.3-4.6 ) 01/04/24 11:11 Salicylates < 0.3 mg/dL (3-10 ) L 01/04/24 11:11 Urine Opiates Scre en Negative ng/mL (N egative) 01/04/24 10:38 Acetaminophen < 5.0 ug/mL (10-3 0) L 01/04/24 11:11 Ur Barbiturates Sc reen Negative ng/mL (N egative) 01/04/24 10:38 Ur Phencyclidine S crn Negative ng/mL (N egative) 01/04/24 10:38 Ur Amphetamines Sc reen Negative ng/mL (N egative) 01/04/24 10:38 U Benzodiazepines Scrn Negative ng/mL (N egative) 01/04/24 10:38 Urine Cocaine Scre en Negative ng/mL (N egative) 01/04/24 10:38 U Marijuana (THC) Screen Negative ng/mL (N egative) 01/04/24 10:38 Ethyl Alcohol < 10 mg/dL (0-10) 01/04/24 11:11 Vitals: Last Vital Signs Temp 97.8 F 01/25/24 06:00 Pulse 86 01/25/24 06:00 Resp 18 01/25/24 06:00 BP 101/71 01/25/24 06:00 Pulse Ox 99 01/25/24 06:00 O2 Del Method Room Air 01/25/24 06:00 Discharge Plan Discharge Patient Disposition: Home Condition: Stable Prescriptions: New aripiprazole 20 mg tablet 20 mg PO BEDTIME 4 Days Qty: 4 0RF polyethylene glycol 3350 17 gram Powder In Packet 17 g PO DAILY 30 Days Qty: 510 1RF sennosides-docusate sodium [Stool Softener-Laxative] 8.6-50 mg Tablet 1 tab PO BEDTIME 30 Days Qty: 30 1RF Abilify Maintena 400 mg suspension,extended rel recon 400 mg IM Q28D Qty: 1 2RF Rx Instructions: Next injection 02/13/2024 then as directed. Discharge Orders: Discharge Order (Routine); Ordered 01/25/24 Ordered By: Francisco Singer [facility] - 01/25/24 6:00 pm [facility] [Outside] - 01/31/24 12:25 pm (Initial appointment with Cristy on 01/31/24 @12:30 pm ) Discharge Diet: Regular Discharge Activity: Resume usual activity Patient Instructions: Opioid Safety Discharge Attestations NPU Time Spent in Discharge Care*: less than 30 min Specific Discharge Activities: Specific discharge activities: educating patient, discussing with telehealth case manager/social workers/dc planners, documenting/other paperwork and evaluating patient/reviewing data Coding Level of Care Code Acute Code for Chg Fwd Diagnoses Schizophrenia F20.9
[2024-01-25 16:42] VITALS: BP 101/71; PULSE 86; RESP 18; TEMP 36.6; O2SAT 99
[2024-01-25] MEDS: docusate sodium 100 mg Capsule PO (17:13)
== END 2024-01-25 18:13 | disposition home or self-care (01) | DRG 885 ==
LOC: ER 11:29 → NP 12:08
PROVIDERS: Admitting Provider Psychiatry & Neurology Psychiatry; Emergency Provider Emergency Medicine; Visit Provider Psychiatry & Neurology Psychiatry
DX: F20.9 Schizophrenia, unspecified (principal); R45.851 Suicidal ideations; E46 Unspecified protein-calorie malnutrition; Z68.1 Body mass index [BMI] 19.9 or less, adult
CPT/HCPCS: 36415; 80053; 80306; 80307; 85025; 96372; 97150; 97165; 99285; J1200; J1630; J2060; Q0163

== ENCOUNTER → 2024-07-05 12:29 | Outpatient (BNVA) | payer MEDICAID, SELFPAY | PROVIDERS: Visit Provider Family Medicine | DX: R52 Pain, unspecified (principal) | CPT/HCPCS: 87400 ==

== ENCOUNTER 2025-02-12 23:56 | Inpatient (IN) | payer SELFPAY ==
[2025-02-13] VITALS (19 sets, daily range): BP systolic 115–146; BP diastolic 70–97; PULSE 71–104; RESP 16–24; TEMP 36.9; O2SAT 94–100
--- NOTE | 2025-02-13 00:07 | ED_ITS ---
HPI - General Adult 2 General: Chief complaint: Psychiatric Symptoms Stated complaint: mhe Time Seen by Provider: 02/13/25 00:01 History of Present Illness: 24yo M w/pmhx of anxiety, depression, h/ o acute psychosis (prescribed APAP resolved at that time) with a chief complaint of mental health evaluation. On my exam, patient is alert, is able to answer questions appropriately. He is not suicidal, homicidal and denies any auditory or visual hallucinations. Per report, people that he lives with states he has not been acting himself, has stayed awake for the past 4 days and has been using nitrous oxide. Patient denies any other drug use aside from marijuana. He states that he called the police himself for wellness check although he states his intent was to check on another person. He states he would like to work for the police department. Patient states that he currently does have a job and is supposed to work tomorrow. He does not wish to be evaluated and does not wish to stay for psychiatric evaluation. He has otherwise not been ill, he denies fever, upper respiratory symptoms, shortness of breath, chest pain, abdominal pain, nausea, vomiting. He has not injured himself. Per roomates, he cannot stay at their house any more and is out there. Patient admits he has been noncompliant with his medications. Related Data Previous Rx's ?Medication ?Instructions ?Recorded aripiprazole 400 mg intramuscular 400 mg IM Q28D #1 ea 01/25/24 suspension,extended release (Abilify Maintena) clindamycin HCl 150 mg capsule 150 mg PO TID #30 caps 07/05/24 (Cleocin HCl) Allergies Allergy/AdvReac Type Severity Reaction Status Date / Time Penicillins Allergy LINDAJanina-Melissall Verified 02/13/25 00:19 Lip/Tongue/Throat [facility] 2 PFS: Social History Smoking and tobacco/nicotine status: former use of tobacco/nicotine Physical Exam 2 Narrative: EXAM NARRATIVE: Vital signs were reviewed. Patient is alert and oriented. Patient is breathing comfortably, no increased WOB or accessory muscle use. SpO2 is above 95% on RA. Patient has clear lungs b/l, no rhonchi, wheezing or crackles. No hypotension or tachycardia. Abdomen is soft, nondistended and nontender. Patient is moving all extremities, no deformity or gross injury. No lower extremity edema or asymmetry. He denies SI, HI, hallucinations. Course 2 Vital Signs: Vital signs: Vital Signs Temperature 98.4 F 02/13/25 03:41 Pulse Rate 84 02/13/25 05:30 Respiratory Rate 16 02/13/25 05:30 Blood Pressure 115/71 02/13/25 05:30 Pulse Oximetry 95 02/13/25 05:30 Oxygen Delivery Me thod Room Air 02/13/25 05:30 MDM - General Adult Medical Decision Making 24yo M brought in by police for cc/of mental health evaluation. Differential diagnosis includes, but is not limited to, acute psychosis, manic episode, drug- induced psychosis, intoxication with alcohol or illicit substance, underlying illness such as endocrine disorder, underlying infection, other. On exam he is hemodynamically stable though he is mildly tachycardic. Patient is alert and is able to answer questions relatively appropriately. He denies HI, SI or hallucinations. He is amenable after discussion to let me obtain screening lab work. He was evaluated CBC, CMP, TSH, toxicology screen, UA and drug screen. Lab work does not demonstrate any medical emergency. Patient was admitted to neuropsychiatric unit by Dr. Singer. Lab Data 02/13/25 03:20 02/13/25 03:20 Laboratory Results WBC 6.42 10^3/uL (3.29-11.43) 02/13/25 03:20 RBC 4.69 10^6/uL (3.85-5.65) 02/13/25 03:20 Hgb 14.00 g/dL (11.27-16.99) 02/13/25 03:20 Hct 40.1 % (37-53) 02/13/25 03:20 MCV 85.5 fl (82-101) 02/13/25 03:20 MCH 29.9 pg (27-33) 02/13/25 03:20 MCHC 34.9 g/dL (30-55) 02/13/25 03:20 RDW 12.6 % (12.1-15.1) 02/13/25 03:20 Plt Count 255 10^3/cmm (157-399) 02/13/25 03:20 MPV 9.9 fL (7.4-10.4) 02/13/25 03:20 Neut % (Auto) 55.5 % 02/13/25 03:20 Lymph % (Auto) 33.3 % 02/13/25 03:20 George % (Auto) 9.0 % 02/13/25 03:20 Eos % (Auto) 0.9 % 02/13/25 03:20 Baso % (Auto) 1.1 % 02/13/25 03:20 Neut # (Auto) 3.56 10^3/uL (1.8-7.7) 02/13/25 03:20 Lymph # (Auto) 2.1 10^3/uL (0.8-4.8) 02/13/25 03:20 George # (Auto) 0.6 10^3/uL (0.2-0.9) 02/13/25 03:20 Eos # (Auto) 0.1 10^3/uL (0.0-0.8) 02/13/25 03:20 Baso # (Auto) 0.1 10^3/uL (0.0-0.1) 02/13/25 03:20 Nucleated RBC % (auto) 0 % 02/13/25 03:20 Nucleated RBCs # 0.0 /100WBC 02/13/25 03:20 Sodium 134 mmol/L (136-145) L 02/13/25 03:20 Potassium 3.5 mmol/L (3.5-5.1) 02/13/25 03:20 Chloride 98 mmol/L (98-107) 02/13/25 03:20 Carbon Dioxide 23 mmol/L (22-29) 02/13/25 03:20 Anion Gap 16.5 (5-19) 02/13/25 03:20 BUN 8 mg/dL (6-20) 02/13/25 03:20 Creatinine 0.7 mg/dL (0.7-1.2) 02/13/25 03:20 GFR Calculation 138.6 mL/min (90-130) H 02/13/25 03:20 Glucose 103 mg/dL (65-115) 02/13/25 03:20 Calculated Osmolality 277 mOsm/kg (285-295) L 02/13/25 03:20 Calcium 9.3 mg/dL (8.5-10.5) 02/13/25 03:20 Total Bilirubin 0.5 mg/dL (0.15-1.2) 02/13/25 03:20 AST 20 U/L (0-40) 02/13/25 03:20 ALT 11 U/L (0-41) 02/13/25 03:20 Alkaline Phosphatase 77 U/L (40-130) 02/13/25 03:20 Total Protein 7.1 g/dL (6.6-8.7) 02/13/25 03:20 Albumin 4.6 g/dL (3.5-5.2) 02/13/25 03:20 Globulin 2.5 g/dL (1.3-4.6) 02/13/25 03:20 TSH 2.20 uIU/mL (0.27-4.20) 02/13/25 03:20 Urine Color Yellow (Yellow) 02/13/25 00:24 Urine Appearance Clear (CLEAR) 02/13/25 00:24 Urine pH 6.0 (5-7) 02/13/25 00:24 Ur Specific [place] 1.010 (1.005-1.030) 02/13/25 00:24 Urine Protein Negative (Negative) 02/13/25 00:24 Urine Glucose (UA) Negative (Normal) 02/13/25 00:24 Urine Ketones Negative (Negative) 02/13/25 00:24 Urine Blood Negative (Negative) 02/13/25 00:24 Urine Nitrate Negative (Negative) 02/13/25 00:24 Urine Bilirubin Negative (Negative) 02/13/25 00:24 Urine Urobilinogen 0.2 mg/dL (Negative) 02/13/25 00:24 Ur Leukocyte Esterase Negative (Negative) 02/13/25 00:24 Urine RBC 0-2 /hpf (0-2) 02/13/25 00:24 Urine WBC 0-5 /hpf (0-5) 02/13/25 00:24 Ur Squamous Epith Cells 0-5 /hpf (0-5) 02/13/25 00:24 Amorphous Sediment Not Reportable 02/13/25 00:24 Urine Bacteria None seen /hpf (NONE) 02/13/25 00:24 Hyaline Casts 0-4 /lpf H 02/13/25 00:24 Salicylates < 0.3 mg/dL (3-10) L 02/13/25 03:20 Urine Opiates Screen Negative ng/mL (Negative) 02/13/25 00:24 Acetaminophen < 5.0 ug/mL (10-30) L 02/13/25 03:20 Ur Barbiturates Screen Negative ng/mL (Negative) 02/13/25 00:24 Ur Phencyclidine Scrn Negative ng/mL (Negative) 02/13/25 00:24 Ur Amphetamines Screen Negative ng/mL (Negative) 02/13/25 00:24 U Benzodiazepines Scrn Negative ng/mL (Negative) 02/13/25 00:24 Urine Cocaine Screen Negative ng/mL (Negative) 02/13/25 00:24 U Marijuana (THC) Screen Positive ng/mL (Negative) H 02/13/25 00:24 Ethyl Alcohol < 10 mg/dL (0-10) 02/13/25 03:20 No radiology studies performed this visit Discharge Plan Discharge Patient Disposition: Admitted As Inpatient Clinical Impression: Acute psychosis, Tamiko Condition: Stable Coding Level of Care Code ED [facility] Monitor for Shanika Carter
[2025-02-13 01:55] LABS: Glucose Urine UA Negative (Normal); Nitrate Urine Negative (Negative); Specific Gravity, Urine 1.010 (1.005-1.030)
[2025-02-13 01:57] LABS: Add Urine Microscopic? YES
[2025-02-13 02:02] LABS: PCP Screen Urine Negative (Negative)
--- NOTE | 2025-02-13 02:53 | PC.NURSE ---
96 HH Pt served with copy of 96 HH right by this RN and security. Pt animated and unable to focus on conversation. Pt continuously interrupted this RN and was up pacing in the room. Pt making bizarre, rapid fire comments Is this a good thing or a bad thing? Cause your making this sound like a bad thing and I only want good things
[2025-02-13 03:30] LABS: Hematocrit 40.1 % (37-53); Hemoglobin 14.00 g/dL (11.27-16.99); Mean Corpuscular HGB Conc 34.9 g/dL (30-55); Mean Corpuscular Hemoglobin 29.9 pg (27-33); Mean Corpuscular Volume 85.5 fl (82-101); Nucleated Red Blood Cells % 0 %; Platelet Count 255 10^3/cmm (157-399); Red Blood Count 4.69 10^6/uL (3.85-5.65); White Blood Count 6.42 10^3/uL (3.29-11.43)
--- NOTE | 2025-02-13 03:52 | PC.NURSE ---
Pt pacing in pt room. Pt yelling. This nurse to bedside to administer Geodon as ordered by provider. Pt asked this nurse Did I wake up and ask you to have babies? when entering the pt room. Pt cooperative during medication administration.
[2025-02-13 03:58] LABS: Acetaminophen < 5.0 ug/mL (10-30); Alanine Aminotransferase 11 U/L (0-41); Albumin Level 4.6 g/dL (3.5-5.2); Alcohol Level < 10 mg/dL (0-10); Alkaline Phosphatase 77 U/L (40-130); Anion Gap 16.5 (5-19); Aspartate Amino Transferase 20 U/L (0-40); Blood Urea Nitrogen 8 mg/dL (6-20); Calcium 9.3 mg/dL (8.5-10.5); Carbon Dioxide 23 mmol/L (22-29); Chloride 98 mmol/L (98-107); Globulin 2.5 g/dL (1.3-4.6); Glucose 103 mg/dL (65-115); Osmolality Calculated 277 mOsm/kg (285-295); Potassium 3.5 mmol/L (3.5-5.1); Salicylate < 0.3 mg/dL (3-10); Sodium 134 mmol/L (136-145); Thyroid Stimulating Hormone 2.20 uIU/mL (0.27-4.20); Total Protein 7.1 g/dL (6.6-8.7)
--- NOTE | 2025-02-13 07:02 | PC.NURSE ---
THIS NURSE ASSUMED CARE @ [id number].
--- NOTE | 2025-02-14 06:31 | PC.NURSE ---
vs not collected resp 16 RN notified
--- NOTE | 2025-02-14 07:16 | W.PM.NPUH&PS ---
Providers/Chief Complaint Admitting Physician: Francisco Singer MD Chief Complaint: mhe HPI NPU History of Present Illness Dangelo Moore is a 24 year old male who presented to the emergency department with the following report: Chief complaint: Psychiatric Symptoms Stated complaint: mhe Time Seen by Provider: 02/13/25 00:01 History of Present Illness: 24yo M w/pmhx of anxiety, depression, h/o acute psychosis (prescribed APAP resolved at that time) with a chief complaint of mental health evaluation. On my exam, patient is alert, is able to answer questions appropriately. He is not suicidal, homicidal and denies any auditory or visual hallucinations. Per report, people that he lives with states he has not been acting himself, has stayed awake for the past 4 days and has been using nitrous oxide. Patient denies any other drug use aside from marijuana. He states that he called the police himself for wellness check although he states his intent was to check on another person. He states he would like to work for the police department. Patient states that he currently does have a job and is supposed to work tomorrow. He does not wish to be evaluated and does not wish to stay for psychiatric evaluation. He has otherwise not been ill, he denies fever, upper respiratory symptoms, shortness of breath, chest pain, abdominal pain, nausea, vomiting. He has not injured himself. Per roomates, he cannot stay at their house any more and is out there. Patient admits he has been noncompliant with his medications. He was admitted to the neuropsychiatric unit for definitive treatment of those issues. He is known to [facility] psychiatry through inpatient services and some crisis services. He presented with a UDS positive for cannabis only and his BAL was unremarkable. His major interaction with [facility] was throughout past psychiatric inpatient stay which ended in January 2024. An excerpt of the discharge summary is included below for context and the fact that he is a poor historian, and is psychotic and there have been no known substantive changes. He presents as a diminished and incapable historian reporting that he is here because he did what he was told to do. Some of his responses felt like parroting as he responded on those utilizing words or phraseology of this card writer hand. He denied knowledge of why he was asked to come here. He reports that things are fine and he had no issues. Though he did endorse not taking his medication for some time active use of marijuana but reporting that he has laid off of any alcohol. We discussed the risks, benefits and alternatives of initiating the medication and getting him back on medications to hope to address his odd behavior and he understood and agreed to proceed as is documented in this note. Other areas of questioning were fruitless though he did say that he lived with these 2 females and that things have been going fairly well. However the reports we have been receiving from collateral informants thus far have suggested quite the opposite. Per his 01/25/2024 [facility] inpatient psychiatric discharge summary: Discharge Diagnosis (1) Schizophrenia: Status: Acute Reason for Visit Reason for Visit: mhe Brief History: History of Present Illness Dangelo Moore is a 23 year old male who presented to the emergency department with complaints of being severely depressed. It was uncertain as to how the patient had come to arrive in the emergency department. He was admitted to the neuropsychiatric unit for further evaluation and treatment. On interview, the patient reports that he has been feeling more depressed. He had endorsed having some increase in suicidal thoughts but was not specific. He had answered questions extremely slowly with significant halting in his speech often lasting several seconds. He had reported that he had been previously treated for bipolar schizophrenia and stated that his previous medications had not helped him. He reports that he has not been on medication for several months. He had reported that he was initially from [place] and had come here less than a year ago in order to follow a girl. He denied any substance use. He had endorsed having increased concern that he would somehow be harmed and was reporting that he had concerns that others around him could read his mind and that his thoughts were being broadcasted. He reported having periods of intense depression but was unable to elaborate. He had reported having problems with concentration. The patient had reported no change in appetite. He had reported no clear problems with any medical issues. He had reported having some problems with managing his worry. He had indicated that he was having some difficulties with trusting others. He stated that he had previously been psychiatrically hospitalized and stated that he did not like hospitals and that he did not like taking medications. The patient had reported that he had felt that he was in some kind of trouble because he was lying to others but he did not elaborate regarding this matter. Inpatient psychiatric history: Patient had reported 2 previous inpatient hospitalizations in the last few years 1 in [facility] and another in hospital in [place] both for psychiatric issues. Previous records had revealed that the patient had been treated with Abilify on an inpatient basis as well. Outpatient psychiatric history: None Substance abuse history: He had minimized any use of drugs or alcohol. Allergies: Penicillin Medical history: None reported Surgical history: None reported Current medications: None reported Legal history: He had reported some history of having his fingerprints tested but reported no clear legal problems. Family psychiatric history: He had reported a history of bipolar and schizophrenia and the maternal side of the family. Social history: Patient reports that he was born in [facility]. He reported that he had graduated from high school. He had denied any history of trauma during his childhood and reports that he grew up residing with his mother and stepfather. He had reported no siblings. He had reported having to previous relationships and reported having a recent break-up with a girl in [place] as well as a previous relationship with another woman in [place] who he states chose to stay in [place] when the patient moved to [place] for less than obvious reasons. He denied any history of sexual physical or emotional abuse. Hospital Course He slowly acclimated to the individual, group and milieu therapies provided. He presented reporting some issaddiction however his UDS was negative and his BAL was unremarkable. He presented with psychosis and was eventually started on Invega but did not respond well to that and was switched over to Abilify which was titrated to 20 mg p.o. daily. He was then put on the Abilify Maintena injections 400 mg IM prior to discharge and given oral coadministration as advised for 14 days. He had a positive response. He had some challenges from the standpoint of finances and housing. He worked with the social work team on those issues. He was on a 96-hour hold and we observe him against the backdrop of the issues related to that. He worked with the social work team to get appropriate outpatient appointments and follow ups and was able to get sober living and residential treatment and more to life. He had significant improvement during his stay. He was able to contract for safety outside of the hospital prior to discharge. During the hospitalization, he had routine laboratory studies which were within normal limits except for a few outliers. Additionally she had a general medical evaluation which was also within normal limits and revealed no new acute processes. At the time of discharge, he denied psychosis or lethality. His mood and anxiety was well managed. He endorse a plan to avoid all drugs of abuse and follow-up with the treatment team recommendations after discharge. He was evaluated and deemed to be absent credible lethality, and had achieved the maximum benefit from inpatient hospitalization. So he was discharged. Meds NPU Home Medications ?Medication ?Instructions ?Recorded ?Confirmed ?Last Taken ?Type No Known Home Medications 02/13/25 02/13/25 Unknown History Allergies Allergy/AdvReac Type Severity Reaction Status Date / Time Penicillins Allergy EVERETT-Aishwarya Verified 02/13/25 00:19 Lip/Tongue/Throat PFSH NPU PFSH: Social History Smoking and tobacco/nicotine status: former use of tobacco/nicotine Mental Status Exam MSE Comments: This is an underweight versus cachectic thin white male in hospital scrubs with limited grooming and eye contact. No abnormal movements except for psychomotor agitation. There was no evidence of any abnormal involuntary motor movements tics or tremors appreciated. Somewhat cooperative with exam in moderate distress. His speech was increased rate and normal volume. Mood described as fine, affect hyper and irritable. His thought process was linear but at times disorganized. His thought content showed no suicidal or homicidal ideation. There is some grandiose and delusions noted but no delusions reported. He had acknowledged auditory hallucinations and appeared to be preoccupied with excess rumination noted. He did appear to be responding to internal stimuli. Attention and concentration were limited and his recent and remote memory were limited but none were formally tested. He was alert and oriented times person and place. His insight, judgment and impulse control are all impaired. Vitals/I&O/Wt Last Vital Signs Temp 98.4 F 02/13/25 20:28 Pulse 99 02/13/25 20:28 Resp 18 02/13/25 20:28 BP 146/93 02/13/25 20:28 Pulse Ox 98 02/13/25 20:28 O2 Del Method Room Air 02/13/25 20:28 Weight last 48 hrs Weight 70.307 kg Data NPU 02/13/25 03:20 02/13/25 03:20 A&P Assessment and plan 1. Schizophrenia: 2. Acute psychosis: 3. Tamiko: Plan: This is a 24-year-old male admitted with a past history of schizophrenia versus bipolar disorder who presents on a 96-hour hold off of medication with severe psychosis including thought blocking and thought broadcasting was like previous hospitalization with positive UDS for cannabis. 1. Restart medication but plan to return to long-acting injectable. Will restart Abilify 2 mg p.o. daily. 2. Continue every 15 minute checks for safety. 3. Encourage individual, group and milieu therapy. 4. Encourage sober living treatment after discharge at the highest level care to which he is willing to commit. 5. Obtain collateral information. 6. Observe against the backdrop of the 96-hour hold. PDMP PDMP Reviewed: Not Reviewed Involuntary Hold Information Hold Status: Legal Status: 96 Hour Hold Date/Time Hold Expires: 02/19/25 @ 02:15 96 Hour Hold: 96 Hour Involuntary Admission: Yes Attestations NPU Medical Necessity Statement*: Inpatient hospitalization is medically necessary and the clinically appropriate intervention at this time.? We will monitor/initiate medications and make changes as indicated.? He will be in the hospital over 2 midnights. The patient?s likely length of stay 5-7 days. Coding Level of Care Code Acute Code for g Fwd Diagnoses Schizophrenia F20.9 Acute psychosis F23 Tamiko F30.9
[2025-02-14] MEDS: diphenhydrAMINE 50 mg/mL SDV 1mL IM (09:14)
[2025-02-14] MEDS: LORazepam 2 mg/mL INJ 1 mL IM (09:14)
[2025-02-14] MEDS: haloperidol inj 5 mg/mL INJ 1 mL IM (09:14)
--- NOTE | 2025-02-14 12:32 | PC.NURSE ---
pt did not eat lunch, pt resting in bed with eyes closed. pt received med earlier in this morning and is resting comfortable in bed
[2025-02-14 13:40] VITALS: RESP 16
--- NOTE | 2025-02-14 13:40 | PC.NURSE ---
pt in bed resting with eyes closed, vitals not done nurse aware
[2025-02-14 20:41] VITALS: BP 134/83; PULSE 104; RESP 19; O2SAT 98
--- NOTE | 2025-02-15 12:07 | W.PM.NPUPNS ---
Subjective NPU Subjective: Patient presented today reporting that he is doing all right. He had been very resistant to restarting medications that he had not been taking this time and it seemed to assist him in improving in his last hospitalization. Patient was fairly intrusive into other peoples conversations and personal space per staff reports and direct observation. We discussed the risks, benefits and alternatives of restarting the Abilify which would be something that could help him get out of here more quickly and he understood and agreed to proceed as is documented in this note. Mental Status Exam MSE Comments: This is an underweight versus cachectic thin white male in hospital scrubs with limited grooming and eye contact. No abnormal movements except for psychomotor agitation. There was no evidence of any abnormal involuntary motor movements tics or tremors appreciated. Somewhat cooperative with exam in moderate distress. His speech was increased rate and normal volume. Mood described as fine, affect hyper and irritable. His thought process was linear but at times disorganized. His thought content showed no suicidal or homicidal ideation. There is some grandiose and delusions noted but no delusions reported. He had acknowledged auditory hallucinations and appeared to be preoccupied with excess rumination noted. He did appear to be responding to internal stimuli. Attention and concentration were limited and his recent and remote memory were limited but none were formally tested. He was alert and oriented times person and place. His insight, judgment and impulse control are all impaired. Vitals/I&O/Wt Last Vital Signs Temp 98.4 F 02/13/25 20:28 Pulse 104 H 02/14/25 20:41 Resp 19 H 02/14/25 20:41 BP 134/83 02/14/25 20:41 Pulse Ox 98 02/14/25 20:41 O2 Del Method Room Air 02/14/25 20:41 Data NPU 02/13/25 03:20 02/13/25 03:20 A&P Assessment and plan 1. Schizophrenia: 2. Acute psychosis: 3. Tamiko: Plan: This is a 24-year-old male admitted with a past history of schizophrenia versus bipolar disorder who presents on a 96-hour hold off of medication with severe psychosis including thought blocking and thought broadcasting was like previous hospitalization with positive UDS for cannabis. 1. Restart medication but plan to return to long-acting injectable. Will restart Abilify 10 mg p.o. daily. 2. Continue every 15 minute checks for safety. 3. Encourage individual, group and milieu therapy. 4. Encourage sober living treatment after discharge at the highest level care to which he is willing to commit. 5. Obtain collateral information. 6. Observe against the backdrop of the 96-hour hold. PDMP PDMP Reviewed: Not Reviewed Involuntary Hold Information Hold Status: Legal Status: 96 Hour Hold Date/Time Hold Expires: 02/19/25 @ 02:15 96 Hour Hold: 96 Hour Involuntary Admission: Yes Attestations NPU Medical Necessity Statement*: Inpatient hospitalization is medically necessary and the clinically appropriate intervention at this time.? We will monitor/initiate medications and make changes as indicated. The patient?s likely length of stay 5-7 days. Coding Level of Care Code Acute Code for [facility] Fwd Diagnoses Schizophrenia F20.9 Acute psychosis F23 Tamiko F30.9
[2025-02-15 14:00] VITALS: BP 132/84; PULSE 105; RESP 17; TEMP 36.8; O2SAT 100
--- NOTE | 2025-02-15 18:04 | PC.NURSE ---
pt continues to go to exit doors when staff members are needing in. having to be redirected pt to get away from doors. pt states he is ready to leave just open the doors for me.
[2025-02-15 20:35] VITALS: BP 133/92; PULSE 78; RESP 19; TEMP 36.6; O2SAT 97
[2025-02-16 06:00] VITALS: BP 119/77; PULSE 99; RESP 18; TEMP 36.3; O2SAT 100
[2025-02-16 14:00] VITALS: BP 115/79; PULSE 117; RESP 16; TEMP 36.9; O2SAT 98
--- NOTE | 2025-02-16 14:42 | P.NPUPN_ITS ---
Subjective NPU 2 Subjective: Patient presented today reporting that things are going fine. He continued to be intrusive per staff reports and direct observation often introducing himself into the conversations of others even when there in their own rooms. He reports a desire to leave sooner rather than later but he knows that he needs to stay here and get his medications adjusted. We discussed the risks, benefits and alternatives of increasing his Abilify to 20 mg and likely move towards the injection and he understood and agreed to proceed as documented in this note. He denied any side effects of the medication. Mental Status Exam 2 MSE Comments: This is an underweight versus cachectic thin white male in hospital scrubs with limited grooming and eye contact. No abnormal movements except for psychomotor agitation. There was no evidence of any abnormal involuntary motor movements tics or tremors appreciated. Somewhat cooperative with exam in moderate distress. His speech was increased rate and normal volume. Mood described as fine, affect hyper and irritable. His thought process was linear but at times disorganized. His thought content showed no suicidal or homicidal ideation. There is some grandiose and delusions noted but no delusions reported. He had acknowledged auditory hallucinations and appeared to be preoccupied with excess rumination noted. He did appear to be responding to internal stimuli. Attention and concentration were limited and his recent and remote memory were limited but none were formally tested. He was alert and oriented times person and place. His insight, judgment and impulse control are all impaired. Vitals/I&O/Wt Last Vital Signs Temp 98.4 F 02/16/25 14:00 Pulse 117 H 02/16/25 14:00 Resp 16 02/16/25 14:00 BP 115/79 02/16/25 14:00 Pulse Ox 98 02/16/25 14:00 O2 Del Method Room Air 02/16/25 14:00 Data NPU 02/13/25 03:20 02/13/25 03:20 A&P Assessment and plan 1. Schizophrenia: 2. Acute psychosis: 3. Tamiko: Plan: This is a 24-year-old male admitted with a past history of schizophrenia versus bipolar disorder who presents on a 96-hour hold off of medication with severe psychosis including thought blocking and thought broadcasting was like previous hospitalization with positive UDS for cannabis. 1. Restart medication but plan to return to long-acting injectable. Will restart Abilify 10 mg p.o. daily. Increase Abilify to 20 mg p.o. daily 2. Continue every 15 minute checks for safety. 3. Encourage individual, group and milieu therapy. 4. Encourage sober living treatment after discharge at the highest level care to which he is willing to commit. 5. Obtain collateral information. 6. Observe against the backdrop of the 96-hour hold. PDMP PDMP Reviewed: Not Reviewed Involuntary Hold Information 2 Hold Status: Legal Status: 96 Hour Hold Date/Time Hold Expires: 02/19/25 @ 02:15 96 Hour Hold: 96 Hour Involuntary Admission: Yes Attestations NPU 2 Medical Necessity Statement*: Inpatient hospitalization is medically necessary and the clinically appropriate intervention at this time.? We will monitor/initiate medications and make changes as indicated. The patient?s likely length of stay 5-7 days. Coding Level of Care Code Acute Code for [facility] Fwd Diagnoses Schizophrenia F20.9 Acute psychosis F23 Tamiko F30.9
[2025-02-16 20:40] VITALS: BP 115/74; PULSE 92; RESP 16; TEMP 36.4; O2SAT 98
[2025-02-17 06:00] VITALS: BP 120/98; PULSE 89; RESP 18; TEMP 36.6; O2SAT 100; BMI 17.2
[2025-02-17 14:00] VITALS: BP 123/84; PULSE 107; RESP 16; TEMP 36.6; O2SAT 99
--- NOTE | 2025-02-17 14:15 | P.NPUPN_ITS ---
Subjective NPU 2 Subjective: Patient presented today reporting that that he is taking his medication as prescribed. He continued to be intrusive but slightly less so per staff reports and direct observation. He denied any issues with a desire increasing his Abilify to 20 mg and was mostly ambivalant about a move towards the injection. He denied any side effects of the medication. Mental Status Exam 2 MSE Comments: This is an underweight versus cachectic thin white male in hospital scrubs with limited grooming and eye contact. No abnormal movements except for psychomotor agitation. There was no evidence of any abnormal involuntary motor movements tics or tremors appreciated. Somewhat cooperative with exam in moderate distress. His speech was increased rate and normal volume. Mood described as fine, affect hyper and irritable. His thought process was linear but at times disorganized. His thought content showed no suicidal or homicidal ideation. There is some grandiose and delusions noted but no delusions reported. He had acknowledged auditory hallucinations and appeared to be preoccupied with excess rumination noted. He did appear to be responding to internal stimuli. Attention and concentration were limited and his recent and remote memory were limited but none were formally tested. He was alert and oriented times person and place. His insight, judgment and impulse control are all impaired. Vitals/I&O/Wt Last Vital Signs Temp 97.9 F 02/17/25 14:00 Pulse 107 H 02/17/25 14:00 Resp 16 02/17/25 14:00 BP 123/84 02/17/25 14:00 Pulse Ox 99 02/17/25 14:00 O2 Del Method Room Air 02/17/25 14:00 Weight last 48 hrs Weight 57.72 kg Data NPU 02/13/25 03:20 02/13/25 03:20 A&P Assessment and plan 1. Schizophrenia: 2. Acute psychosis: 3. Tamiko: Plan: This is a 24-year-old male admitted with a past history of schizophrenia versus bipolar disorder who presents on a 96-hour hold off of medication with severe psychosis including thought blocking and thought broadcasting was like previous hospitalization with positive UDS for cannabis. 1. Restart medication but plan to return to long-acting injectable. Will restart Abilify 10 mg p.o. daily. Increased Abilify to 20 mg p.o. daily 2. Continue every 15 minute checks for safety. 3. Encourage individual, group and milieu therapy. 4. Encourage sober living treatment after discharge at the highest level care to which he is willing to commit. 5. Obtain collateral information. 6. Observe against the backdrop of the 96-hour hold. PDMP PDMP Reviewed: Not Reviewed Involuntary Hold Information 2 Hold Status: Legal Status: 96 Hour Hold Date/Time Hold Expires: 02/19/25 @ 02:15 96 Hour Hold: 96 Hour Involuntary Admission: Yes Attestations NPU 2 Medical Necessity Statement*: Inpatient hospitalization is medically necessary and the clinically appropriate intervention at this time.? We will monitor/initiate medications and make changes as indicated. The patient?s likely length of stay 5-7 days. Coding Level [facility] Care Code [facility] Sch[facility] F20.9 Acute psychosis F23 Tamiko F30.9
[2025-02-17 20:25] VITALS: BP 125/92; PULSE 90; RESP 18; TEMP 36.8; O2SAT 97
[2025-02-18 06:00] VITALS: BP 135/70; PULSE 104; RESP 18; TEMP 36.5; O2SAT 100
[2025-02-18 14:00] VITALS: BP 123/90; PULSE 86; RESP 17; TEMP 36.9; O2SAT 99
--- NOTE | 2025-02-18 14:42 | P.NPUPN_ITS ---
Subjective NPU 2 Subjective: Patient presented today reporting that he is doing okay. We discussed the risks, benefits and alternatives of the Abilify injection and that we needed to make sure we got things as stable as possible as he continued to lobby for discharge. He is much more pleasant today per staff reports and direct observation and he denied any side effects of the medication. Mental Status Exam 2 MSE Comments: This is an underweight versus cachectic thin white male in hospital scrubs with limited grooming and eye contact. No abnormal movements except for psychomotor agitation. There was no evidence of any abnormal involuntary motor movements tics or tremors appreciated. Somewhat cooperative with exam in moderate distress. His speech was increased rate and normal volume. Mood described as fine, affect hyper and irritable. His thought process was linear but at times disorganized. His thought content showed no suicidal or homicidal ideation. There is some grandiose and delusions noted but no delusions reported. He had acknowledged auditory hallucinations and appeared to be preoccupied with excess rumination noted. He did appear to be responding to internal stimuli. Attention and concentration were limited and his recent and remote memory were limited but none were formally tested. He was alert and oriented times person and place. His insight, judgment and impulse control are all impaired. Vitals/I&O/Wt Last Vital Signs Temp 97.7 F 02/18/25 06:00 Pulse 104 H 02/18/25 06:00 Resp 18 02/18/25 06:00 BP 135/70 02/18/25 06:00 Pulse Ox 100 02/18/25 06:00 O2 Del Method Room Air 02/18/25 06:00 Weight last 48 hrs Weight 57.72 kg Data NPU 02/13/25 03:20 02/13/25 03:20 A&P Assessment and plan 1. Schizophrenia: 2. Acute psychosis: 3. Tamiko: Plan: This is a 24-year-old male admitted with a past history of schizophrenia versus bipolar disorder who presents on a 96-hour hold off of medication with severe psychosis including thought blocking and thought broadcasting was like previous hospitalization with positive UDS for cannabis. 1. Restart medication but plan to return to long-acting injectable. Will restart Abilify 10 mg p.o. daily. Increased Abilify to 20 mg p.o. daily. Initiate Abilify injection. 2. Continue every 15 minute checks for safety. 3. Encourage individual, group and milieu therapy. 4. Encourage sober living treatment after discharge at the highest level care to which he is willing to commit. 5. Obtain collateral information. 6. Observe against the backdrop of the 96-hour hold. PDMP PDMP Reviewed: Not Reviewed Involuntary Hold Information 2 Hold Status: Legal Status: 96 Hour Hold Date/Time Hold Expires: 02/19/25 @ 02:15 96 Hour Hold: 96 Hour Involuntary Admission: Yes Attestations NPU 2 Medical Necessity Statement*: Inpatient hospitalization is medically necessary and the clinically appropriate intervention at this time.? We will monitor/initiate medications and make changes as indicated. The patient?s likely length of stay 4-6 days. Coding [facility] F20.9 Acute psychosis F23 Tamiko F30.9
[2025-02-18 20:33] VITALS: BP 125/87; PULSE 95; RESP 18; TEMP 36.8; O2SAT 100
[2025-02-19 06:00] VITALS: BP 135/81; PULSE 84; RESP 16; O2SAT 100
--- NOTE | 2025-02-19 09:52 | P.NPUPN_ITS ---
Subjective NPU 2 Subjective: Patient presented today still having some difficulty with organization per staff reports and direct observation. He can sometimes be aimless and purposeless as he moves around but other times he is clearly showing some lack of appreciation of personal space and how others see him. Staff report him being little slightly less intrusive and showing some improvement and this was also noted on direct observation. He did get his Abilify Maintena injection and reported an openness to follow-up with even some longer-term possibly residential treatment options. He denies side effects to the medication. He reported some level of confusion about the court hearing tomorrow and we discussed the 21-day hold process and how it works. Mental Status Exam 2 MSE Comments: This is an underweight versus cachectic thin white male in hospital scrubs with limited grooming and eye contact. No abnormal movements except for psychomotor agitation. There was no evidence of any abnormal involuntary motor movements tics or tremors appreciated. Somewhat cooperative with exam in moderate distress. His speech was increased rate and normal volume. Mood described as fine, affect hyper and irritable. His thought process was linear but at times disorganized. His thought content showed no suicidal or homicidal ideation. There is some grandiose and delusions noted but no delusions reported. He had acknowledged auditory hallucinations and appeared to be preoccupied with excess rumination noted. He did appear to be responding to internal stimuli. Attention and concentration were limited and his recent and remote memory were limited but none were formally tested. He was alert and oriented times person and place. His insight, judgment and impulse control are all impaired. Vitals/I&O/Wt Last Vital Signs Temp 98.2 F 02/18/25 20:33 Pulse 84 02/19/25 06:00 Resp 16 02/19/25 06:00 BP 135/81 02/19/25 06:00 Pulse Ox 100 02/19/25 06:00 O2 Del Method Room Air 02/19/25 06:00 02/18/25 02/19/25 02/19/25 22:59 06:59 14:59 Intake Total 480 / 480 Balance 480 / 480 Data NPU 02/13/25 03:20 02/13/25 03:20 A&P Assessment and plan 1. Schizophrenia: 2. Acute psychosis: 3. Tamiko: Plan: This is a 24-year-old male admitted with a past history of schizophrenia versus bipolar disorder who presents on a 96-hour hold off of medication with severe psychosis including thought blocking and thought broadcasting was like previous hospitalization with positive UDS for cannabis. 1. Restart medication but plan to return to long-acting injectable. Will restart Abilify 10 mg p.o. daily. Increased Abilify to 20 mg p.o. daily. Initiate Abilify injection. Initiate Abilify Maintena 400 mg IM and patient will need 13 additional days of oral coadministration prior to being strictly on the oral Abilify. 2. Continue every 15 minute checks for safety. 3. Encourage individual, group and milieu therapy. 4. Encourage sober living treatment after discharge at the highest level care to which he is willing to commit. 5. Obtain collateral information. 6. Observe against the backdrop of the 96-hour hold. 21-day hold paperwork was filed with hearing tomorrow at 1130. PDMP PDMP Reviewed: Not Reviewed Involuntary Hold Information 2 Hold Status: Legal Status: 96 Hour Hold Date/Time Hold Expires: 02/19/25 @ 02:15 96 Hour Hold: 96 Hour Involuntary Admission: Yes Attestations NPU 2 Medical Necessity Statement*: Inpatient hospitalization is medically necessary and the clinically appropriate intervention at this time.? We will monitor/initiate medications and make changes as indicated. The patient?s likely length of stay 3-5 days. Coding Level of Care Code Acute Code for [facility] Fwd Diagnoses Schizophrenia F20.9 Acute psychosis F23 Tamiko F30.9
[2025-02-19] MEDS: ARIPiprazole Maintena 400 MG IM (11:08)
--- NOTE | 2025-02-19 11:19 | PC.NURSE ---
Pt given 400mg IM Abilify shot. Pt tolerated shot well.
--- NOTE | 2025-02-19 11:50 | PC.NURSE ---
Pt. was moved to the south side d/t he kept aggravating a female pt. on the north side. He escalated the female pt. to the point of needing medications and having to get security called down to the unit.
[2025-02-19 14:00] VITALS: RESP 16
[2025-02-19 20:22] VITALS: BP 134/90; PULSE 102; RESP 16; TEMP 36.9; O2SAT 98
[2025-02-20 04:41] VITALS: BP 119/83; PULSE 113; RESP 16; TEMP 36.6; O2SAT 98
--- NOTE | 2025-02-20 12:20 | PC.NURSE ---
1130 [place] 21day court appearance with the serif's deputy. Pt is off the unit.
--- NOTE | 2025-02-20 12:22 | PC.NURSE ---
1222 Pt is back on the unit, returned from court with the officers of the law.
[2025-02-20 14:00] VITALS: BP 115/88; PULSE 90; RESP 18; TEMP 36.9; O2SAT 98
--- NOTE | 2025-02-20 18:10 | P.NPUPN_ITS ---
Subjective NPU 2 Subjective: Patient presented today reporting that he is doing all right. He was without irritability or any negative symptoms or actions when he returned from the court house where he was placed on a 21-day hold. He expressed in the court that he did not think he needed to be here but he is excepting now that he is here. He reports tolerating the increase in his Abilify as well as the long-acting injectable that was administered yesterday. We continued to discuss wanting to have his energy reduced and his thought process slowed down prior to discharge back home. He denied any side effects of the medication. Mental Status Exam 2 MSE Comments: This is an underweight versus cachectic thin white male in hospital scrubs with limited grooming and eye contact. No abnormal movements except for mild psychomotor agitation. There was no evidence of any abnormal involuntary motor movements tics or tremors appreciated. More cooperative with exam in mild to moderate distress. His speech was increased rate and normal volume. Mood described as fine, affect hyper irritable but less. His thought process was linear but at times disorganized. His thought content showed no suicidal or homicidal ideation. There is some grandiose delusions noted but no delusions reported. He had denied auditory or visual hallucinations and appeared to be preoccupied with excess rumination noted. Attention and concentration were limited but improving and his recent and remote memory were limited but none were formally tested. He was alert and oriented times person and place. His insight, judgment and impulse control are all impaired. Vitals/I&O/Wt Last Vital Signs Temp 98.4 F 02/20/25 20:11 Pulse 102 H 02/20/25 20:11 Resp 18 02/20/25 20:11 BP 117/79 02/20/25 20:11 Pulse Ox 97 02/20/25 20:11 O2 Del Method Room Air 02/20/25 20:11 Data NPU 02/13/25 03:20 02/13/25 03:20 A&P Assessment and plan 1. Schizophrenia: 2. Acute psychosis: 3. Tamiko: Plan: This is a 24-year-old male admitted with a past history of schizophrenia versus bipolar disorder who presents on a 96-hour hold off of medication with severe psychosis including thought blocking and thought broadcasting was like previous hospitalization with positive UDS for cannabis. 1. Restart medication but plan to return to long-acting injectable. Will restart Abilify 10 mg p.o. daily. Increased Abilify to 20 mg p.o. daily. Initiate Abilify injection. Initiate Abilify Maintena 400 mg IM and patient will need 12 additional days of oral coadministration prior to being strictly on the oral Abilify. 2. Continue every 15 minute checks for safety. 3. Encourage individual, group and milieu therapy. 4. Encourage sober living treatment after discharge at the highest level care to which he is willing to commit. 5. Obtain collateral information. 6. Observe against the backdrop of the 96-hour hold. 21-day hold paperwork was filed with hearing today at 1130 Patient placed on a 21-day hold. PDMP PDMP Reviewed: Not Reviewed Involuntary Hold Information 2 Hold Status: Legal Status: 96 Hour Hold Date/Time Hold Expires: 03/13/25 96 Hour Hold: 96 Hour Involuntary Admission: Yes Attestations NPU 2 Medical Necessity Statement*: Inpatient hospitalization is medically necessary and the clinically appropriate intervention at this time.? We will monitor/initiate medications and make changes as indicated. The patient?s likely length of stay 3-5 days. Coding Level of Care Code Acute Code for g Fwd Diagnoses Schizophrenia F20.9 Acute psychosis F23 Tamiko F30.9
[2025-02-20 20:11] VITALS: BP 117/79; PULSE 102; RESP 18; TEMP 36.9; O2SAT 97
[2025-02-21 06:00] VITALS: BP 101/63; PULSE 91; RESP 16; TEMP 36.9; O2SAT 98
[2025-02-21 14:00] VITALS: BP 115/66; PULSE 97; RESP 18; TEMP 36.8; O2SAT 98
--- NOTE | 2025-02-21 20:25 | P.NPUPN_ITS ---
Subjective NPU 2 Subjective: Patient presented today reporting that he is doing fine. He reports the medication is working and he is thinking he is ready to go. We discussed having his roommate release one of his roommates come by and interact with him and see how close to baseline they feel he is at that we have a target for him for discharge. He was agreeable to that and we discussed working with the social work team to have them come by and give an assessment. We discussed him being somewhat less intrusive but still having some of that trait and hoping to see less of that. He denies any side effects to his medication. Mental Status Exam 2 MSE Comments: This is an underweight versus cachectic thin white male in hospital scrubs with limited grooming and eye contact. No abnormal movements except for mild psychomotor agitation. There was no evidence of any abnormal involuntary motor movements tics or tremors appreciated. More cooperative with exam in mild to moderate distress. His speech was increased rate and normal volume. Mood described as fine, affect hyper irritable but less. His thought process was linear but at times disorganized. His thought content showed no suicidal or homicidal ideation. There is some grandiose delusions noted but no delusions reported. He had denied auditory or visual hallucinations and appeared to be preoccupied with excess rumination noted. Attention and concentration were limited but improving and his recent and remote memory were limited but none were formally tested. He was alert and oriented times person and place. His insight, judgment and impulse control are all impaired. Vitals/I&O/Wt Last Vital Signs Temp 98.3 F 02/21/25 14:00 Pulse 97 02/21/25 14:00 Resp 18 02/21/25 14:00 BP 115/66 02/21/25 14:00 Pulse Ox 98 02/21/25 14:00 O2 Del Method Room Air 02/21/25 14:00 Data NPU 02/13/25 03:20 02/13/25 03:20 A&P Assessment and plan 1. Schizophrenia: 2. Acute psychosis: 3. Tamiko: Plan: This is a 24-year-old male admitted with a past history of schizophrenia versus bipolar disorder who presents on a 96-hour hold off of medication with severe psychosis including thought blocking and thought broadcasting was like previous hospitalization with positive UDS for cannabis. 1. Restart medication but plan to return to long-acting injectable. Will restart Abilify 10 mg p.o. daily. Increased Abilify to 20 mg p.o. daily. Initiate Abilify injection. Initiate Abilify Maintena 400 mg IM and patient will need 11 additional days of oral coadministration prior to being strictly on the oral Abilify. 2. Continue every 15 minute checks for safety. 3. Encourage individual, group and milieu therapy. 4. Encourage sober living treatment after discharge at the highest level care to which he is willing to commit. 5. Obtain collateral information. 6. Observe against the backdrop of the 96-hour hold. 21-day hold paperwork was filed with hearing today at 1130 Patient placed on a 21-day hold. PDMP PDMP Reviewed: Not Reviewed Involuntary Hold Information 2 Hold Status: Legal Status: 96 Hour Hold Date/Time Hold Expires: 03/13/25 96 Hour Hold: 96 Hour Involuntary Admission: Yes Attestations NPU 2 Medical Necessity Statement*: Inpatient hospitalization is medically necessary and the clinically appropriate intervention at this time.? We will monitor/initiate medications and make changes as indicated. The patient?s likely length of stay 3-5 days. Coding Level of Care Code Acute Code for g Fwd Diagnoses Schizophrenia F20.9 Acute psychosis F23 Tamiko F30.9
[2025-02-21 20:50] VITALS: BP 133/78; PULSE 87; RESP 18; TEMP 37.1; O2SAT 96
[2025-02-22 06:00] VITALS: BP 100/68; PULSE 84; RESP 16; TEMP 36.7; O2SAT 98
--- NOTE | 2025-02-22 07:50 | P.NPUPN_ITS ---
Subjective NPU 2 Subjective: Patient presented today reporting that he is doing fine feels he is probably ready for discharge. We discussed some slight improvement in his tamiko but continued need for observation to ensure that he has appropriate improvement. We did agree to have his roommate come in as an unbiased supporter and his roommate feels he has made improvement since he came in but still is struggling with his tamiko, intrusiveness and all the other things that we have expressed to him. He was okay with hearing that and he is aware that he is on a 21-day hold and will need to stay here until it has been determined that he has well enough for discharge. He denied any side effects of the medication. Mental Status Exam 2 MSE Comments: This is an underweight versus cachectic thin white male in hospital scrubs with limited grooming and eye contact. No abnormal movements except for mild psychomotor agitation. There was no evidence of any abnormal involuntary motor movements tics or tremors appreciated. More cooperative with exam in mild to moderate distress. His speech was increased rate and normal volume. Mood described as fine, affect hyper irritable but less. His thought process was linear but at times disorganized. His thought content showed no suicidal or homicidal ideation. There is some grandiose delusions noted but no delusions reported. He had denied auditory or visual hallucinations and appeared to be preoccupied with excess rumination noted. Attention and concentration were limited but improving and his recent and remote memory were limited but none were formally tested. He was alert and oriented times person and place. His insight, judgment and impulse control are all impaired. Vitals/I&O/Wt Last Vital Signs Temp 98.1 F 02/22/25 06:00 Pulse 84 02/22/25 06:00 Resp 16 02/22/25 06:00 BP 100/68 02/22/25 06:00 Pulse Ox 98 02/22/25 06:00 O2 Del Method Room Air 02/22/25 06:00 Data NPU 02/13/25 03:20 02/13/25 03:20 A&P Assessment and plan 1. Schizophrenia: 2. Acute psychosis: 3. Tamiko: Plan: This is a 24-year-old male admitted with a past history of schizophrenia versus bipolar disorder who presents on a 96-hour hold off of medication with severe psychosis including thought blocking and thought broadcasting was like previous hospitalization with positive UDS for cannabis. 1. Restart medication but plan to return to long-acting injectable. Will restart Abilify 10 mg p.o. daily. Increased Abilify to 20 mg p.o. daily. Initiate Abilify injection. Initiate Abilify Maintena 400 mg IM and patient will need 10 additional days of oral coadministration prior to being strictly on the oral Abilify. 2. Continue every 15 minute checks for safety. 3. Encourage individual, group and milieu therapy. 4. Encourage sober living treatment after discharge at the highest level care to which he is willing to commit. 5. Obtain collateral information. 6. Observe against the backdrop of the 96-hour hold. 21-day hold paperwork was filed with hearing today at 1130 Patient placed on a 21-day hold. PDMP PDMP Reviewed: Not Reviewed Involuntary Hold Information 2 Hold Status: Legal Status: 96 Hour Hold Date/Time Hold Expires: 03/13/25 96 Hour Hold: 96 Hour Involuntary Admission: Yes Attestations NPU 2 Medical Necessity Statement*: Inpatient hospitalization is medically necessary and the clinically appropriate intervention at this time.? We will monitor/initiate medications and make changes as indicated. The patient?s likely length of stay 3-5 days. Coding Level of Care Code Acute Code for [facility] Fwd Diagnoses Schizophrenia F20.9 Acute psychosis F23 Tamiko F30.9
[2025-02-22 14:00] VITALS: BP 122/76; PULSE 109; RESP 22; TEMP 37.1; O2SAT 97
[2025-02-22 20:31] VITALS: BP 132/95; PULSE 98; RESP 18; TEMP 36.7; O2SAT 99
[2025-02-23 06:00] VITALS: BP 105/72; PULSE 80; RESP 16; TEMP 36.6; O2SAT 97
--- NOTE | 2025-02-23 11:10 | P.NPUPN_ITS ---
Subjective NPU 2 Subjective: Patient presented today reporting that things are going all right. He continue to focus on the prospect of discharge but without as much ferver. He identified multiple options for him to discharge but we discussed making sure that we got things to a place where he would be welcome back by his roommates. He understood that as a plan. He denied any side effects to his medication. Mental Status Exam 2 MSE Comments: This is an underweight versus cachectic thin white male in hospital scrubs with limited grooming and eye contact. No abnormal movements except for mild psychomotor agitation. There was no evidence of any abnormal involuntary motor movements tics or tremors appreciated. More cooperative with exam in mild distress. His speech was increased rate and normal volume. Mood described as fine, affect less irritable and less intrusive. His thought process was linear but at times disorganized. His thought content showed no suicidal or homicidal ideation. There is some grandiose delusions noted but no delusions reported. He had denied auditory or visual hallucinations and appeared to be preoccupied with excess rumination noted. Attention and concentration were limited but improving and his recent and remote memory were limited but none were formally tested. He was alert and oriented times person and place. His insight, judgment and impulse control are all impaired. Vitals/I&O/Wt Last Vital Signs Temp 97.8 F 02/23/25 06:00 Pulse 80 02/23/25 06:00 Resp 16 02/23/25 06:00 BP 105/72 02/23/25 06:00 Pulse Ox 97 02/23/25 06:00 O2 Del Method Room Air 02/23/25 06:00 Data NPU 02/13/25 03:20 02/13/25 03:20 A&P Assessment and plan 1. Schizophrenia: 2. Acute psychosis: 3. Tamiko: Plan: This is a 24-year-old male admitted with a past history of schizophrenia versus bipolar disorder who presents on a 96-hour hold off of medication with severe psychosis including thought blocking and thought broadcasting was like previous hospitalization with positive UDS for cannabis. 1. Restart medication but plan to return to long-acting injectable. Will restart Abilify 10 mg p.o. daily. Increased Abilify to 20 mg p.o. daily. Initiate Abilify injection. Initiate Abilify Maintena 400 mg IM and patient will need 10 additional days of oral coadministration prior to being strictly on the oral Abilify. 2. Continue every 15 minute checks for safety. 3. Encourage individual, group and milieu therapy. 4. Encourage sober living treatment after discharge at the highest level care to which he is willing to commit. 5. Obtain collateral information. 6. Observe against the backdrop of the 96-hour hold. 21-day hold paperwork was filed with hearing today at 1130 Patient placed on a 21-day hold. PDMP PDMP Reviewed: Not Reviewed Involuntary Hold Information 2 Hold Status: Legal Status: 96 Hour Hold Date/Time Hold Expires: 03/13/25 96 Hour Hold: 96 Hour Involuntary Admission: Yes Attestations NPU 2 Medical Necessity Statement*: Inpatient hospitalization is medically necessary and the clinically appropriate intervention at this time.? We will monitor/initiate medications and make changes as indicated. The patient?s likely length of stay 3-5 days. Coding Level of Care Code Acute Code for [facility] Fwd Diagnoses Schizophrenia F20.9 Acute psychosis F23 Tamiko F30.9
[2025-02-23 14:26] VITALS: BP 120/81; PULSE 93; RESP 18; TEMP 36.6; O2SAT 97
[2025-02-23 21:00] VITALS: BP 110/75; PULSE 87; RESP 17; TEMP 36.5; O2SAT 97
[2025-02-24 06:00] VITALS: BP 101/63; PULSE 85; RESP 17; TEMP 36.7; O2SAT 98; BMI 18.2
--- NOTE | 2025-02-24 08:08 | P.NPUPN_ITS ---
Subjective NPU 2 Subjective: Patient presented today reporting that he is doing fine overall. He continued to have slow but steady improvement in his impulse control and we discussed him getting closer to a point of discharge. He is roommate did come in and identify improvement as well but him not being at baseline yet. He discussed when he left that he wanted to make sure he could work and so we discussed the fact that he needs to make sure that he is close to the baseline so that he does not mess up any of his work opportunities. He continues to identify a desire to leave we discussed that it would likely be at sometime this week. He denies any side effects to the medication. Mental Status Exam 2 MSE Comments: This is an underweight versus cachectic thin white male in hospital scrubs with limited grooming and eye contact. No abnormal movements except for mild psychomotor agitation. There was no evidence of any abnormal involuntary motor movements tics or tremors appreciated. More cooperative with exam in mild distress. His speech was increased rate and normal volume. Mood described as fine, affect less irritable and less intrusive. His thought process was linear but at times disorganized. His thought content showed no suicidal or homicidal ideation. There is some grandiose delusions noted but no delusions reported. He had denied auditory or visual hallucinations and appeared to be preoccupied with excess rumination noted. Attention and concentration were limited but improving and his recent and remote memory were limited but none were formally tested. He was alert and oriented times person and place. His insight, judgment and impulse control are all impaired. Vitals/I&O/Wt Last Vital Signs Temp 98.1 F 02/24/25 06:00 Pulse 85 02/24/25 06:00 Resp 17 02/24/25 06:00 BP 101/63 02/24/25 06:00 Pulse Ox 98 02/24/25 06:00 O2 Del Method Room Air 02/24/25 06:00 Weight last 48 hrs Weight 61.008 kg Data NPU 02/13/25 03:20 02/13/25 03:20 A&P Assessment and plan 1. Schizophrenia: 2. Acute psychosis: 3. Tamiko: Plan: This is a 24-year-old male admitted with a past history of schizophrenia versus bipolar disorder who presents on a 96-hour hold off of medication with severe psychosis including thought blocking and thought broadcasting was like previous hospitalization with positive UDS for cannabis. 1. Restart medication but plan to return to long-acting injectable. Will restart Abilify 10 mg p.o. daily. Increased Abilify to 20 mg p.o. daily. Initiate Abilify injection. Initiate Abilify Maintena 400 mg IM and patient will need 9 additional days of oral coadministration prior to being strictly on the oral Abilify. 2. Continue every 15 minute checks for safety. 3. Encourage individual, group and milieu therapy. 4. Encourage sober living treatment after discharge at the highest level care to which he is willing to commit. 5. Obtain collateral information. 6. Observe against the backdrop of the 96-hour hold. 21-day hold paperwork was filed with hearing today at 1130 Patient placed on a 21-day hold. PDMP PDMP Reviewed: Not Reviewed Involuntary Hold Information 2 Hold Status: Legal Status: 96 Hour Hold Date/Time Hold Expires: 03/13/25 96 Hour Hold: 96 Hour Involuntary Admission: Yes Attestations NPU 2 Medical Necessity Statement*: Inpatient hospitalization is medically necessary and the clinically appropriate intervention at this time.? We will monitor/initiate medications and make changes as indicated. The patient?s likely length of stay 2-4 days. Coding Level of Care Code Acute Code for [facility] Fwd Diagnoses Schizophrenia F20.9 Acute psychosis F23 Tamiko F30.9
[2025-02-24 13:24] VITALS: BP 125/82; PULSE 95; RESP 17; TEMP 36.7; O2SAT 98
[2025-02-24 20:18] VITALS: BP 106/70; PULSE 81; RESP 17; TEMP 36.8; O2SAT 99
[2025-02-25 06:00] VITALS: BP 112/72; PULSE 76; RESP 16; TEMP 36.6; O2SAT 99
[2025-02-25 14:00] VITALS: BP 120/74; PULSE 78; RESP 16; TEMP 37; O2SAT 98
--- NOTE | 2025-02-25 14:49 | P.NPUPN_ITS ---
Subjective NPU 2 Subjective: 24-year-old male with psychosis admitted with bizarre thoughts currently on a 21-day hold. Patient was unable to describe what had led him here into the hospital other than stating that the police had brought him here. He had stated that he was at the [facility] attempting to rent out the facility for specified period of time when he was brought here to the hospital. 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 He had admitted to using marijuana prior to arriving here. He had reported no side effects from his Abilify. The patient denied any suicidal thoughts at this time. Mental Status Exam 2 MSE Comments: This is an underweight versus cachectic thin white male in hospital scrubs with limited grooming and eye contact. No abnormal involuntary motor movements except for mild psychomotor activation as he was seen pacing the hallways. There was no evidence of any abnormal involuntary motor movements tics or tremors appreciated. He was partially cooperative on interview. His speech was normal in rate and normal volume. Mood described as good. His affect was odd and subdued. His thought process was linear but at times disorganized. His thought content showed no suicidal or homicidal ideation. There was some ideas of reference and odd delusions appreciated. He did at times appear to be responding to internal stimuli. Attention and concentration were limited but improving and his recent and remote memory were limited but none were formally tested. He was alert and oriented times person and place. His insight, judgment and impulse control are all impaired. Vitals/I&O/Wt Last Vital Signs Temp 97.8 F 02/25/25 06:00 Pulse 76 02/25/25 06:00 Resp 16 02/25/25 06:00 BP 112/72 02/25/25 06:00 Pulse Ox 99 02/25/25 06:00 O2 Del Method Room Air 02/25/25 06:00 Weight last 48 hrs Weight 61.008 kg Data NPU 02/13/25 03:20 02/13/25 03:20 A&P Assessment and plan 1. Schizophrenia: 2. Acute psychosis: 3. Tamiko: Plan: This is a 24-year-old male admitted with a past history of schizophrenia versus bipolar disorder who presents on a 96-hour hold off of medication with severe psychosis including thought blocking and thought broadcasting was like previous hospitalization with positive UDS for cannabis. 1. Restart medication but plan to return to long-acting injectable. Will restart Abilify 10 mg p.o. daily. Increased Abilify to 20 mg p.o. daily. Initiate Abilify injection. Initiate Abilify Maintena 400 mg IM and patient will need 9 additional days of oral coadministration prior to being strictly on the oral Abilify. 2. Continue every 15 minute checks for safety. 3. Encourage individual, group and milieu therapy. 4. Encourage sober living treatment after discharge at the highest level care to which he is willing to commit. 5. Obtain collateral information. 6. Patient on 21 day hold. PDMP PDMP Reviewed: Not Reviewed Involuntary Hold Information 2 Hold Status: Legal Status: 96 Hour Hold Date/Time Hold Expires: 03/13/25 96 Hour Hold: 96 Hour Involuntary Admission: Yes Attestations NPU 2 Medical Necessity Statement*: Inpatient hospitalization is medically necessary and the clinically appropriate intervention at this time.? We will monitor/initiate medications and make changes as indicated. The patient?s likely length of stay 3-5 days. Coding Level of Care Code Acute Code for [facility] Diagnoses Schizophrenia F20.9 Acute psychosis F23 Tamiko F30.9
[2025-02-25 20:08] VITALS: BP 117/67; PULSE 101; RESP 17; TEMP 36.5; O2SAT 95
[2025-02-26 06:00] VITALS: BP 116/79; PULSE 93; RESP 18; TEMP 36.7; O2SAT 99
[2025-02-26 14:00] VITALS: BP 120/87; PULSE 106; RESP 18; TEMP 36.9; O2SAT 99
--- NOTE | 2025-02-26 15:16 | W.PM.NPUPNS ---
Subjective NPU Subjective: 24-year-old male with psychosis admitted with bizarre thoughts currently on a 21-day hold. The patient continued to report hope that he could go to a sober living facility. He had continued to endorse having periods of racing thoughts. He had reported that he did not have a problem. He had endorsed being confused as to why he had been rejected and brought in by police as he had done nothing wrong. He had endorsed having periods where he felt that his thoughts were moving quickly. He had reported a previous diagnosis of tamiko and another previous hospitalization. Mental Status Exam MSE Comments: This is an underweight versus cachectic thin white male in hospital scrubs with limited grooming and intens eye contact. No abnormal involuntary motor movements except for mild psychomotor activation as he was seen pacing the hallways. There was no evidence of any abnormal involuntary motor movements tics or tremors appreciated. He was partially cooperative on interview. His speech was normal in rate and normal volume. Mood described as great. His affect was euphoric. His thought process was linear but derailed at times. His thought content showed no suicidal or homicidal ideation. There was some ideas of reference, grandiosity and odd delusions appreciated. He did not appear to be responding to internal stimuli. Attention and concentration were limited but improving and his recent and remote memory were limited but none were formally tested. He was alert and oriented times person and place. His insight, judgment and impulse control are all impaired. Vitals/I&O/Wt Last Vital Signs Temp 98.4 F 02/26/25 14:00 Pulse 106 H 02/26/25 14:00 Resp 18 02/26/25 14:00 BP 120/87 02/26/25 14:00 Pulse Ox 99 02/26/25 14:00 O2 Del Method Room Air 02/26/25 14:00 Data NPU 02/13/25 03:20 02/13/25 03:20 A&P Assessment and plan 1. Schizophrenia: 2. Acute psychosis: 3. Tamiko: Plan: This is a 24-year-old male admitted with a past history of schizophrenia versus bipolar disorder who presents on a 96-hour hold off of medication with severe psychosis including thought blocking and thought broadcasting was like previous hospitalization with positive UDS for cannabis. 1. Restart medication but plan to return to long-acting injectable. Will restart Abilify 10 mg p.o. daily. Increased Abilify to 20 mg p.o. daily. Initiate Abilify injection. Initiate Abilify Maintena 400 mg IM and patient will need 9 additional days of oral coadministration prior to being strictly on the oral Abilify. Consider addition of depakote ER 750mg in am. 2. Continue every 15 minute checks for safety. 3. Encourage individual, group and milieu therapy. 4. Encourage sober living treatment after discharge at the highest level care to which he is willing to commit. 5. Obtain collateral information. 6. Patient on 21 day hold. PDMP PDMP Reviewed: Not Reviewed Involuntary Hold Information Hold Status: Legal Status: 21 Day Hold Date/Time Hold Expires: 03/13/25 96 Hour Hold: 96 Hour Involuntary Admission: Yes Attestations NPU Medical Necessity Statement*: Inpatient hospitalization is medically necessary and the clinically appropriate intervention at this time.? We will monitor/initiate medications and make changes as indicated. The patient?s likely length of stay 3-5 days. Coding Level of Care Code Acute Code for [facility] Fwd Diagnoses Schizophrenia F20.9 Acute psychosis F23 Tamiko F30.9
[2025-02-26 19:59] VITALS: BP 126/86; PULSE 85; RESP 16; TEMP 36.7; O2SAT 98
[2025-02-27 06:00] VITALS: BP 121/70; PULSE 85; RESP 16; TEMP 36.5; O2SAT 97
[2025-02-27] MEDS: divalproex ER 500 mg Tablet (24H) 750 MG PO (08:11)
[2025-02-27 14:00] VITALS: BP 101/60; PULSE 90; RESP 16; TEMP 36.6; O2SAT 98
--- NOTE | 2025-02-27 14:38 | P.NPUPN_ITS ---
Subjective NPU 2 Subjective: 24-year-old male with psychosis admitted with bizarre thoughts, and disorganized speech currently on a 21-day hold. Patient had expressed some interest in returning to the [facility]. He did not appear to have any case management services. He had reported that he was feeling better and stated that he would continue to take his medications. Patient had continued to report that he needed to go out and began work again. He had reported having little recollection as to the events that had led to him being hospitalized although he had admitted to have not been compliant with his medications prior to arrival here in the hospital during this stay. Mental Status Exam 2 MSE Comments: This is a thin white male in hospital scrubs with improved grooming and intens eye contact. No abnormal involuntary motor movements except for mild psychomotor activation as he was seen pacing the hallways. There was no evidence of any abnormal involuntary motor movements tics or tremors appreciated. He was cooperative on interview. His speech was normal in rate and normal volume and productivity. Mood described as great. His affect was odd. His thought process was linear but superficial. His thought content showed no suicidal or homicidal ideation. There was some ideas of reference, grandiosity with no overt delusions. He did not appear to be responding to internal stimuli. Attention and concentration were limited but improving and his recent and remote memory were limited but none were formally tested. He was alert and oriented times person and place and time today. His insight was limited. His judgment and impulse control are improving. Vitals/I&O/Wt Last Vital Signs Temp 97.7 F 02/27/25 06:00 Pulse 85 02/27/25 06:00 Resp 16 02/27/25 06:00 BP 121/70 02/27/25 06:00 Pulse Ox 97 02/27/25 06:00 O2 Del Method Room Air 02/27/25 06:00 Data NPU 02/13/25 03:20 02/13/25 03:20 A&P Assessment and plan 1. Schizophrenia: 2. Acute psychosis: 3. Tamiko: Plan: This is a 24-year-old male admitted with a past history of schizophrenia versus bipolar disorder who presents on a 96-hour hold off of medication with severe psychosis including thought blocking and thought broadcasting was like previous hospitalization with positive UDS for cannabis. 1. Restart medication but plan to return to long-acting injectable. Will restart Abilify 10 mg p.o. daily. Continue Abilify now 30mg daily. Initiate Abilify Maintena 400 mg IM given on 02/19/25. Started depakote ER 750mg in am. 2. Continue every 15 minute checks for safety. 3. Encourage individual, group and milieu therapy. 4. Encourage sober living treatment after discharge at the highest level care to which he is willing to commit. 5. Obtain collateral information. 6. Patient on 21 day hold. PDMP PDMP Reviewed: Not Reviewed Involuntary Hold Information 2 Hold Status: Legal Status: 21 Day Hold Date/Time Hold Expires: 03/13/25 96 Hour Hold: 96 Hour Involuntary Admission: Yes Attestations NPU 2 Medical Necessity Statement*: Inpatient hospitalization is medically necessary and the clinically appropriate intervention at this time.? We will monitor/initiate medications and make changes as indicated. The patient?s likely length of stay 3-5 days. Coding Level of Care Code Acute Code for [facility] Diagnoses Schizophrenia F20.9 Acute psychosis F23 Tamiko F30.9
[2025-02-27 20:00] VITALS: BP 118/67; PULSE 88; RESP 16; TEMP 36.5; O2SAT 97
[2025-02-28 06:00] VITALS: BP 110/76; PULSE 92; RESP 110; TEMP 36.4; O2SAT 97
[2025-02-28] MEDS: divalproex ER 500 mg Tablet (24H) 750 MG PO (08:26)
[2025-02-28 14:00] VITALS: BP 130/86; PULSE 115; RESP 20; TEMP 36.6; O2SAT 99
[2025-02-28 14:48] VITALS: BP 110/76; PULSE 92; RESP 18; TEMP 36.4; O2SAT 97
--- NOTE | 2025-02-28 17:57 | W.PM.NPUDCS ---
Diagnoses at Discharge Discharge Diagnosis 1. Schizophrenia: 2. Acute psychosis: 3. Nunu: Reason for Visit Reason for Visit: mhe Brief History: History of Present Illness Dangelo Moore is a 24 year old male who presented to the emergency department with the following report: Chief complaint: Psychiatric Symptoms Stated complaint: mhe Time Seen by Provider: 02/13/25 00:01 History of Present Illness: 24yo M w/pmhx of anxiety, depression, h/o acute psychosis (prescribed APAP resolved at that time) with a chief complaint of mental health evaluation. On my exam, patient is alert, is able to answer questions appropriately. He is not suicidal, homicidal and denies any auditory or visual hallucinations. Per report, people that he lives with states he has not been acting himself, has stayed awake for the past 4 days and has been using nitrous oxide. Patient denies any other drug use aside from marijuana. He states that he called the police himself for wellness check although he states his intent was to check on another person. He states he would like to work for the police department. Patient states that he currently does have a job and is supposed to work tomorrow. He does not wish to be evaluated and does not wish to stay for psychiatric evaluation. He has otherwise not been ill, he denies fever, upper respiratory symptoms, shortness of breath, chest pain, abdominal pain, nausea, vomiting. He has not injured himself. Per roomates, he cannot stay at their house any more and is out there. Patient admits he has been noncompliant with his medications. He was admitted to the neuropsychiatric unit for definitive treatment of those issues. He is known to [facility] psychiatry through inpatient services and some crisis services. He presented with a UDS positive for cannabis only and his BAL was unremarkable. His major interaction with [facility] was throughout past psychiatric inpatient stay which ended in January 2024. An excerpt of the discharge summary is included below for context and the fact that he is a poor historian, and is psychotic and there have been no known substantive changes. He presents as a diminished and incapable historian reporting that he is here because he did what he was told to do. Some of his responses felt like parroting as he responded on those utilizing words or phraseology of this account underwriter. He denied knowledge of why he was asked to come here. He reports that things are fine and he had no issues. Though he did endorse not taking his medication for some time active use of marijuana but reporting that he has laid off of any alcohol. We discussed the risks, benefits and alternatives of initiating the medication and getting him back on medications to hope to address his odd behavior and he understood and agreed to proceed as is documented in this note. Other areas of questioning were fruitless though he did say that he lived with these 2 females and that things have been going fairly well. However the reports we have been receiving from collateral informants thus far have suggested quite the opposite. Per his 01/25/2024 [facility] inpatient psychiatric discharge summary: Discharge Diagnosis (1) Schizophrenia: Status: Acute Reason for Visit Reason for Visit: mhe Brief History: History of Present Illness Dangelo Moore is a 23 year old male who presented to the emergency department with complaints of being severely depressed. It was uncertain as to how the patient had come to arrive in the emergency department. He was admitted to the neuropsychiatric unit for further evaluation and treatment. On interview, the patient reports that he has been feeling more depressed. He had endorsed having some increase in suicidal thoughts but was not specific. He had answered questions extremely slowly with significant halting in his speech often lasting several seconds. He had reported that he had been previously treated for bipolar schizophrenia and stated that his previous medications had not helped him. He reports that he has not been on medication for several months. He had reported that he was initially from [place] and had come here less than a year ago in order to follow a girl. He denied any substance use. He had endorsed having increased concern that he would somehow be harmed and was reporting that he had concerns that others around him could read his mind and that his thoughts were being broadcasted. He reported having periods of intense depression but was unable to elaborate. He had reported having problems with concentration. The patient had reported no change in appetite. He had reported no clear problems with any medical issues. He had reported having some problems with managing his worry. He had indicated that he was having some difficulties with trusting others. He stated that he had previously been psychiatrically hospitalized and stated that he did not like hospitals and that he did not like taking medications. The patient had reported that he had felt that he was in some kind of trouble because he was lying to others but he did not elaborate regarding this matter. Inpatient psychiatric history: Patient had reported 2 previous inpatient hospitalizations in the last few years 1 in [facility] and another in hospital in [place] both for psychiatric issues. Previous records had revealed that the patient had been treated with Abilify on an inpatient basis as well. Outpatient psychiatric history: None Substance abuse history: He had minimized any use of drugs or alcohol. Allergies: Penicillin Medical history: None reported Surgical history: None reported Current medications: None reported Legal history: He had reported some history of having his fingerprints tested but reported no clear legal problems. Family psychiatric history: He had reported a history of bipolar and schizophrenia and the maternal side of the family. Social history: Patient reports that he was born in [facility]. He reported that he had graduated from high school. He had denied any history of trauma during his childhood and reports that he grew up residing with his mother and stepfather. He had reported no siblings. He had reported having to previous relationships and reported having a recent break-up with a girl in [place] as well as a previous relationship with another woman in [place] who he states chose to stay in [place] when the patient moved to [place] for less than obvious reasons. He denied any history of sexual physical or emotional abuse. Hospital Course He slowly acclimated to the individual, group and milieu therapies provided. He presented reporting some issaddiction however his UDS was negative and his BAL was unremarkable. He presented with psychosis and was eventually started on Invega but did not respond well to that and was switched over to Abilify which was titrated to 20 mg p.o. daily. He was then put on the Abilify Maintena injections 400 mg IM prior to discharge and given oral coadministration as advised for 14 days. He had a positive response. He had some challenges from the standpoint of finances and housing. He worked with the social work team on those issues. He was on a 96-hour hold and we observe him against the backdrop of the issues related to that. He worked with the social work team to get appropriate outpatient appointments and follow ups and was able to get sober living and residential treatment and more to life. He had significant improvement during his stay. He was able to contract for safety outside of the hospital prior to discharge. During the hospitalization, he had routine laboratory studies which were within normal limits except for a few outliers. Additionally she had a general medical evaluation which was also within normal limits and revealed no new acute processes. At the time of discharge, he denied psychosis or lethality. His mood and anxiety was well managed. He endorse a plan to avoid all drugs of abuse and follow-up with the treatment team recommendations after discharge. He was evaluated and deemed to be absent credible lethality, and had achieved the maximum benefit from inpatient hospitalization. So he was discharged. Hospital Course Hospital Course During the hospitalization, the patient had routine laboratory studies which were within normal limits except for a few outliers.? The patient was initially started on Abilify after being placed on a 21-day hold. This medication was titrated up to a dose of 30 mg daily. He did not appear to suffer any side effects from this medication. In addition, the patient was given Abilify intramuscularly at 400 mg on 02/19/2025. He continued to show evidence of psychosis and possible nunu. Depakote was started and titrated up to a dose of 1000 mg extended release once a day at the day of discharge. Additionally, there was a general medical evaluation which was also within normal limits and revealed no new acute processes.? At the time of discharge, lethality was denied and psychosis was resolving.? Mood and anxiety were well managed.? The patient endorsed a plan to avoid all drugs of abuse and follow up with the aftercare recommendations of the treatment team.? The patient was evaluated and deemed to be absent credible lethality and had achieved the maximum benefit from an inpatient hospitalization, and so was discharged.? He expressed desire to return to [facility] for further treatment and residence. Involuntary Hold Information Hold Status: Legal Status: 21 Day Hold Date/Time Hold Expires: 03/13/25 96 Hour Hold: 96 Hour Involuntary Admission: Yes Mental Status Exam MSE Comments: This is a thin white male in hospital scrubs with improved grooming and intens eye contact. No abnormal involuntary motor movements except for mild psychomotor activation as he was seen pacing the hallways. There was no evidence of any abnormal involuntary motor movements tics or tremors appreciated. He was cooperative on interview. His speech was normal in rate and normal volume and productivity. Mood described as good. His affect was euthymic on discharge. His thought process was linear and logical. His thought content showed no suicidal or homicidal ideation. There was some ideas of reference, grandiosity with no overt delusions. He did not appear to be responding to internal stimuli. Attention and concentration were better on discharge and his recent and remote memory were limited but none were formally tested. He was alert and oriented times person and place and time today. His insight was limited. His judgment and impulse control are improving. Discharge Data Studies Completed and Pending: Laboratory Results WBC 6.42 10^3/uL (3.2 9-11.43) 02/13/25 03:20 RBC 4.69 10^6/uL (3.8 5-5.65) 02/13/25 03:20 Hgb 14.00 g/dL (11.27 -16.99) 02/13/25 03:20 Hct 40.1 % (37-53) 02/13/25 03:20 MCV 85.5 fl (82-101) 02/13/25 03:20 MCH 29.9 pg (27-33) 02/13/25 03:20 MCHC 34.9 g/dL (30-55) 02/13/25 03:20 RDW 12.6 % (12.1-15.1 ) 02/13/25 03:20 Plt Count 255 10^3/cmm (157 -399) 02/13/25 03:20 MPV 9.9 fL (7.4-10.4) 02/13/25 03:20 Neut % (Auto) 55.5 % 02/13/25 03:20 Lymph % (Auto) 33.3 % 02/13/25 03:20 Kinney % (Auto) 9.0 % 02/13/25 03:20 Eos % (Auto) 0.9 % 02/13/25 03:20 Baso % (Auto) 1.1 % 02/13/25 03:20 Neut # (Auto) 3.56 10^3/uL (1.8 -7.7) 02/13/25 03:20 Lymph # (Auto) 2.1 10^3/uL (0.8- 4.8) 02/13/25 03:20 Kinney # (Auto) 0.6 10^3/uL (0.2- 0.9) 02/13/25 03:20 Eos # (Auto) 0.1 10^3/uL (0.0- 0.8) 02/13/25 03:20 Baso # (Auto) 0.1 10^3/uL (0.0- 0.1) 02/13/25 03:20 Nucleated RBC % (a uto) 0 % 02/13/25 03:20 Nucleated RBCs # 0.0 /100WBC 02/13/25 03:20 Sodium 134 mmol/L (136-1 45) L 02/13/25 03:20 Potassium 3.5 mmol/L (3.5-5 .1) 02/13/25 03:20 Chloride 98 mmol/L (98-107 ) 02/13/25 03:20 Carbon Dioxide 23 mmol/L (22-29) 02/13/25 03:20 Anion Gap 16.5 (5-19) 02/13/25 03:20 BUN 8 mg/dL (6-20) 02/13/25 03:20 Creatinine 0.7 mg/dL (0.7-1. 2) 02/13/25 03:20 GFR Calculation 138.6 mL/min (90- 130) H 02/13/25 03:20 Glucose 103 mg/dL (65-115 ) 02/13/25 03:20 Calculated Osmolal ity 277 mOsm/kg (285- 295) L 02/13/25 03:20 Calcium 9.3 mg/dL (8.5-10 .5) 02/13/25 03:20 Total Bilirubin 0.5 mg/dL (0.15-1 .2) 02/13/25 03:20 AST 20 U/L (0-40) 02/13/25 03:20 ALT 11 U/L (0-41) 02/13/25 03:20 Alkaline Phosphata se 77 U/L (40-130) 02/13/25 03:20 Total Protein 7.1 g/dL (6.6-8.7 ) 02/13/25 03:20 Albumin 4.6 g/dL (3.5-5.2 ) 02/13/25 03:20 Globulin 2.5 g/dL (1.3-4.6 ) 02/13/25 03:20 TSH 2.20 uIU/mL (0.27 -4.20) 02/13/25 03:20 Urine Color Yellow (Yellow) 02/13/25 00:24 Urine Appearance Clear (CLEAR) 02/13/25 00:24 Urine pH 6.0 (5-7) 02/13/25 00:24 Ur Specific Gravit y 1.010 (1.005-1.0 30) 02/13/25 00:24 Urine Protein Negative (Negati ve) 02/13/25 00:24 Urine Glucose (UA) Negative (Normal ) 02/13/25 00:24 Urine Ketones Negative (Negati ve) 02/13/25 00:24 Urine Blood Negative (Negati ve) 02/13/25 00:24 Urine Nitrate Negative (Negati ve) 02/13/25 00:24 Urine Bilirubin Negative (Negati ve) 02/13/25 00:24 Urine Urobilinogen 0.2 mg/dL (Negati ve) 02/13/25 00:24 Ur Leukocyte Sayra ase Negative (Negati ve) 02/13/25 00:24 Urine RBC 0-2 /hpf (0-2) 02/13/25 00:24 Urine WBC 0-5 /hpf (0-5) 02/13/25 00:24 Ur Squamous Epith Cells 0-5 /hpf (0-5) 02/13/25 00:24 Amorphous Sediment Not Reportable 02/13/25 00:24 Urine Bacteria None seen /hpf (N ONE) 02/13/25 00:24 Hyaline Casts 0-4 /lpf H 02/13/25 00:24 Salicylates < 0.3 mg/dL (3-10 ) L 02/13/25 03:20 Urine Opiates Scre en Negative ng/mL (N egative) 02/13/25 00:24 Acetaminophen < 5.0 ug/mL (10-3 0) L 02/13/25 03:20 Ur Barbiturates Sc reen Negative ng/mL (N egative) 02/13/25 00:24 Valproic Acid 39.2 ug/mL (50-10 0) L 02/28/25 09:23 Ur Phencyclidine S crn Negative ng/mL (N egative) 02/13/25 00:24 Ur Amphetamines Sc reen Negative ng/mL (N egative) 02/13/25 00:24 U Benzodiazepines Scrn Negative ng/mL (N egative) 02/13/25 00:24 Urine Cocaine Scre en Negative ng/mL (N egative) 02/13/25 00:24 U Marijuana (THC) Screen Positive ng/mL (N egative) H 02/13/25 00:24 Ethyl Alcohol < 10 mg/dL (0-10) 02/13/25 03:20 Vitals: Last Vital Signs Temp 97.6 F 02/28/25 14:48 Pulse 92 02/28/25 14:48 Resp 18 02/28/25 14:48 BP 110/76 02/28/25 14:48 Pulse Ox 97 02/28/25 14:48 O2 Del Method Room Air 02/28/25 14:00 Discharge Plan Discharge Patient Disposition: Home Condition: Stable Prescriptions: New divalproex 500 mg Tablet Extended Release 24 Hr 1,000 mg PO DAILY 30 Days Qty: 60 1RF aripiprazole 15 mg tablet 15 mg PO DAILY 30 Days Qty: 30 1RF Abilify Maintena 400 mg suspension,extended rel recon 400 mg IM Q28D Qty: 1 1RF Rx Instructions: Next IM injection due on 03/19/25. Discharge Order = DC NOW: Discharge Order (Routine); Ordered 02/28/25 Ordered By: Justo Ordaz Referrals: [facility] [Other] - 02/28/25 4:30 am Referral Note: Admission [facility] [Outside] Discharge Diet: Usual diet Discharge Activity: Resume usual activity Patient Instructions: Aripiprazole (By injection) (Abilify Maintena Dual-Chambered..., Depression (DC), Help Prevent Suicide (DC), Opioid Safety, Patient Portal & Chris Instructions Discharge Attestations NPU Time Spent in Discharge Care*: less than 30 min Specific Discharge Activities: Specific discharge activities: educating patient, discussing with watch caser/social workers/dc planners and evaluating patient/reviewing data Coding Level of Care Code Acute Code for g Fwd Diagnoses Schizophrenia F20.9 Acute psychosis F23 Nunu F30.9
== END 2025-02-28 16:22 | disposition home or self-care (01) | DRG 885 ==
LOC: ER 02-13 07:45 → NP 02-13 11:21
PROVIDERS: Admitting Provider Psychiatry & Neurology Psychiatry; Emergency Provider Emergency Medicine; Visit Provider Psychiatry & Neurology Psychiatry
DX: F20.9 Schizophrenia, unspecified (principal); Z68.1 Body mass index [BMI] 19.9 or less, adult; T43.596A Underdosing of other antipsychotics and neuroleptics, initial encounter; Z91.128 Patient's intentional underdosing of medication regimen for other reason; R63.6 Underweight; Z87.891 Personal history of nicotine dependence; Z88.0 Allergy status to penicillin; F30.9 Manic episode, unspecified
CPT/HCPCS: 36415; 80053; 80164; 80306; 80307; 81001; 84443; 85025; 96372; 97150; 97165; 99285; J1200; J1630; J2060; J3486; J9999

== ENCOUNTER 2025-03-20 02:19 | Emergency (ER) | payer MEDICAID, SELFPAY ==
[2025-03-20 02:20] VITALS: BP 141/100; PULSE 93; RESP 18; TEMP 36.7; O2SAT 99; BMI 21.5
--- NOTE | 2025-03-20 02:24 | W.ED.GENADLT ---
HPI - General Adult General: Chief complaint: Recheck/Abnormal Lab/Rx Stated complaint: needs medication Time Seen by Provider: 03/20/25 02:21 History of Present Illness: 24-year-old male with history of schizophrenia who presents emergency room with police for medication refill. He is not able to sleep without trazodone he says. He has quite pressured speech. No other complaints at this time. No chest pain. No abdominal pain. No nausea or vomiting. Related Data Previous Rx's ?Medication ?Instructions ?Recorded aripiprazole 15 mg tablet 15 mg PO DAILY 30 days #30 tabs 02/28/25 aripiprazole 400 mg intramuscular 400 mg IM Q28D #1 ea 02/28/25 suspension,extended release (Abilify Maintena) divalproex 500 mg tablet,extended 1,000 mg (2 x 500 mg) PO DAILY 30 02/28/25 release 24 hr days #60 tabs aripiprazole 15 mg tablet 15 mg PO DAILY 30 days #30 tabs 03/20/25 trazodone 50 mg tablet 50 mg PO .qhs PRN insomnia #30 tabs 03/20/25 Allergies Allergy/AdvReac Type Severity Reaction Status Date / Time Penicillins Allergy ALGY-Swell Verified 02/13/25 00:19 Lip/Tongue/Throat Review of Systems Narrative: Constitutional symptoms: Negative except as documented in HPI. Skin symptoms: Negative except as documented in HPI. Eye symptoms: Negative except as documented in HPI. ENMT symptoms: Negative except as documented in HPI. Respiratory symptoms: Negative except as documented in HPI. Cardiovascular symptoms: Negative except as documented in HPI. Gastrointestinal symptoms: Negative except as documented in HPI. Genitourinary symptoms: Negative except as documented in HPI. Musculoskeletal symptoms: Negative except as documented in HPI. Neurologic symptoms: Negative except as documented in HPI. Psychiatric symptoms: Negative except as documented in HPI. Endocrine symptoms: Negative except as documented in HPI. PFSH ED PFSH: Social History Smoking and tobacco/nicotine status: former use of tobacco/nicotine Physical Exam Narrative: EXAM NARRATIVE: General: Alert, no acute distress. Skin: warm and dry Head: Normocephalic Neck: Trachea midline Eye: Extraocular movements are intact. Ears, nose, mouth and throat: Oral mucosa moist Respiratory: Respirations are non-labored Musculoskeletal: Normal ROM Gastrointestinal: Abdomen does not appear distended Neurological: Alert and oriented, No focal neurological deficit observed. Psychiatric: Cooperative, patient has fairly pressured speech Course Vital Signs: Vital signs: Vital Signs Temperature 98.0 F 03/20/25 02:20 Pulse Rate 93 03/20/25 02:20 Respiratory Rate 18 03/20/25 02:20 Blood Pressure 141/100 03/20/25 02:20 Pulse Oximetry 99 03/20/25 02:20 Oxygen Delivery Me thod Room Air 03/20/25 02:20 MDM - General Adult Medical Decision Making Medical decision making Patient's reason for coming to the emergency room: Cannot sleep Social determinants: Patient is in skilled nursing I reviewed the patient's medical record. I do not see trazodone listed in the patient's medication history but I do not think that is an appropriate to help him sleep I reviewed the patient's current home meds As above Alternate historians: None Differential diagnosis: This patient has schizophrenia and insomnia. No indications for any testing or lab work today. I will give him a prescription for his Abilify and some trazodone. Assessment and plan: Insomnia - Discharged home - Discussed plan with patient. Answered any questions. - Evaluation and treatment of this problem were appropriate in the emergency setting. No radiology studies performed this visit Discharge Plan Discharge Patient Disposition: Home Clinical Impression: Schizophrenia, Insomnia Condition: Stable Prescriptions: New aripiprazole 15 mg tablet 15 mg PO DAILY 30 Days Qty: 30 0RF trazodone 50 mg tablet 50 mg PO .qhs PRN (Reason: insomnia) Qty: 30 0RF No Action divalproex 500 mg Tablet Extended Release 24 Hr 1,000 mg PO DAILY 30 Days Qty: 60 1RF aripiprazole 15 mg tablet 15 mg PO DAILY 30 Days Qty: 30 1RF Abilify Maintena 400 mg suspension,extended rel recon 400 mg IM Q28D Qty: 1 1RF Rx Instructions: Next IM injection due on 03/19/25. Discharge Orders: Discharge ED (Routine); Ordered 03/20/25 Ordered By: Suzanne Toribio Discharge Diet: Usual diet Discharge Activity: Increase activity as tolerated Patient Instructions: Opioid Safety, Pain Management, Patient Portal & Chris Instructions Activity Restrictions/Additional Instructions: Thank you for choosing [facility] for your healthcare needs today. You have been screened and evaluated and felt safe for discharge. Health conditions do change or evolve sometimes and as such it is important that you follow up with your Primary Doctor to be re checked, 3-5 days is a general good time frame for follow up. You are always welcome to return to the ED for re assessment if your symptoms are worsening or you have new concerns Print Language: Gambian Coding Level of Care Code ED Dock Or Pier Laborer for Shanika Carter
[2025-03-20 02:43] VITALS: BP 143/115; PULSE 99; RESP 18; O2SAT 98
== END 2025-03-20 02:49 | disposition home or self-care (01) ==
PROVIDERS: Emergency Provider Emergency Medicine
DX: F20.9 Schizophrenia, unspecified (principal); G47.00 Insomnia, unspecified; Z87.891 Personal history of nicotine dependence
CPT/HCPCS: 99282; J9999

== ENCOUNTER 2025-03-21 21:29 | Emergency (ER) | payer MEDICAID, SELFPAY ==
[2025-03-21 21:31] VITALS: BP 132/89; PULSE 98; RESP 20; TEMP 37.3; O2SAT 97; BMI 21.5
--- NOTE | 2025-03-21 22:19 | W.ED.PSYCHS ---
HPI - Psych General: Chief Complaint: Psychiatric Symptoms Stated Complaint: MHE Time Seen by Provider: 03/21/25 22:08 History of Present Illness: Patient is a 24-year-old gentleman that presents to the ED due to transient psychosis. He has a history of schizophrenia, and was just here for psychiatric evaluation. He states compliance to his Abilify, Depakote, trazodone. He states that late this evening, jew of Angel Hilton, in the mornings, came to the door, and stated he was Angel Hilton. When they stated he was Angel Hilton, he called 911, and stated he needed to get help for being Angel Hilton there was brought to the ER. Associated symptoms: Deny depression, homicidal ideation or suicidal ideation Related Data Previous Rx's ?Medication ?Instructions ?Recorded aripiprazole 15 mg tablet 15 mg PO DAILY 30 days #30 tabs 02/28/25 aripiprazole 400 mg intramuscular 400 mg IM Q28D #1 ea 02/28/25 suspension,extended release (Abilify Maintena) divalproex 500 mg tablet,extended 1,000 mg (2 x 500 mg) PO DAILY 30 02/28/25 release 24 hr days #60 tabs aripiprazole 15 mg tablet 15 mg PO DAILY 30 days #30 tabs 03/20/25 trazodone 50 mg tablet 50 mg PO .qhs PRN insomnia #30 tabs 03/20/25 Allergies Allergy/AdvReac Type Severity Reaction Status Date / Time Penicillins Allergy ALGY-Swell Verified 02/13/25 00:19 Lip/Tongue/Throat Review of Systems General: Reports: 10 or more systems reviewed and unremarkable except in HPI and below Const: Denies: fever(s) or chills Eyes: Denies: change in vision or blurry vision ENMT: Denies: throat pain or mouth pain Card: Denies: chest pain or palpitations Resp: Denies: dyspnea or non-productive cough GI: Denies: abdominal pain, nausea or vomiting : Denies: flank pain or dysuria Musc: Denies: neck pain, back pain, extremity pain or extremity swelling Skin/Breast: Denies: rash or pruritus Neuro: Denies: headache(s), numbness in extremities, weakness in extremities, sensory changes or lack of coordination Psych: Reports: anxiety and paranoia; Denies: depression, panic attacks, suicidal ideation or homicidal ideation PFSH ED PFSH: Social History Smoking and tobacco/nicotine status: former use of tobacco/nicotine Physical Exam Const: COMMON NORMALS: no acute distress, average body habitus, patient oriented x3, no limitations, healthy appearing, alert and well nourished GENERAL APPEARANCE: cooperative, well kempt and well developed Eye: COMMON NORMALS: Equal, round and reactive pupils present PUPIL: Yes Equal, round and reactive pupils present Neck/C-Spine: GENERAL: Yes normal visual inspection Resp: COMMON NORMALS: clear to auscultation bilaterally EFFORT & INSPECTION: Yes able to speak in complete sentences AUSCULTATION: clear to auscultation bilaterally Cardio: COMMON NORMALS: regular rate and regular rhythm RATE: regular rate RHYTHM: regular rhythm GI: INSPECTION: Yes normal to inspection : COMMON NORMALS: Yes no CVA tenderness BLADDER/KIDNEY EXAM: Yes no CVA tenderness Back/Pelvis: COMMON NORMALS: no CVA tenderness and thoracic and lumbar spine normal to inspection Extremity: COMMON NORMALS: normal to inspection, full ROM and capillary refill normal Neuro: COMMON NORMALS: patient oriented x3 SENSORIUM/ORIENTATION: Yes alert Psych: APPEARANCE: Yes well kempt MOOD & AFFECT: No depressed mood Skin: HAIR: normal Course Vital Signs: Vital signs: Vital Signs Temperature 99.2 F 03/21/25 21:31 Pulse Rate 98 03/21/25 21:31 Respiratory Rate 20 H 03/21/25 21:31 Blood Pressure 132/89 03/21/25 21:31 Pulse Oximetry 97 03/21/25 21:31 [facility] - Psych Medical Decision Making Patient is a 24-year-old gentleman that is diagnosed with schizophrenia, that had some confusion, psychosis with the more events coming to his door tonight. There is no affidavits on the chart. He called 911. He states he had already taken his medication for tonight. He denies any suicide ideations. He was literally just confused and concerned that he was Angel Yobani and thought he needed to come get evaluated. He denies any homicidal ideations. I see no reason not to discharge him. I see no reason to place him in a psychiatric evaluation. Medical Records I reviewed the patient's medical records. No radiology studies performed this visit Discharge Plan Discharge Patient Disposition: Home Clinical Impression: Schizophrenia, Acute anxiety Condition: Stable Prescriptions: No Action aripiprazole 15 mg tablet 15 mg PO DAILY 30 Days Qty: 30 0RF trazodone 50 mg tablet 50 mg PO .qhs PRN (Reason: insomnia) Qty: 30 0RF divalproex 500 mg Tablet Extended Release 24 Hr 1,000 mg PO DAILY 30 Days Qty: 60 1RF aripiprazole 15 mg tablet 15 mg PO DAILY 30 Days Qty: 30 1RF Abilify Maintena 400 mg suspension,extended rel recon 400 mg IM Q28D Qty: 1 1RF Rx Instructions: Next IM injection due on 03/19/25. Discharge Orders: Discharge ED (Routine); Ordered 03/21/25 Ordered By: Nimco Millan Discharge Diet: Usual diet Discharge Activity: Resume usual activity Patient Instructions: Schizophrenia (ED), Brief Psychotic Disorder (ED), Patient Portal & Chris Instructions Activity Restrictions/Additional Instructions: - You are doing a good job taking your medication. Continue your compliance so you do not have ongoing concerns with confusion and psychosis - It was nice to meet you josefina Pierson. Take care of yourself. - Come back to the ED if you have suicide ideations. Thank you for choosing [facility] for your healthcare needs today. You have been screened and evaluated and felt safe for discharge. Health conditions do change or evolve sometimes and as such it is important that you follow up with your Primary Doctor to be re checked, 3-5 days is a general good time frame for follow up. You are always welcome to return to the ED for re assessment if your symptoms are worsening or you have new concerns Print Language: Citizen Of [place] Coding Level of Care Code ED Engine Lathe Tender for Shanika Carter
== END 2025-03-21 22:37 | disposition home or self-care (01) ==
PROVIDERS: Emergency Provider Physician Assistant
DX: F20.9 Schizophrenia, unspecified (principal); F41.8 Other specified anxiety disorders; Z87.891 Personal history of nicotine dependence
CPT/HCPCS: 99283